=== PATIENT | female | born 1940 ===

== ENCOUNTER 2017-08-03 10:14 | Inpatient (IN) | payer MEDICAID, OTHER ==
[2017-08-03 10:25] VITALS: BMI 34.0
[2017-08-03] MEDS ORDERED: Albuterol-Ipratrop 3 mg / 0.5 (3 ml) UD IH STA (10:35)
[2017-08-03] MEDS ORDERED: MethylPREDNISolone 40 mg Vial IVP STA (10:35)
--- NOTE | 2017-08-03 10:41 | ED PDOC ---
Arrival/HPI - General Chief Complaint: Altered Mental Status Time Seen by Provider: 08/03/17 10:25 Historian: Patient, Family - History of Present Illness Narrative History of Present Illness (Text): 08/03/17 10:26 A 77 year old female, whose past medical history includes diabetes on insulin, and kidney failure, presents to the emergency department via EMS accompanied by family member who states when he found the patient this morning in bed she was unresponsive and he checked her blood sugar levels which showed to be at 37, he proceeded to give her a sugar pill that only elevated her level to 39, that is when he decided to call 911. The patient was given dextrose in the field, which brought her new blood sugar reading to 118, the patient was also given oxygen on the field because her oxygen saturation levels were low. The patient currently denies any chest pain, abdominal pain, shortness of breath, fever, or any other complaints at this time. She does note a minor cough and chills. The patient's family member reports the patient had a multiple surgeries for right ankle repair about 3-4 months ago Time/Duration: Prior to Arrival Symptom Onset: Sudden Symptom Course: Improving Activities at Onset: Rest Context: Home Past Medical History - Provider Review Nursing Documentation Reviewed: Yes - Infectious Disease Hx of Infectious Diseases: None - Cardiac Hx Cardiac Disorders: Yes Hx Hypertension: Yes - Pulmonary Hx Respiratory Disorders: No - Neurological Hx Neurological Disorder: No - HEENT Hx HEENT Disorder: No - Renal Hx Renal Disorder: Yes Hx Renal Failure: Yes - Endocrine/Metabolic Hx Endocrine Disorders: Yes Hx Diabetes Mellitus Type 2: Yes - Hematological/Oncological Hx Blood Disorders: No - Integumentary Hx Dermatological Disorder: No - Musculoskeletal/Rheumatological Hx Musculoskeletal Disorders: Yes Hx Arthritis: Yes - Gastrointestinal Hx Gastrointestinal Disorders: No - Genitourinary/Gynecological Hx Genitourinary Disorders: No - Psychiatric Hx Psychophysiologic Disorder: No Hx Substance Use: No - Surgical History Hx Musculoskeletal Surgery: Yes (R ankle) - Anesthesia Hx Anesthesia: Yes Hx Anesthesia Reactions: No Family/Social History - Physician Review Nursing Documentation Reviewed: Yes Family/Social History: No Known Family HX Smoking Status: Never Smoked Hx Alcohol Use: Yes Frequency of alcohol use: Socially Hx Substance Use: No Allergies/Home Meds Allergies/Adverse Reactions: Allergies No Known Allergies Allergy (Verified 08/03/17 15:33) Home Medications: Home Meds Medication Instructions Recorded Confirmed Carvedilol [Coreg] 12.5 mg PO BID 08/03/17 08/03/17 Hydralazine HCl [Hydralazine HCl] 10 mg PO BID 08/03/17 08/03/17 Insulin Detemir [Levemir] 10 units SQ HS 08/03/17 08/03/17 Insulin Lispro [humALOG] 4 units SQ TID 08/03/17 08/03/17 Pravastatin Sodium [Pravachol] 20 mg PO DAILY 08/03/17 08/03/17 amLODIPine [Norvasc] 10 mg PO DAILY 08/03/17 08/03/17 Review of Systems - Physician Review All systems were reviewed & negative as marked: Yes - Review of Systems Constitutional: Other (chills) Respiratory: Cough. absent: SOB Cardiovascular: absent: Chest Pain Gastrointestinal: absent: Abdominal Pain Physical Exam Vital Signs Reviewed: Yes Vital Signs Temp Pulse Resp BP Pulse Ox 08/03/17 13:22 92.2 F L 60 20 130/56 L 93 L 08/03/17 13:10 42 L 90/42 L 08/03/17 12:06 91 F L 38 L 18 90/42 L 97 08/03/17 10:24 91.2 F L 47 L 21 93/37 L 93 L Blood Pressure: Hypotensive Pulse: Bradycardic Respiratory Rate: Apneic Appearance: Positive for: Well-Appearing, Non-Toxic, Comfortable Pain Distress: None Mental Status: Positive for: Alert and Oriented X 3 - Systems Exam Head: Present: Atraumatic, Normocephalic Pupils: Present: PERRL Extroacular Muscles: Present: EOMI Conjunctiva: Present: Normal Mouth: Present: Moist Mucous Membranes Neck: Present: Normal Range of Motion Respiratory/Chest: Present: Wheezes (scattered wheezing ), Decreased Breath Sounds (diminshed breath sounds bilaterally at the bases). No: Respiratory Distress, Accessory Muscle Use Cardiovascular: Present: Regular Rate and Rhythm, Normal S1, S2. No: Murmurs Abdomen: Present: Normal Bowel Sounds. No: Tenderness, Distention, Peritoneal Signs Back: Present: Normal Inspection Upper Extremity: Present: Normal Inspection. No: Cyanosis, Edema Lower Extremity: Present: Edema (1+ edema bilaterally ) Neurological: Present: GCS=15, CN II-XII Intact, Speech Normal Skin: Present: Warm, Dry, Normal Color. No: Rashes Psychiatric: Present: Alert, Oriented x 3, Normal Insight, Normal Concentration Medical Decision Making ED Course and Treatment: pt started on BIPAP ICU consulted- Dr Harvey hunt and accepts to ICU- rec dopamine disc w hosp who will admit Chest X-ray Impression: bilateral pleural effusion - Lab Interpretations Lab Results: 08/03/17 10:30 08/03/17 10:30 Lab Results 08/03/17 11:56: POC Glucose (mg/dL) 128 H 08/03/17 11:44: Influenza Typ A,B (EIA) Negative for flu a/b 08/03/17 11:44: PT 13.6 H, INR 1.23 H, APTT 34.3, D-Dimer, Quantitative 491 H 08/03/17 10:30: pO2 72 H, VBG pH 7.28 L, VBG pCO2 73.0 H*, VBG HCO3 34.3 H, VBG Total CO2 36.5 H, VBG O2 Sat (Calc) 96.5 H, VBG Base Excess 5.1 H, VBG Potassium 4.8, Sodium 140.0, Chloride 104.0, Glucose 91, Lactate 1.1, FiO2 21.0 , Venous Blood Potassium 4.8 08/03/17 10:30: Sodium 141, Chloride 100, Potassium 3.9, Carbon Dioxide 32, Anion Gap 13, BUN 56 H, Creatinine 2.5 H, Est GFR ( Amer) 23, Est GFR ( Non-Af Amer) 19, Random Glucose 90, Calcium 8.5, Total Bilirubin 0.4, AST 35, ALT 22, Alkaline Phosphatase 84, Troponin I < 0.01, NT-Pro-B Natriuret Pep 4220 H, Total Protein 6.9, Albumin 3.5, Globulin 3.4, Albumin/Globulin Ratio 1.0 L, Lipase 42 08/03/17 10:30: WBC 8.4, RBC 4.37, Hgb 9.8 L, Hct 33.5 L, MCV 76.7 L, MCH 22.4 L , MCHC 29.3 L, RDW 19.0 H, Plt Count 551 H, MPV 12.0 H, Gran % 60.5, Lymph % ( Auto) 29.1, [place] % (Auto) 8.5 H, Eos % (Auto) 1.5, Baso % (Auto) 0.4, Gran # 5.08, Lymph # 2.4, [place] # 0.7 H, Eos # 0.1, Baso # 0.03 - RAD Interpretation Radiology Orders: 08/03/17 10:34 CHEST PORTABLE [RAD] Stat - Medication Orders Current Medication Orders: Acetaminophen (Tylenol 325mg Tab) 650 mg PO Q6H PRN PRN Reason: Headache Last Admin: 08/03/17 14:50 Dose: 650 mg MAR Pain/Vitals Document 08/03/17 14:50 MMA (Rec: 08/03/17 14:51 MMA [facility] [id number]) Pain Reassessment Is This A Pain ReAssessment? No Sleep Is patient sleeping during reassessment? No Presence of Pain Presence of Pain Yes Pain Scale Used Pain Scale Used HogueKathieLopez Location Left, Right or Bilateral Bilateral Upper or Lower Upper Pain Location Body Director Of [employer] Description Constant Scale Used [place]-Lopez Pain Behavior Facial Grimacing Heparin Sodium (Porcine) (Heparin) 5,000 units SC Q12 ROMMEL PRN Reason: Protocol Hydrocortisone Sodium Succinate (Solu-Cortef) 50 mg IVP Q8 ROMMEL Dopamine HCl 800 mg/ Dextrose 270 mls @ 8.83 mls/hr IV .Q24H PRN; Protocol; 5 MCG/KG/MIN PRN Reason: TITRATE PER MD ORDER Last Admin: 08/03/17 13:10 Dose: 5 mcg/kg/min, 8.83 mls/hr eMAR Start Stop Document 08/03/17 13:10 EQ (Rec: 08/03/17 13:18 EQ [id number] Intravenous Solution Start Date 08/03/17 Start Time 13:18 OCT Pulse and Blood Pressure Document 08/03/17 13:10 EQ (Rec: 08/03/17 13:18 EQ [facility] [id number]) Pulse Pulse Rate (60-90) 42 Blood Pressure Blood Pressure (100/60-150/90) 90/42 Titration Intervention Document 08/03/17 13:10 EQ (Rec: 08/03/17 13:18 EQ [facility] [id number]) Titration Intake Waste Amount 0 Container Volume 270 Titration Dosing Titration Dose 5 IV Rate 8.83 Intake/Decrease Started Cefepime HCl (Maxipime 1gm) 1 gm in 100 mls @ 100 mls/hr IVPB DAILY ROMMEL PRN Reason: Protocol Levothyroxine Sodium (Synthroid) 100 mcg IVP DAILY ROMMEL Stop: 08/06/17 14:46 Last Admin: 08/03/17 14:50 Dose: 100 mcg IVP Administration Document 08/03/17 14:50 MMA (Rec: 08/03/17 14:50 MMA [facility] [id number]) Charges for Administration # of IVP Administrations 1 Pantoprazole Sodium (Protonix Inj) 40 mg IVP DAILY ROMMEL Discontinued Medications Albuterol/Ipratropium (Duoneb 3 Mg/0.5 Mg (3 Ml) Ud) 3 ml IH ONCE STA Stop: 08/03/17 10:36 Last Admin: 08/03/17 11:19 Dose: 3 ml Atropine Sulfate (Atropine) 0.5 mg IVP STAT STA Stop: 08/03/17 12:19 Last Admin: 08/03/17 12:39 Dose: 0.5 mg IVP Administration Document 08/03/17 12:39 EQ (Rec: 08/03/17 12:39 EQ [facility] [id number]) Charges for Administration # of IVP Administrations 1 Hydrocortisone Sodium Succinate (Solu-Cortef) 100 mg IVP STAT STA Stop: 08/03/17 12:41 Last Admin: 08/03/17 13:07 Dose: 100 mg IVP Administration Document 08/03/17 13:07 EQ (Rec: 08/03/17 13:07 EQ [facility] [id number]) Charges for Administration # of IVP Administrations 1 Piperacillin Sod/Tazobactam Sod (Zosyn 4.5 Gm In Ns 100ml) 4.5 gm in 100 mls @ 200 mls/hr IVPB STAT STA PRN Reason: Protocol Stop: 08/03/17 11:33 Last Admin: 08/03/17 11:46 Dose: 200 mls/hr eMAR Start Stop Document 08/03/17 11:46 MR (Rec: 08/03/17 11:47 MR [id number]) Intravenous Solution Start Date 08/03/17 Start Time 11:46 End Date 08/03/17 End time 12:16 Total Infusion Time 30 Vancomycin HCl (Vancomycin 1gm) 1 gm in 250 mls @ 167 mls/hr IVPB STAT STA PRN Reason: Protocol Stop: 08/03/17 14:11 Last Admin: 08/03/17 13:07 Dose: 167 mls/hr eMAR Start Stop Document 08/03/17 13:07 EQ (Rec: 08/03/17 13:07 EQ [facility] [id number]) Intravenous Solution Start Date 08/03/17 Start Time 13:07 Sodium Chloride (Sodium Chloride 0.9%) 1,000 mls @ 999 mls/hr IV .Q1H1M STA Stop: 08/03/17 15:34 Last Admin: 08/03/17 14:49 Dose: 999 mls/hr eMAR Start Stop Document 08/03/17 14:49 MMA (Rec: 08/03/17 14:50 MMA [facility] [id number]) Intravenous Solution Start Date 08/03/17 Start Time 14:50 End Date 08/03/17 End time 15:50 Total Infusion Time 60 Methylprednisolone (Solu-Medrol) 80 mg IVP STAT STA Stop: 08/03/17 10:36 Last Admin: 08/03/17 11:11 Dose: 80 mg IVP Administration Document 08/03/17 11:11 MR (Rec: 08/03/17 11:11 MR [id number]) Charges for Administration # of IVP Administrations 1 - Scribe Statement The provider has reviewed the documentation as recorded by the Reyna Sutherland Provider Scribe Attestation: All medical record entries made by the Scribe were at my direction and personally dictated by me. I have reviewed the chart and agree that the record accurately reflects my personal performance of the history, physical exam, medical decision making, and the department course for this patient. I have also personally directed, reviewed, and agree with the discharge instructions and disposition. Disposition/Present on Arrival - Present on Arrival Any Indicators Present on Arrival: No History of DVT/PE: No History of Uncontrolled Diabetes: No Urinary Catheter: No History of Decub. Ulcer: No History Surgical Site Infection Following: None - Disposition Have Diagnosis and Disposition been Completed?: Yes Diagnosis: Acute respiratory failure, Hypoglycemia, CHF (congestive heart failure), Hypothermia, Acute kidney injury, Bradycardia Disposition: HOSPITALIZED Disposition Time: 12:41 Condition: SERIOUS Critical Care Time - Critical Care Note Total Time (in mins): 60 Documented critical care: time excludes all time spent performing seperately billable procedures.
[2017-08-03 10:58] LABS: VENOUS BLOOD GAS BASE EXCESS 5.1 mmol/L (0.0-2.0); VENOUS BLOOD PH 7.28 (7.32-7.43)
[2017-08-03 11:00] LABS: BASO # 0.03 K/mm3 (0.0-2.0); BASO % 0.4 % (0.0-3.0); EOS # 0.1 (0.0-0.7); EOS % 1.5 % (1.5-5.0); GRAN # 5.08 (1.4-6.5); GRAN % 60.5 % (50.0-68.0); HEMATOCRIT 33.5 % (36.0-48.0); LYMPH # 2.4 (1.2-3.4); LYMPH % 29.1 % (22.0-35.0); MEAN CELL VOLUME 76.7 fl (80.0-105.0); MEAN CORPUSCULAR HEMOGLOBIN 22.4 pg (25.0-35.0); MEAN CORPUSCULAR HGB CONC 29.3 g/dl (31.0-37.0); MONO # 0.7 (0.1-0.6); MONO % 8.5 % (1.0-6.0); WHITE BLOOD COUNT 8.4 10^3/ul (4.5-11.0)
[2017-08-03] MEDS ORDERED: Piperacill/Tazo 4.5gm in NS 4.5 GM/100 ML BAG IVPB STA (11:04)
[2017-08-03 11:19] LABS: TROPONIN I < 0.01 ng/mL
--- NOTE | 2017-08-03 11:24 | RAD ---
HISTORY: sob COMPARISON: No prior. FINDINGS: LUNGS: Bibasilar opacities. PLEURA: Small bilateral pleural effusion. No pneumothorax. CARDIOVASCULAR: Normal heart size. Pulmonary vascular congestive change. OSSEOUS STRUCTURES: No significant abnormalities. VISUALIZED UPPER ABDOMEN: Normal. OTHER FINDINGS: None. IMPRESSION: Bibasilar opacities with small pleural effusions and pulmonary vascular congestion. Findings consistent with congestive heart failure. Possible pulmonary edema.
[2017-08-03 11:27] LABS: ALKALINE PHOSPHATASE 84 U/L (38-126); ALT/SGPT 22 U/L (7-56); AST/SGOT 35 U/L (14-36); BILIRUBIN,TOTAL 0.4 mg/dL (0.2-1.3); BLOOD UREA NITROGEN 56 mg/dL (7-21); CALCIUM 8.5 mg/dL (8.4-10.5); CARBON DIOXIDE 32 mmol/L (21-33); CHLORIDE 100 mmol/L (98-107); GFR AFRICAN-AMERICAN 23; GLUCOSE,RANDOM 90 mg/dL (70-110); LIPASE 42 U/L (23-300); POTASSIUM 3.9 mmol/L (3.6-5.0); SODIUM 141 mmol/L (132-148); TOTAL PROTEIN 6.9 g/dL (5.8-8.3)
[2017-08-03 12:05] LABS: INR 1.23 (0.93-1.08); PARTIAL THROMBOPLASTIN TIME 34.3 Seconds (25.1-36.5)
--- NOTE | 2017-08-03 12:32 | CARD ---
APPROVED REPORT EKG Measurement Heart [id number] <Conclusion> Marked sinus bradycardia Rightward axis Low voltage QRS Septal infarct, age undetermined Abnormal ECG
[2017-08-03] MEDS ORDERED: Vancomycin 1gm in NS 250ml 1 GM/250 ML BAG IVPB STA (12:42)
[2017-08-03 12:58] LABS: ARTERIAL BLOOD GAS HCO3 30.6 mmol/L (21-28); ARTERIAL BLOOD GAS O2 CAPACITY 12.9 mL/dl (16-24); ARTERIAL BLOOD GAS O2 CONTENT 12.8 ML/dl (15-23); ARTERIAL BLOOD GAS PH 7.33 (7.35-7.45); ARTERIAL BLOOD HGB O2 SAT 96.5 % (95.0-98.0); CARBOXYHEMOGLOBIN 1.8 % (0.5-1.5); HHB 0.9 % (0-5); METHEMOGLOBIN 0.8 % (0.0-3.0)
--- NOTE | 2017-08-03 13:19 | CP.PCM.CON ---
History of Present Illness - History of Present Illness History of Present Illness: CRITICAL CARE CONSULT NOTE HPI: Patient is 77yo , female, Vincentian speaking only, with PMHx of IDDM, HTN , ?CHF, on Betablockers and Insulin (unknown dosages), presented with hypoglycemia from home. Pt was noted to be altered by the family, FS checked 37 , given Glucose pill, repeat FS 39, EMS called. Pt was noted to be bradycardic, sinus, HR 30s, given Atropine 0.5mg IV x 1 and AMP of D50, FS improved to 118. Pt is currently AAOx3, NAD, with no complaints. Pt is currently on BIPAP and bear hugger, noted to be hypothermic. ER Rx: Vanco, Zosyn, Atropine x 1, Solumedrol PMHx: Insulin dependent DM, HTN, ?CHF PSHx: as per HPI Allergies: NKDA Meds: unknown, awaiting home list FHx: NC ROS: as per HPI Review of Systems - Review of Systems Review of Systems: as per HPI Past Patient History - Infectious Disease Hx of Infectious Diseases: None - Past Social History Smoking Status: Never Smoked - CARDIAC Hx Cardiac Disorders: Yes Hx Hypertension: Yes - PULMONARY Hx Respiratory Disorders: No - NEUROLOGICAL Hx Neurological Disorder: No - HEENT Hx HEENT Problems: No - RENAL Hx Chronic Kidney Disease: Yes Hx Renal Failure: Yes - ENDOCRINE/METABOLIC Hx Endocrine Disorders: Yes Hx Diabetes Mellitus Type 2: Yes - HEMATOLOGICAL/ONCOLOGICAL Hx Blood Disorders: No - INTEGUMENTARY Hx Dermatological Problems: No - MUSCULOSKELETAL/RHEUMATOLOGICAL Hx Musculoskeletal Disorders: Yes Hx Arthritis: Yes - GASTROINTESTINAL Hx Gastrointestinal Disorders: No - GENITOURINARY/GYNECOLOGICAL Hx Genitourinary Disorders: No - PSYCHIATRIC Hx Psychophysiologic Disorder: No Hx Substance Use: No - SURGICAL HISTORY Hx Musculoskeletal Surgery: Yes (R ankle) - ANESTHESIA Hx Anesthesia: Yes Hx Anesthesia Reactions: No Meds Allergies/Adverse Reactions: Allergies Allergy/AdvReac Type Severity Reaction Status Date / Time No Known Allergies Allergy Verified 08/03/17 10:33 - Medications Medications: Current Medications Dopamine HCl 800 mg/ Dextrose 270 mls @ 8.83 mls/hr IV .Q24H PRN; Protocol; 5 MCG/KG/MIN PRN Reason: TITRATE PER MD ORDER Vancomycin HCl (Vancomycin 1gm) 1 gm in 250 mls @ 167 mls/hr IVPB STAT STA PRN Reason: Protocol Stop: 08/03/17 14:11 Pantoprazole Sodium (Protonix Inj) 40 mg IVP DAILY ROMMEL Physical Exam - Constitutional Appears: Well, Non-toxic, No Acute Distress Additional comments: on BIPAP - Head Exam Head Exam: ATRAUMATIC - Eye Exam Eye Exam: Normal appearance - Neck Exam Neck exam: Positive for: Full Rom, Normal Inspection - Respiratory Exam Respiratory Exam: NORMAL BREATHING PATTERN Additional comments: bibasilar crackles, no wheezing, rales - Cardiovascular Exam Cardiovascular Exam: Bradycardia, REGULAR RHYTHM, +S1, +S2 - GI/Abdominal Exam GI & Abdominal Exam: Normal Bowel Sounds, Soft - Extremities Exam Extremities exam: Positive for: normal inspection - Neurological Exam Neurological exam: Alert, Oriented x3 - Psychiatric Exam Psychiatric exam: Normal Affect - Skin Skin Exam: Normal Color Results - Vital Signs Recent Vital Signs: Last Vital Signs Temp 91 F L 08/03/17 12:06 Pulse 38 L 08/03/17 12:06 Resp 18 08/03/17 12:06 BP 90/42 L 08/03/17 12:06 Pulse Ox 97 08/03/17 12:06 - Labs Result Diagrams: 08/03/17 10:30 08/03/17 10:30 Labs: Laboratory Results - last 24 hr 08/03/17 08/03/17 08/03/17 10:30 10:30 10:30 WBC 8.4 RBC 4.37 Hgb 9.8 L Hct 33.5 L MCV 76.7 L MCH 22.4 L MCHC 29.3 L RDW 19.0 H Plt Count 551 H MPV 12.0 H Gran % 60.5 Lymph % (Auto) 29.1 [place] % (Auto) 8.5 H Eos % (Auto) 1.5 Baso % (Auto) 0.4 Gran # 5.08 Lymph # 2.4 [place] # 0.7 H Eos # 0.1 Baso # 0.03 PT INR APTT D-Dimer, Quantitative pO2 72 H VBG pH 7.28 L VBG pCO2 73.0 H* VBG HCO3 34.3 H VBG Total CO2 36.5 H VBG O2 Sat (Calc) 96.5 H VBG Base Excess 5.1 H VBG Potassium 4.8 Sodium 141 140.0 Chloride 100 104.0 Glucose 91 Lactate 1.1 FiO2 21.0 Potassium 3.9 Carbon Dioxide 32 Anion Gap 13 BUN 56 H Creatinine 2.5 H Est GFR ( Amer) 23 Est GFR (Non-Af Amer) 19 POC Glucose (mg/dL) Random Glucose 90 Calcium 8.5 Total Bilirubin 0.4 AST 35 ALT 22 Alkaline Phosphatase 84 Troponin I < 0.01 NT-Pro-B Natriuret Pep 4220 H Total Protein 6.9 Albumin 3.5 Globulin 3.4 Albumin/Globulin Ratio 1.0 L Lipase 42 Venous Blood Potassium 4.8 Influenza Typ A,B (EIA) 08/03/17 08/03/17 08/03/17 11:44 11:44 11:56 WBC RBC Hgb Hct MCV MCH MCHC RDW Plt Count MPV Gran % Lymph % (Auto) [place] % (Auto) Eos % (Auto) Baso % (Auto) Gran # Lymph # [place] # Eos # Baso # PT 13.6 H INR 1.23 H APTT 34.3 D-Dimer, Quantitative 491 H pO2 VBG pH VBG pCO2 VBG HCO3 VBG Total CO2 VBG O2 Sat (Calc) VBG Base Excess VBG Potassium Sodium Chloride Glucose Lactate FiO2 Potassium Carbon Dioxide Anion Gap BUN Creatinine Est GFR ( Amer) Est GFR (Non-Af Amer) POC Glucose (mg/dL) 128 H Random Glucose Calcium Total Bilirubin AST ALT Alkaline Phosphatase Troponin I NT-Pro-B Natriuret Pep Total Protein Albumin Globulin Albumin/Globulin Ratio Lipase Venous Blood Potassium Influenza Typ A,B (EIA) Negative for flu a/b - EKG Data EKG shows normal: Sinus rhythm Rate: Bradycardia - Imaging and Cardiology Chest x-ray Status: Image reviewed by me, Report reviewed by me Assessment & Plan - Assessment and Plan (Free Text) Assessment: 77yo female a/w hypotension, bradycardia, hypoglycemia Severe Sepsis Hypotension Bradycardia Hypoglycemia IDDM CHF Renal failure - currently AAOx3, NAD, SBP 90s, HR 40s sinus, hypothermic 91.3 - labs noted - EKG with marked sinus bradycardia, NSST changes - CXR with pulm vasc congestion - ABG pending Recommend: - supp o2 as needed, BIPAP PRN - obtain an ABG - hold BP meds, including Coreg (listed as home med on EMR) - would bolus NS 1L, with frequent lung examination - Start Dopamine drip 5mcg/kg/min, repeat an EKG - cardiology eval - ECHO - check TSH, Free T3, T4, consider an endocrine consult - would give Hydrocortisone 50mg q6hr IV - Broad Spectrum Abx, Vanco, Cefepime, Azithromycin - panculture, check procalcitonin - check UA, Ulytes - IVF hydration - FS q1hr, may need D10W drip - check HgbA1C - Renal Sono - Glaser - GI ppx - DVT ppx - Admit to MICU Patient at high risk for morbidity and mortality Critical care time 40 minutes
[2017-08-03 13:55] LABS: FREE T4 1.02 ng/dL (0.78-2.19); T4 5.1 ug/dL (5.5-11.0)
[2017-08-03 14:02] LABS: IRON 14 ug/dL (45-180)
[2017-08-03 14:09] LABS: T3 0.67 ng/mL (0.97-1.69)
[2017-08-03] MEDS ORDERED: Sodium Chloride 0.9% 1,000 ML IV STA (14:34)
--- NOTE | 2017-08-03 14:42 | CP.PCM.HP ---
<Rafita Mckinney - Last Filed: 08/03/17 18:22> History of Present Illness - History of Present Illness History of Present Illness: Rafita Mckinney DO PGY1 - Internal Medicine H&P CC: Low blood sugar, altered mental status HPI: 77 yo F with PMH of HTN, DM, CKD and CHF presents to ER brought by ambulance which was initially called when the patient was found by her son, unresponsive, with low blood sugar. Patient was lethargic, arousable and obeying commands, on BIPAP, unable to provide much history on her own. Family initially was not at bedside by the time I saw her in the ER, so history was initially obtained from chart review. At home, patient was found to be unresponsive, and blood sugar checked at home was initially 35. The daughter gave the patient a glucose pill which barely improved her blood glucose to 38, with no change in her mental status. At that point the daughter called the ambulance. En route to the ER, patient was given IV dextrose, with subsequent improvement in her blood glucose to 118; also noted to be bradycardic with HR 30 's and was given atropine 0.5mg IV. In the ER, patient was noted to be hypothermic, hypotensive, bradycardic, and hypoxic. Later, the daughter had arrived and brought all her home medications with her, and acted as her historian. She reports that the patient had been feeling ill for the past three days, with chills and malaise. Yesterday, patient was also anorexic, fatigued, did not get out of bed. On exam, patient was still lethargic , though arousable and obeying commands, on BIPAP. ROS was unobtainable due to current mental status. Home meds: Insulin, Pravastatin, Ranitidine, Protonix, Hydralazine, Lasix, Amlodipine, Coreg, Calcitriol, Acetaminophen PRN PMH: Stage V CKD, IDDM, HTN, CHF PSH: ORIF right ankle Soc: Denies tobacco, alcohol, or illicits FHx: Daughter unable to provide history All: NKDA PMD: Patient has multiple doctors, all in [place], including a hydraulic and plumbing installer, auger operator, and court stenographer, but daughter is not sure of the names Present on Admission - Present on Admission Any Indicators Present on Admission: No Past Patient History - Infectious Disease Hx of Infectious Diseases: None - Past Social History Smoking Status: Never Smoked - CARDIAC Hx Cardiac Disorders: Yes Hx Hypertension: Yes - PULMONARY Hx Respiratory Disorders: No - NEUROLOGICAL Hx Neurological Disorder: No - HEENT Hx HEENT Problems: No - RENAL Hx Chronic Kidney Disease: Yes Hx Renal Failure: Yes - ENDOCRINE/METABOLIC Hx Endocrine Disorders: Yes Hx Diabetes Mellitus Type 2: Yes - HEMATOLOGICAL/ONCOLOGICAL Hx Blood Disorders: No - INTEGUMENTARY Hx Dermatological Problems: No - MUSCULOSKELETAL/RHEUMATOLOGICAL Hx Musculoskeletal Disorders: Yes Hx Arthritis: Yes - GASTROINTESTINAL Hx Gastrointestinal Disorders: No - GENITOURINARY/GYNECOLOGICAL Hx Genitourinary Disorders: No - PSYCHIATRIC Hx Psychophysiologic Disorder: No Hx Substance Use: No - SURGICAL HISTORY Hx Musculoskeletal Surgery: Yes (R ankle) - ANESTHESIA Hx Anesthesia: Yes Hx Anesthesia Reactions: No Meds Allergies/Adverse Reactions: Allergies Allergy/AdvReac Type Severity Reaction Status Date / Time No Known Allergies Allergy Verified 08/03/17 15:33 Physical Exam - Constitutional Appears: Toxic, Confused, Chronically Ill Additional comments: Lethargic - Head Exam Head Exam: ATRAUMATIC, NORMOCEPHALIC - Eye Exam Eye Exam: Normal appearance, PERRL. absent: Scleral icterus Pupil Exam: absent: Miosis, Mydriatic Additional comments: Pupils slightly sluggish - ENT Exam ENT Exam: Mucous Membranes Dry - Neck Exam Neck exam: Positive for: Normal Inspection. Negative for: Meningismus - Respiratory Exam Additional comments: Patient was examined on BIPAP. Noted tachypnea, accessory muscle use, diminished breath sounds in bilateral middle and lower lung turner - Cardiovascular Exam Cardiovascular Exam: Bradycardia, REGULAR RHYTHM. absent: JVD Additional comments: Distant heart sounds Cool extremities - GI/Abdominal Exam GI & Abdominal Exam: Normal Bowel Sounds, Soft. absent: Firm, Guarding, Rebound , Rigid - Extremities Exam Extremities exam: Positive for: pedal edema, pedal pulses present. Negative for : calf tenderness Additional comments: Right ankle with chronic appearing ulceration, appears to be healing slowly. Venous stasis skin changes in B/L LE Right ankle also with scar over prior site of ORIF Left wrist with 4-5mm chronic appearing healing ulceration - Neurological Exam Additional comments: Lethargic, arousable, responds to some questions. Oriented to person, place, and time. - Psychiatric Exam Additional comments: Unable to assess - Skin Skin Exam: Dry, Intact, Normal Color Results - Vital Signs Recent Vital Signs: Last Vital Signs Temp 92.2 F L 08/03/17 13:22 Pulse 60 08/03/17 13:22 Resp 20 08/03/17 13:22 BP 130/56 L 08/03/17 13:22 Pulse Ox 93 L 08/03/17 13:22 - Labs Result Diagrams: 08/03/17 10:30 08/03/17 10:30 Labs: Laboratory Results - last 24 hr 08/03/17 08/03/17 08/03/17 12:55 13:00 13:00 pCO2 58 H pO2 101.0 H HCO3 30.6 H ABG pH 7.33 L ABG Total CO2 32.4 H ABG O2 Saturation 99.1 H ABG O2 Content 12.8 L ABG Base Excess 3.8 H ABG Hemoglobin 9.3 L ABG Carboxyhemoglobin 1.8 H POC ABG HHb (Measured) 0.9 ABG Methemoglobin 0.8 ABG O2 Capacity 12.9 L Hgb O2 Saturation 96.5 FiO2 60.0 Iron 14 L TIBC 314 Free T4 1.02 Thyroxine (T4) 5.1 L Total T3 0.67 L TSH 3rd Generation 15.00 H Assessment & Plan - Assessment and Plan (Free Text) Assessment: 77 yo F with PMH of HTN, IDDM, CHF, CKD presents to ER with hypoglycemia, lethargy; noted to be hypothermic, bradycardic and in shock. Admitted to ICU. Plan 1. Shock; septic vs cardiogenic - Patient presented hypothermic, bradycardic, hypotensive, hypoxic on RA, and hypoglycemic - Patient was hypothermic, but no leukocytosis and lactate 1.1; less likely to be infectious - UA, UCx, BCx, and procalcitonin ordered; pending - Started broad spectrum IV abx, will narrow coverage and consider ID consult pending infectious workup results - Patient currently on Mike Hugger for hypothermia, with mild improvement in her temp - Patient received 100mg SoluCortef and 80mg SoluMedrol in ED; continue stress dose steroids SoluCortef 50mg IV Q8 per ICU - CXR was significant for pulmonary vascular congestion and bilateral pleural effusions - Echo ordered; pending - ABG shows hypoxia, hypercarbia, and acute respiratory acidosis - Patient started on Dopamine drip, titratable in the ICU - Patient currently on BIPAP, management per ICU - TSH elevated with low T4; likely a contributing factor though unlikely to be myxedema coma as levels are not in the extreme ranges - D-dimer elevated; cannot order CTA due to renal failure; ordered LE dopplers to r/o DVT/PE; pending - Cardio consult requested, appreciate recs 2. Hypothyroidism - Patient does not have prior diagnosis of hypothyroidism. Thyroid studies indicate primary hypothyroidism. - Start levothyroxine 100mcg IV daily for three days - Discussed case with court stenographer Dr. Jessica Andujar who recommended IV synthroid , as above - Endocrinology on consult, appreciate recs 3. IDDM - Patient presented with hypoglycemia - Blood glucose improved after administration of dextrose in the ambulance - Continue to monitor BS hourly in ICU, consider starting D10W, as per ICU team - HbA1c 8.6 4. h/o HTN - Hold all antihypertensives at this time, as patient is hypotensive - Patient currently on dopamine, as above - Continue to monitor BP and titrate pressers vs antihypertensives per ICU team 5. h/o CHF - CXR significant for pulmonary vascular congestion, with elevated BNP - Patient is in shock, requiring fluid administration; monitor respiratory status closely while getting IVF - Hold BB, ACEi in state of bradycardia and hypotension - Hold nonurgent oral medications (statin) at this time, until patient is stabilized and passes swallow eval - Daily weight - Strict I&O 6. h/o CKD stage V - No baseline labs to compare - Monitor I&O - Renal US ordered, pending - Patient takes calcitriol at home 7. Anemia - Likely 2/2 CKD vs chronic disease vs iron deficiency vs mixed etiology - Ordered Iron studies, folate, B12, FOBT - No signs of active bleeding - Continue to monitor GI/DVT Ppx - Protonix and Heparin Patient seen, discussed, and reviewed with attending <Flavia Berry - Last Filed: 08/03/17 21:53> Results - Vital Signs Recent Vital Signs: Last Vital Signs Temp 98.4 F 08/03/17 21:10 Pulse 76 08/03/17 21:10 Resp 22 08/03/17 21:10 BP 128/57 L 08/03/17 21:00 Pulse Ox 100 08/03/17 21:23 - Labs Result Diagrams: 08/03/17 10:30 08/03/17 10:30 Labs: Laboratory Results - last 24 hr 08/03/17 08/03/17 08/03/17 12:55 13:00 13:00 pCO2 58 H pO2 101.0 H HCO3 30.6 H ABG pH 7.33 L ABG Total CO2 32.4 H ABG O2 Saturation 99.1 H ABG O2 Content 12.8 L ABG Base Excess 3.8 H ABG Hemoglobin 9.3 L ABG Carboxyhemoglobin 1.8 H POC ABG HHb (Measured) 0.9 ABG Methemoglobin 0.8 ABG O2 Capacity 12.9 L Hgb O2 Saturation 96.5 FiO2 60.0 POC Glucose (mg/dL) Hemoglobin A1c Iron 14 L TIBC 314 % Saturation 4 L Ferritin 20.9 Vitamin B12 835 Folate 16.2 Procalcitonin Free T4 Thyroxine (T4) Free T3 pg/mL 2.40 L Total T3 TSH 3rd Generation 08/03/17 08/03/17 08/03/17 13:00 13:00 13:00 pCO2 pO2 HCO3 ABG pH ABG Total CO2 ABG O2 Saturation ABG O2 Content ABG Base Excess ABG Hemoglobin ABG Carboxyhemoglobin POC ABG HHb (Measured) ABG Methemoglobin ABG O2 Capacity Hgb O2 Saturation FiO2 POC Glucose (mg/dL) Hemoglobin A1c 8.6 H Iron TIBC % Saturation Ferritin Vitamin B12 Folate Procalcitonin 0.06 L Free T4 1.02 Thyroxine (T4) 5.1 L Free T3 pg/mL Total T3 0.67 L TSH 3rd Generation 15.00 H 08/03/17 16:34 pCO2 pO2 HCO3 ABG pH ABG Total CO2 ABG O2 Saturation ABG O2 Content ABG Base Excess ABG Hemoglobin ABG Carboxyhemoglobin POC ABG HHb (Measured) ABG Methemoglobin ABG O2 Capacity Hgb O2 Saturation FiO2 POC Glucose (mg/dL) 85 Hemoglobin A1c Iron TIBC % Saturation Ferritin Vitamin B12 Folate Procalcitonin Free T4 Thyroxine (T4) Free T3 pg/mL Total T3 TSH 3rd Generation Attending/Attestation - Attestation I have personally seen and examined this patient.: Yes I have fully participated in the care of the patient.: Yes I have reviewed all pertinent clinical information: Yes Notes (Text): 08/03/17 21:46 77 year old female with past medical history of hypertension, diabetes and CKD who presented with altered mental status. She was found to have significant hypoglycemia, hypothermia, bradycardia and hypotension. CXR showed pulmonary vascular congestion consistent with CHF. Consider cardiogenic vs septic shock. She is admitted to the ICU and started on broad spectum antibiotics and dopamine drip. Cardiology evaluation is requested and echocardiogram is ordered. Her coreg is on hold She was also found to have hypothyroidism and started on iv synthroid. Endocrinology evaluation is requested. Continue with q1h fingersticks. Her levemir and DM medications are currently on hold. A1c is 8.6. She also has CKD (unknown baseline) and microcytic anemia. Anemia workup is ordered. D-dimer was elevated. LE dopplers is ordered. Flavia Berry MD Hospitalist.
[2017-08-03] MEDS: Levothyroxine 100 mcg (0.1 mg) Inj IVP SCH (14:50)
[2017-08-03 16:52] LABS: FT3 2.4 pg/mL (2.77-5.27)
[2017-08-03 17:44] LABS: FOLATE 16.2 ng/mL
[2017-08-03] MEDS ORDERED: Influenza Vaccine 60 mcg/0.5 mL SYR (4YR UP) IM ONE (17:57)
[2017-08-03] MEDS ORDERED: Pneumococcal 23-Valent Vaccine IM ONE (17:57)
--- NOTE | 2017-08-03 23:35 | PN ---
DATE: ENDOCRINOLOGY CONSULTATION LOCATION: ICU 128, room 3. HISTORY OF PRESENT ILLNESS: This is a 77-year-old female with known history of type 2 insulin-requiring diabetes and hypertension, presenting here with marked hypoglycemia and associated unresponsiveness with a glucose level of 35 noted at home and was given D50 bolus injections, and at this time, is awake and responsive, but still lethargic and hypersomnolence. She also was found to be hypotensive, hypothermic, bradycardic, and hypoxic as noted thereof. PAST MEDICAL HISTORY: As mentioned above, history of type 2 insulin-requiring diabetes, currently on a combination of Levemir given as 10 units at bedtime with Humalog at 4 units subcu t.i.d. before meals. History of hypertension and dyslipidemia. History of diabetic retinopathy, polyneuropathy and nephropathy with underlying chronic kidney disease. History of coronary artery disease and peripheral arterial disease and vasculopathy. Also prior history of congestive heart failure, presenting here also with congestive heart failure as noted. FAMILY HISTORY: Positive for diabetes and hypertension. SOCIAL HISTORY: The patient has supportive family, who actually came with the patient to the hospital. No known substance use. REVIEW OF SYSTEMS: As mentioned above, admits to generalized body weakness with easy fatigability and tiredness with suboptimal energy level. Also admits to marked cold intolerance and bifrontal headaches with visual blurring as noted. No chest pains or palpitations, but admits to progressive shortness of breath, especially on exertion. Her oral intake has been variable and suboptimal with nausea and dyspepsia and habitual constipation. PHYSICAL EXAMINATION: GENERAL: Average built female in no apparent distress. VITAL SIGNS: Blood pressure of 80 systolic and pulse of 50 beats per minute regular, temperature 96, and respirations 20. Height is 5 feet 3 inches, weight is 192 pounds. HEENT: Head normocephalic. Eyes anicteric with pink conjunctivae. Funduscopy is not possible at this time. Ears, nose and throat otherwise normal. NECK: Supple. Thyroid gland is normal size. No carotid bruits or cervical adenopathy. CARDIOPULMONARY: Has some adynamic precordium. S1 and S2 are slow and regular. LUNGS: Clear to auscultation. ABDOMEN: Flat, soft with positive bowel sounds. EXTREMITIES: No peripheral edema. Pulses are +2 bilaterally. LABORATORY DATA: Her chemistries showed BUN of 56, sodium 141, potassium 3.9, chloride 100, CO2 of 32, glucose 90 and creatinine 2.5. Her TSH is 15.0 with a total T4 of 5.1 and a T3 of 0.67. The proBNP is 4220. ASSESSMENT: This is a 77-year-old female with symptomatic hypoglycemia and associated neuroglycopenic and hyperadrenergic manifestations, presented here with unresponsiveness and also evaluated to have marked hypothermia, bradycardia, hypotension, and hypoxemia, currently on a BiPAP mask as noted. She also has early hypothyroidism, but no evidence of myxedema and itself would not explain the hypothermia nor the bradycardia at this time. However, because of the clinical and hemodynamic instability, would concur with the present medical management as discussed with the medical accountant. Plan of management was discussed with the medical staff. We will go head and give her a lower dose of levothyroxine given as 100 mcg daily IV push for the next 3 days as ordered and we will obtain serial thyroid studies and start her on oral levothyroxine replacement therapy as indicated. We will also obtain serial chemistries and supplement accordingly as needed. Hemoglobin A1c will be done control and baseline serum cortisol level will be obtained; however, she has been started empirically on IV steroid therapy which will not give us accurate report of the hormone assays thereof. Jessica Andujar MD
[2017-08-04 06:55] LABS: HEMATOCRIT 35.1 % (36.0-48.0); MEAN CELL VOLUME 76.1 fl (80.0-105.0); MEAN CORPUSCULAR HEMOGLOBIN 22.1 pg (25.0-35.0); MEAN CORPUSCULAR HGB CONC 29.1 g/dl (31.0-37.0); MEAN PLATELET VOLUME 12.5 fl (7.0-11.0); RED CELL DISTRIBUTION WIDTH 19.7 % (11.5-14.5)
[2017-08-04 07:14] LABS: WHITE BLOOD COUNT 30.1 10^3/ul (4.5-11.0)
[2017-08-04 07:15] LABS: T4 6.4 ug/dL (5.5-11.0)
[2017-08-04 07:28] LABS: THYROID STIMULATING HORMONE 8.38 mIU/mL (0.46-4.68)
[2017-08-04 07:48] LABS: ALB/GLOB RATIO 1.1 (1.1-1.8); BILIRUBIN,TOTAL 0.8 mg/dL (0.2-1.3); CALCIUM 9.1 mg/dL (8.4-10.5); MAGNESIUM 2.2 mg/dL (1.7-2.2); POTASSIUM 4.8 mmol/L (3.6-5.0); TOTAL PROTEIN 7.5 g/dL (5.8-8.3)
--- NOTE | 2017-08-04 08:50 | CP.PCM.PN ---
Subjective - Date & Time of Evaluation Date of Evaluation: 08/04/17 Time of Evaluation: 07:15 - Subjective Subjective: Pt seen and examined, reports to be doing significantly better since yesterday. Denies fever, chills, cough, chest pain, SOB, palpitations, GROSS, dizziness. No other constitutional symptoms. Objective - Vital Signs/Intake and Output Vital Signs (last 24 hours): Temp Pulse Resp BP Pulse Ox 97.4 F L 62 12 118/46 L 97 08/04/17 06:40 08/04/17 06:40 08/04/17 06:40 08/04/17 08:13 08/04/17 06:40 Intake and Output: 08/04/17 08/04/17 06:59 18:59 Intake Total 124 Output Total 200 Balance -76 - Medications Medications: Current Medications Acetaminophen (Tylenol 325mg Tab) 650 mg PO Q6H PRN PRN Reason: Headache Last Admin: 08/03/17 14:50 Dose: 650 mg Heparin Sodium (Porcine) (Heparin) 5,000 units SC Q12 [facility] PRN Reason: Protocol Last Admin: 08/03/17 21:57 Dose: 5,000 units Hydrocortisone Sodium Succinate (Solu-Cortef) 50 mg IVP Q8 [facility] Last Admin: 08/04/17 07:11 Dose: 50 mg Dopamine HCl 800 mg/ Dextrose 270 mls @ 8.83 mls/hr IV .Q24H PRN; Protocol; 5 MCG/KG/MIN PRN Reason: TITRATE PER MD ORDER Last Titration: 08/03/17 19:05 Dose: 0 mcg/kg/min, 0 mls/hr Cefepime HCl (Maxipime 1gm) 1 gm in 100 mls @ 100 mls/hr IVPB DAILY [facility] PRN Reason: Protocol Levothyroxine Sodium (Synthroid) 100 mcg IVP DAILY [facility] Stop: 08/06/17 14:46 Last Admin: 08/03/17 14:50 Dose: 100 mcg Pantoprazole Sodium (Protonix Inj) 40 mg IVP DAILY [facility] - Labs Labs: 08/04/17 06:00 08/04/17 06:00 PT 13.6 SECONDS (9.4-12.5) H 08/03/17 11:44 INR 1.23 (0.93-1.08) H 08/03/17 11:44 APTT 34.3 Seconds (25.1-36.5) 08/03/17 11:44 - Constitutional Appears: Well, Non-toxic, No Acute Distress - Head Exam Head Exam: NORMAL INSPECTION - Eye Exam Eye Exam: EOMI, Normal appearance - ENT Exam ENT Exam: Mucous Membranes Moist - Respiratory Exam Respiratory Exam: NORMAL BREATHING PATTERN Additional comments: Decreased breath sounds at the bases, crackles - Cardiovascular Exam Cardiovascular Exam: REGULAR RHYTHM, +S1, +S2 - GI/Abdominal Exam GI & Abdominal Exam: Soft, Normal Bowel Sounds - Neurological Exam Neurological Exam: Alert, Awake - Psychiatric Exam Psychiatric exam: Normal Affect Assessment and Plan - Assessment and Plan (Free Text) Assessment: 77yo female a/w hypotension, bradycardia, hypoglycemia Severe Sepsis Hypotension, resolved Bradycardia, resolved Hypoglycemia, resolved IDDM CHF Renal failure, unknown baseline Hypothyroidism - currently AAOx3, NAD, BP 118/46 HR 60s sinus, normothermic, off Dopamine drip - labs noted - CXR with worsening pulm vasc congestion - on 2LNC, sat 99%, off BIPAP Recommend: - supp o2 as needed - would hold further IVF - Lasix IV 40mg X 1 - cardiology eval - ECHO - follow endocrine consult, c/w Synthroid IV x 2 days - taper Hydrocortisone 50mg q6hr IV - Broad Spectrum Abx, Vanco, Cefepime, Azithromycin - follow up panculture, check procalcitonin - check UA, Ulytes - FS control, would hold off basal insulin for now - Renal Sono - GI ppx - DVT ppx - STABLE, transfer to telemetry
[2017-08-04] MEDS ORDERED: Milrinone 20mg/100ml D5W 100 ML IV PRN ×2 (09:14→13:51)
--- NOTE | 2017-08-04 09:31 | US ---
HISTORY: Leg pain and swelling. Evaluate for DVT PHYSICIAN(S): Shyam Severino MD. TECHNIQUE: Duplex sonography and color-flow Doppler with graded compression were used to evaluate the deep venous systems of both lower extremities. The exam is limited by edema FINDINGS: The visualized deep venous systems of both lower extremities are sonographically normal and compressible. Normal wave forms and augmentation are seen. There is no sonographic evidence for deep venous thrombosis in the visualized segments of both lower extremities. IMPRESSION: No sonographic evidence for deep venous thrombosis in the visualized segments of both lower extremities.
[2017-08-04] MEDS: Cefepime 1gm in NS 100ml 1 GM/100 ML BAG IVPB SCH (10:45)
[2017-08-04] MEDS: Levothyroxine 100 mcg (0.1 mg) Inj IVP SCH (10:46)
--- NOTE | 2017-08-04 10:46 | CON ---
DATE: 08/04/2017 CONSULT SERVICE: Cardiology. REASON FOR CONSULTATION AND FOLLOWUP: Cardiac evaluation, rule out CHF, admitted with hypoglycemia, altered mental status, and coronary artery disease. BRIEF HISTORY: This is a 77-year-old [place] speaking female with past medical history of coronary artery disease, detail unknown, hypertension, diabetes, chronic kidney disease, who was found to be unresponsive at home, possibly secondary to hypoglycemia, hypothermia, hypotensive, and hypoxic. As per the electronic record, the patient was feeling sick for 3-4 days and was anorexic and feeling very weak and lethargic prior to admission. PAST MEDICAL HISTORY: Significant for chronic kidney disease, hypertension, hyperlipidemia, diabetes, and possibly CHF, and CAD, details unknown. SOCIAL HISTORY: Denies any history of alcohol abuse. CURRENT MEDICATIONS: At home; insulin, pravastatin, ranitidine, Protonix, hydralazine, Lasix, amlodipine, Coreg, calcitriol, and acetaminophen. PAST SURGICAL HISTORY: Significant for ORIF of right ankle. REVIEW OF SYSTEMS: As per HPI. PHYSICAL EXAMINATION: VITAL SIGNS: Temperature afebrile, heart rate 62, blood pressure 118/46. HEENT: PERRLA intact. NECK: Supple. No carotid bruits or thyromegaly. CHEST: Clear to auscultation. HEART: S1 and S2 regular. ABDOMEN: Soft. EXTREMITIES: Clubbing and cyanosis negative. LABORATORY DATA: Blood workup as follows, WBC 30.1, hemoglobin 10.2, hematocrit 35.1, platelet count 3612. Chemistry shows sodium 140, potassium 4.0, chloride 100, carbon dioxide 24, anion gap of 23, BUN 54, and creatinine 3. GFR 18. IMPRESSION: Sepsis, hypothermia, hypoglycemia, stage IV to V chronic kidney disease, hypertension, coronary artery disease, and elevated BNP. RECOMMENDATIONS: We will start Pravachol. Continue IV Lasix, get more information from the daughter. Followup labs. So far, troponin remains negative. Further recommendations depend upon hospital course, we will follow. Aggressive treatment for sepsis, source is unclear, but the WBC is 30,000. Needs to cover broad-spectrum antibiotics. We will get more information as is available from the daughter. We will get echo to assess LV function. We will follow with you. We will increase Lasix to 40 mg twice a day and monitor renal function closely. Continue DVT prophylaxis with heparin. We will get the TSH level as well as lipid profile. Chest x-ray consistent with pulmonary edema, congestive heart failure. Thank you Dr. Berry for providing us the opportunity in taking care of the patient, Danielle Renner. Amanda Matthews MD
[2017-08-04 11:19] LABS: FREE T4 1.3 ng/dL (0.78-2.19)
--- NOTE | 2017-08-04 11:34 | CP.PCM.PN ---
<Rafita Mckinney - Last Filed: 08/04/17 11:30> Subjective - Date & Time of Evaluation Date of Evaluation: 08/04/17 Time of Evaluation: 07:30 - Subjective Subjective: Rafita Mckinney DO PGY1 - Internal Medicine Progress Note Patient seen and examined at bedside in the ICU. Patient was off dopamine and IVF, not receiving any IV medications. She appears much better than yesterday. She reports feeling better overall. She does recall the events of the preceding day. She does not know what precipitated the events. She does report two days of frequent watery bowel movements. She now denies any chest pain, abdominal pain, nausea, vomiting, constipation, fever, chills. She does report a headache , which she says she had yesterday, but now is somewhat improved. She also reports shortness of breath, which is also improved since yesterday. Objective - Vital Signs/Intake and Output Vital Signs (last 24 hours): Temp Pulse Resp BP Pulse Ox 97.4 F L 62 12 118/46 L 97 08/04/17 06:40 08/04/17 06:40 08/04/17 06:40 08/04/17 08:13 08/04/17 06:40 Intake and Output: 08/04/17 08/04/17 06:59 18:59 Intake Total 124 Output Total 200 Balance -76 - Medications Medications: Current Medications Acetaminophen (Tylenol 325mg Tab) 650 mg PO Q6H PRN PRN Reason: Headache Last Admin: 08/03/17 14:50 Dose: 650 mg Ferrous Gluconate (Fergon) 324 mg PO TID [facility] Heparin Sodium (Porcine) (Heparin) 5,000 units SC Q12 [facility] PRN Reason: Protocol Last Admin: 08/04/17 10:46 Dose: 5,000 units Hydrocortisone Sodium Succinate (Solu-Cortef) 50 mg IVP Q12 [facility] Dopamine HCl 800 mg/ Dextrose 270 mls @ 8.83 mls/hr IV .Q24H PRN; Protocol; 5 MCG/KG/MIN PRN Reason: TITRATE PER MD ORDER Last Titration: 08/03/17 19:05 Dose: 0 mcg/kg/min, 0 mls/hr Cefepime HCl (Maxipime 1gm) 1 gm in 100 mls @ 100 mls/hr IVPB DAILY [facility] PRN Reason: Protocol Last Admin: 08/04/17 10:45 Dose: 100 mls/hr Milrinone Lactate/Dextrose (Primacor 20mg/100ml D5w) 100 mls @ 9.798 mls/hr IV .[id number] PRN; Protocol; 0.375 MCG/KG/MIN PRN Reason: TITRATE PER MD ORDER Insulin Human Lispro (Humalog Low) 0 units SC ACHS [facility] PRN Reason: Protocol Levothyroxine Sodium (Synthroid) 100 mcg IVP DAILY [facility] Stop: 08/06/17 14:46 Last Admin: 08/04/17 10:46 Dose: 100 mcg Pantoprazole Sodium (Protonix Inj) 40 mg IVP DAILY [facility] Last Admin: 08/04/17 10:46 Dose: 40 mg Sevelamer HCl (Renagel) 800 mg PO TID [facility] Vitamin B Complex/Vit C/Folic Acid (Nephro-David) 1 tab PO 0800 [facility] - Labs Labs: 08/04/17 06:00 08/04/17 06:00 PT 13.6 SECONDS (9.4-12.5) H 08/03/17 11:44 INR 1.23 (0.93-1.08) H 08/03/17 11:44 APTT 34.3 Seconds (25.1-36.5) 08/03/17 11:44 - Constitutional Appears: Non-toxic, No Acute Distress - Head Exam Head Exam: ATRAUMATIC, NORMOCEPHALIC - Eye Exam Eye Exam: EOMI, Normal appearance, PERRL. absent: Scleral icterus - ENT Exam ENT Exam: Mucous Membranes Dry - Neck Exam Neck Exam: Full ROM. absent: Meningismus Additional comments: One small anterior subcutaneous cyst vs lymph node in the anterior left neck, nontender, mobile, firm. - Respiratory Exam Additional comments: Patient saturating well on O2 by NC No respiratory distress or accessory muscle use Decreased breath sound bilateral lung bases, and right mid-lung field Diffuses rales throughout - Cardiovascular Exam Cardiovascular Exam: REGULAR RHYTHM, +S1, +S2 Additional comments: Borderline bradycardia No JVD Warm extremeties without cyanosis Normal capillary refill - GI/Abdominal Exam GI & Abdominal Exam: Soft, Normal Bowel Sounds. absent: Distended, Firm, Guarding, Rigid, Tenderness - Extremities Exam Extremities Exam: absent: Calf Tenderness Additional comments: b/l LE with 2-3+ pitting edema to lower thighs just above knees Chronic venous stasis changes bilaterally - Neurological Exam Neurological Exam: Alert, Awake, CN II-XII Intact, Oriented x3 - Psychiatric Exam Psychiatric exam: Normal Affect, Normal Mood - Skin Skin Exam: Dry Additional comments: Right ankle with chronic appearing ulceration, appears to be healing slowly. Venous stasis skin changes in B/L LE Right ankle also with scar over prior site of ORIF Left wrist with 4-5mm chronic appearing healing ulceration Assessment and Plan - Assessment and Plan (Free Text) Assessment: 77 yo F with PMH of HTN, IDDM, CHF, CKD presents to ER with hypoglycemia, lethargy; noted to be hypothermic, bradycardic and in shock. Admitted to ICU, on dopamine drip, BIPAP, and Mike Hugger. Patient clinically improving, off BIPAP/drip/warmer, being transfered to telemetry. Plan 1. Shock; septic vs cardiogenic - Patient presented hypothermic, bradycardic, hypotensive, hypoxic on RA, and hypoglycemic; now resolved - Hypothermia resolved, now has marked leukocytosis, likely 2/2 steroid administration - UA and UCx pending, BCx negative after 24 hrs; procal low - Patient admits to diarrhea, and did recently complete a course of Abx for UTI ; ordered stool for C diff - Continue broad spectrum IV abx pending further workup - Taper stress dose steroids; Solucortef 50mg IV Q12 today, then QD tomorrow - Initial ABG showed hypoxia, hypercarbia, and acute respiratory acidosis; patient now saturating well on 2LNC - Echo ordered; pending - Patient is off dopamine drip and IVF, maintain MAP; continue to hold IVF - Patient started on milrinone drip per cardio - Continue Lasix 40mg IV BID per cardio - TSH and T4/FT4 improved today; continue IV levothyroxine as below, per endo - D-dimer elevated; LE dopplers negative for DVT; unlikely PE - Cardio on consult, appreciate recs 2. Hypothyroidism - Patient does not have prior diagnosis of hypothyroidism. Thyroid studies indicate primary hypothyroidism. - Serial thyroid studies improving - Continue levothyroxine 100mcg IV daily for two days, per endo - Endocrinology on consult, appreciate recs 3. IDDM - Patient presented with hypoglycemia, now resolved - BS stable since admission; continue to hold all hypoglycemic agents - Accucheck ACHS - HbA1c 8.6 4. h/o HTN - Continue to hold all antihypertensives at this time, patient remains borderline hypotensive, though stable MAP - Patient now off dopamine; started on milrinone per cardio - Continue to monitor 5. h/o CHF - CXR significant for pulmonary vascular congestion, with elevated BNP - Patient's shock state resolved, will hold IVF and continue to monitor - Start Lasix as above - Patient started on milrinone drip, as above - Hold BB, ACEi in state of borderline bradycardia and hypotension - Hold nonurgent oral medications (statin) at this time, until patient is stabilized and passes swallow eval - Daily weight - Strict I&O 6. h/o CKD stage V - No baseline labs to compare; renal function worsened today - Monitor I&O - Renal US ordered, pending - Patient takes calcitriol at home - Nephro consult requested, appreciate recs 7. Anemia - Likely 2/2 CKD vs chronic disease vs iron deficiency vs mixed etiology - H&H stable, no signs of active bleeding - B12 and folate WNL - Iron studies show low serum iron but normal ferritin - FOBT pending - Continue to monitor GI/DVT Ppx - Protonix and Heparin Patient seen, discussed, and reviewed with attending <Flavia Berry - Last Filed: 08/04/17 12:51> Objective - Vital Signs/Intake and Output Vital Signs (last 24 hours): Temp Pulse Resp BP Pulse Ox 97.4 F L 59 L 12 101/47 L 100 08/04/17 06:40 08/04/17 12:40 08/04/17 12:40 08/04/17 12:00 08/04/17 12:40 Intake and Output: 08/04/17 08/04/17 06:59 18:59 Intake Total 124 Output Total 200 Balance -76 - Medications Medications: Current Medications Acetaminophen (Tylenol 325mg Tab) 650 mg PO Q6H PRN PRN Reason: Headache Last Admin: 08/03/17 14:50 Dose: 650 mg Ferrous Gluconate (Fergon) 324 mg PO TID [facility] Heparin Sodium (Porcine) (Heparin) 5,000 units SC Q12 [facility] PRN Reason: Protocol Last Admin: 08/04/17 10:46 Dose: 5,000 units Hydrocortisone Sodium Succinate (Solu-Cortef) 50 mg IVP Q12 [facility] Dopamine HCl 800 mg/ Dextrose 270 mls @ 8.83 mls/hr IV .Q24H PRN; Protocol; 5 MCG/KG/MIN PRN Reason: TITRATE PER MD ORDER Last Titration: 08/03/17 19:05 Dose: 0 mcg/kg/min, 0 mls/hr Cefepime HCl (Maxipime 1gm) 1 gm in 100 mls @ 100 mls/hr IVPB DAILY [facility] PRN Reason: Protocol Last Admin: 08/04/17 10:45 Dose: 100 mls/hr Milrinone Lactate/Dextrose (Primacor 20mg/100ml D5w) 100 mls @ 9.798 mls/hr IV .[id number] PRN; Protocol; 0.375 MCG/KG/MIN PRN Reason: TITRATE PER MD ORDER Insulin Human Lispro (Humalog Low) 0 units SC ACHS [facility] PRN Reason: Protocol Last Admin: 08/04/17 12:40 Dose: 1 units Levothyroxine Sodium (Synthroid) 100 mcg IVP DAILY [facility] Stop: 08/06/17 14:46 Last Admin: 08/04/17 10:46 Dose: 100 mcg Pantoprazole Sodium (Protonix Inj) 40 mg IVP DAILY [facility] Last Admin: 08/04/17 10:46 Dose: 40 mg Sevelamer HCl (Renagel) 800 mg PO TID [facility] Vitamin B Complex/Vit C/Folic Acid (Nephro-David) 1 tab PO 0800 [facility] - Labs Labs: 08/04/17 06:00 08/04/17 06:00 PT 13.6 SECONDS (9.4-12.5) H 08/03/17 11:44 INR 1.23 (0.93-1.08) H 08/03/17 11:44 APTT 34.3 Seconds (25.1-36.5) 08/03/17 11:44 Attending/Attestation - Attestation I have personally seen and examined this patient.: Yes I have fully participated in the care of the patient.: Yes I have reviewed all pertinent clinical information, including history, physical exam and plan: Yes Notes (Text): 08/04/17 12:47 77 year old female with past medical history of hypertension, diabetes and CKD who presented with altered mental status. She was found to have significant hypoglycemia, hypothermia, bradycardia and hypotension which have now resolved. CXR showed pulmonary vascular congestion consistent with CHF. She was given dose of lasix and started on milrinone by cardiology. Echocardiogram is pending. Septic workup is also in progress. Continue with iv antibiotics for now and tapering iv steroids. Leukocytosis noted; possibly secondary to high dose iv steriods. However also complains of loose stools so stool for cdif is ordered. Her home medications for diabetes and hypertension are currently on hold. She is on iv synthroid for hypothyroidism. Endocrinology is following. Nephrology evaluation and renal sonogram is ordered for acute on chronic kidney disease. Anemia workup was ordered as well. D-dimer was elevated however LE doppler was negative for DVT. Flavia Berry MD Hospitalist.
[2017-08-04] MEDS: Insulin Lispro (humaLOG) LOW Coverage SC SCH ×3 (12:40→21:20)
[2017-08-04 14:22] LABS: URINE BILIRUBIN SMALL (NEGATIVE); URINE BLOOD TRACE-LYSED (NEGATIVE); URINE GLUCOSE (UA) NEGATIVE (NEGATIVE); URINE KETONE NEGATIVE (NEGATIVE); URINE LEUKOCYTE ESTERASE TRACE Leu/uL (NEGATIVE); URINE PROTEIN 100 mg/dL (<30 mg/dL); URINE UROBILINOGEN 0.2 E.U./dL (<1 E.U./dL)
[2017-08-04 14:24] LABS: URINE APPEARANCE SL CLOUDY (CLEAR); URINE COLOR YELLOW (YELLOW)
[2017-08-04 14:25] LABS: URINE BACTERIA FEW (NEG); URINE CALCIUM OXALATE CRYSTALS FEW /hpf; URINE RBC 0 - 2 /hpf (0-2)
[2017-08-04] MEDS: Milrinone 20mg/100ml D5W 100 ML IV PRN (15:15)
--- NOTE | 2017-08-04 15:17 | US ---
PROCEDURE: Ultrasound of the Kidneys HISTORY: renal insufficiency COMPARISON: None available. TECHNIQUE: Sonogram of the kidneys. FINDINGS: RIGHT KIDNEY: Measures: 9.5 x 4.2 x 4.4 cm. Normal in size, contour and echogenicity. No stone, solid mass lesion or hydronephrosis visualized. LEFT KIDNEY: Measures: 10.5 x 4.3 x 4.7 cm. Normal in size, contour and echogenicity. No stone, solid mass lesion or hydronephrosis visualized. OTHER FINDINGS: None. IMPRESSION: Unremarkable renal sonogram.
--- NOTE | 2017-08-04 15:37 | CP.PCM.CON ---
History of Present Illness - History of Present Illness History of Present Illness: Initial Nephrology Consultation: Assessment: critical Acute Kidney Injury (N17.9) likely hemodynamic, cardio-renal Fluid overload/CHF exacerbation Hypothermia, hypothyroidism Diabetic chronic Kidney Disease (E11.22) Hypertensive Chronic Kidney Disease (I12.9) Chronic Kidney Disease (N18.4 ) Stage 4with ?mg proteinuria (R80.9) likely due to DM Anemia (D64.9), Hyperphosphatemia (E83.39), HTN (I12.9) respi acidosis Obesity Plan No acute need for renal replacement therapy at this time. Hypertension control with meds as ordered. Patient not on ACEI/ARB due to KYLAH and low BP Monitor Input/Output, daily weights and renal function with basic metabolic panel will attempt low dose lasix 20 mg IV bid started iron supplements and phos binders Check urine analysis, spot protein/creatinine and albumin/creatinine ratio, renal sonogram. Check for 25-OH vitamin D, iPTH, serum protein electrophoresis with immunofixation Dose meds/antibiotics for reduced GFR. Avoid fleets enema/magnesium based laxatives. Avoid nephrotoxins/NSAIDs/ iodinated contrast (unless needed emergently) Glycemic control Further work up/management as per primary team Thanks for allowing me to participate in care of your patient. Will follow patient with you. Please call if any Qs Dr Myles Zhong Office: [phone] Chief Complaint; shortness of breath HPI: Pt is a 77 F with hx of diabetes Mellitus ( 35 years), hypertension (many years), CHF, CKD presented with complaints of shortness of breath and found to have hypothermia and shock state. renal consulted for CKD management. she was on inotropes, also IV synthroid. Denies chest pain, palpitation, feels better with shortness of breath, leg swelling Denies blood or bubbles in urine Denies OTC/herbal meds or NSAIDs No recent iodinated contrast exposure.low BP when came in ER ROS: Constitutional Symptoms: Denies fever. No chills. No Recent Weight Changes Eyes: denies change in vision, denies watery eyes, denies double vision Ears/Nose/Mouth/Throat: Denies Abnormal Taste. No Bad breath no Bad Taste. Cardiovascular: No chest pain. No palpitations. Pulmonary: c/o shortness of breath no cough. Gastrointestinal: denies abdominal pain No nausea. No vomiting. Denies change in bowel habits. Denies Bleeding Genitourinary: No Change in force of strain when urinating. No increase in urinary frequency. No pain while urinating. Denies blood in urine. Neurological: Denies headaches. No dizziness. Denies loss of balance. Denies weakness, denies tingling/numbness Dermatological: No Rash or Bruising or ulcers. Psychiatric: Denies Anxiety. No depression. Denies hallucinations. Rheumatological: No joint pain. Denies Joint swelling. c/o leg swelling Endocrine: c/o tiredness/Fatigue denies Heat/Cold Intolerance. All other negative Physical Examination: General Appearance: Comfortable, in no acute respiratory distress, co-operative . Vitals reviewed and noted as below Head; Atraumatic, normocephalic ENT: no ulcers no thrush. Tongue is midline. Oropharynx: no rash or ulcers. EYES: Pupils are equal, round and reactive to light accommodation. Eye muscles and extraocular movement intact. Sclera is anicteric. Neck; supple no lymphadenopathy, no thyromegaly or bruit Lungs: Normal respiratory rate/effort. Breath sounds bilateral decreased at bases with crackles Heart: Normal rate. s1s2 normal. No rub or gallop. Extremities: 1-2+ edema. No varicose veins Neurological: Patient is alert, awake and oriented to person, place and time. No focal deficit. Strength bilateral appropriate and equal Skin: Warm and dry. Normal turgor. No rash. Palpitation: Normal elasticity for age Abdomen: Abdomen is soft. Bowel sounds +. There is no abdominal tenderness, no guarding/rigidity no organomegaly Psych: limited insight and normal affect/mood MSK: no joint tenderness or swelling. Digits and nails normal, no deformity : kidney or bladder not palpable Labs/imaging reviewed. Past medical history, past surgical history, family history, social history, allergy reviewed and noted as below Family hx: no hx of CKD. Rest non-contributory renal sono: unremarkable UA 100 protein Past Patient History - Infectious Disease Hx of Infectious Diseases: None - Past Social History Smoking Status: Never Smoked - CARDIAC Hx Cardiac Disorders: Yes Hx Hypertension: Yes - PULMONARY Hx Respiratory Disorders: No - NEUROLOGICAL Hx Neurological Disorder: No - HEENT Hx HEENT Problems: No - RENAL Hx Chronic Kidney Disease: Yes Hx Renal Failure: Yes - ENDOCRINE/METABOLIC Hx Endocrine Disorders: Yes Hx Diabetes Mellitus Type 2: Yes - HEMATOLOGICAL/ONCOLOGICAL Hx Blood Disorders: No - INTEGUMENTARY Hx Dermatological Problems: No - MUSCULOSKELETAL/RHEUMATOLOGICAL Hx Musculoskeletal Disorders: Yes Hx Arthritis: Yes - GASTROINTESTINAL Hx Gastrointestinal Disorders: No - GENITOURINARY/GYNECOLOGICAL Hx Genitourinary Disorders: No - PSYCHIATRIC Hx Psychophysiologic Disorder: No Hx Substance Use: No - SURGICAL HISTORY Hx Musculoskeletal Surgery: Yes (R ankle) - ANESTHESIA Hx Anesthesia: Yes Hx Anesthesia Reactions: No Meds Allergies/Adverse Reactions: Allergies Allergy/AdvReac Type Severity Reaction Status Date / Time No Known Allergies Allergy Verified 08/03/17 15:33 - Medications Medications: Current Medications Acetaminophen (Tylenol 325mg Tab) 650 mg PO Q6H PRN PRN Reason: Headache Last Admin: 08/03/17 14:50 Dose: 650 mg Ferrous Gluconate (Fergon) 324 mg PO TID [facility] Last Admin: 08/04/17 13:15 Dose: 324 mg Furosemide (Lasix) 20 mg IVP Q12 [facility] Heparin Sodium (Porcine) (Heparin) 5,000 units SC Q12 [facility] PRN Reason: Protocol Last Admin: 08/04/17 10:46 Dose: 5,000 units Hydrocortisone Sodium Succinate (Solu-Cortef) 50 mg IVP Q12 [facility] Cefepime HCl (Maxipime 1gm) 1 gm in 100 mls @ 100 mls/hr IVPB DAILY [facility] PRN Reason: Protocol Last Admin: 08/04/17 10:45 Dose: 100 mls/hr Milrinone Lactate/Dextrose (Primacor 20mg/100ml D5w) 100 mls @ 5.117 mls/hr IV .[id number] PRN; Protocol; 0.2 MCG/KG/MIN PRN Reason: do not titrate Insulin Human Lispro (Humalog Low) 0 units SC ACHS [facility] PRN Reason: Protocol Last Admin: 08/04/17 12:40 Dose: 1 units Levothyroxine Sodium (Synthroid) 50 mcg PO ACB [facility] Pantoprazole Sodium (Protonix Inj) 40 mg IVP DAILY [facility] Last Admin: 08/04/17 10:46 Dose: 40 mg Sevelamer HCl (Renagel) 800 mg PO TID [facility] Last Admin: 08/04/17 13:15 Dose: 800 mg Vitamin B Complex/Vit C/Folic Acid (Nephro-David) 1 tab PO 0800 [facility] Results - Vital Signs Recent Vital Signs: Last Vital Signs Temp 97.4 F L 08/04/17 06:40 Pulse 59 L 08/04/17 12:40 Resp 12 08/04/17 12:40 BP 105/52 L 08/04/17 13:44 Pulse Ox 100 08/04/17 12:40 - Labs Result Diagrams: 08/04/17 06:00 08/04/17 06:00 Labs: Laboratory Results - last 24 hr 08/03/17 08/03/17 08/03/17 13:00 13:00 13:00 WBC RBC Hgb Hct MCV MCH MCHC RDW Plt Count MPV Sodium Potassium Chloride Carbon Dioxide Anion Gap BUN Creatinine Est GFR ( Amer) Est GFR (Non-Af Amer) POC Glucose (mg/dL) Random Glucose Hemoglobin A1c 8.6 H Calcium Phosphorus Magnesium Ferritin 20.9 Total Bilirubin AST ALT Alkaline Phosphatase Total Protein Albumin Globulin Albumin/Globulin Ratio Vitamin B12 835 Folate 16.2 Procalcitonin 0.06 L Free T4 Thyroxine (T4) Free T3 pg/mL 2.40 L TSH 3rd Generation Urine Color Urine Appearance Urine pH Ur Specific [place] Urine Protein Urine Glucose (UA) Urine Ketones Urine Blood Urine Nitrate Urine Bilirubin Urine Urobilinogen Ur Leukocyte Esterase Urine RBC Urine WBC Ur Epithelial Cells Calcium Oxalate Crystal Urine Bacteria Urine Other Ur Random Creatinine 08/03/17 08/03/17 08/04/17 16:34 22:06 06:00 WBC 30.1 H* D RBC 4.61 Hgb 10.2 L Hct 35.1 L MCV 76.1 L MCH 22.1 L MCHC 29.1 L RDW 19.7 H Plt Count 612 H MPV 12.5 H Sodium Potassium Chloride Carbon Dioxide Anion Gap BUN Creatinine Est GFR ( Amer) Est GFR (Non-Af Amer) POC Glucose (mg/dL) 85 105 Random Glucose Hemoglobin A1c Calcium Phosphorus Magnesium Ferritin Total Bilirubin AST ALT Alkaline Phosphatase Total Protein Albumin Globulin Albumin/Globulin Ratio Vitamin B12 Folate Procalcitonin Free T4 Thyroxine (T4) Free T3 pg/mL TSH 3rd Generation Urine Color Urine Appearance Urine pH Ur Specific [place] Urine Protein Urine Glucose (UA) Urine Ketones Urine Blood Urine Nitrate Urine Bilirubin Urine Urobilinogen Ur Leukocyte Esterase Urine RBC Urine WBC Ur Epithelial Cells Calcium Oxalate Crystal Urine Bacteria Urine Other Ur Random Creatinine 08/04/17 08/04/17 08/04/17 06:00 06:00 07:33 WBC RBC Hgb Hct MCV MCH MCHC RDW Plt Count MPV Sodium 142 Potassium 4.8 Chloride 100 Carbon Dioxide 24 Anion Gap 23 H BUN 54 H Creatinine 3.0 H Est GFR ( Amer) 18 Est GFR (Non-Af Amer) 15 POC Glucose (mg/dL) 153 H Random Glucose 149 H Hemoglobin A1c Calcium 9.1 Phosphorus 7.0 H Magnesium 2.2 Ferritin Total Bilirubin 0.8 AST 29 ALT 18 Alkaline Phosphatase 98 Total Protein 7.5 Albumin 3.9 Globulin 3.6 Albumin/Globulin Ratio 1.1 Vitamin B12 Folate Procalcitonin Free T4 1.30 Thyroxine (T4) 6.4 Free T3 pg/mL TSH 3rd Generation 8.38 H Urine Color Urine Appearance Urine pH Ur Specific [place] Urine Protein Urine Glucose (UA) Urine Ketones Urine Blood Urine Nitrate Urine Bilirubin Urine Urobilinogen Ur Leukocyte Esterase Urine RBC Urine WBC Ur Epithelial Cells Calcium Oxalate Crystal Urine Bacteria Urine Other Ur Random Creatinine 08/04/17 08/04/17 08/04/17 11:27 13:30 13:30 WBC RBC Hgb Hct MCV MCH MCHC RDW Plt Count MPV Sodium Potassium Chloride Carbon Dioxide Anion Gap BUN Creatinine Est GFR ( Amer) Est GFR (Non-Af Amer) POC Glucose (mg/dL) 183 H Random Glucose Hemoglobin A1c Calcium Phosphorus Magnesium Ferritin Total Bilirubin AST ALT Alkaline Phosphatase Total Protein Albumin Globulin Albumin/Globulin Ratio Vitamin B12 Folate Procalcitonin Free T4 Thyroxine (T4) Free T3 pg/mL TSH 3rd Generation Urine Color Yellow Urine Appearance Sl cloudy Urine pH 5.0 Ur Specific [place] >= 1.030 Urine Protein 100 H Urine Glucose (UA) Negative Urine Ketones Negative Urine Blood Trace-lysed H Urine Nitrate Negative Urine Bilirubin Small H Urine Urobilinogen 0.2 Ur Leukocyte Esterase Trace H Urine RBC 0 - 2 Urine WBC 1 - 3 Ur Epithelial Cells 3 - 4 Calcium Oxalate Crystal Few Urine Bacteria Few Urine Other Uyeast Ur Random Creatinine 333
--- NOTE | 2017-08-04 19:35 | CARD ---
APPROVED REPORT EXAM: Two-dimensional and M-mode echocardiogram with Doppler and color Doppler. INDICATION Congestive Heart Failure 2D DIMENSIONS Left Atrium (2D)4.7 (1.6-4.0cm)IVSd1.1 (0.7-1.1cm) LVDd3.9 (3.9-5.9cm)PWd1.1 (0.7-1.1cm) LVDs2.5 (2.5-4.0cm)FS (%) 35.5 % LVEF (%)65.6 (>50%) M-Mode DIMENSIONS Aortic Root3.00 (2.2-3.7cm)Aortic Cusp Exc.1.60 (1.5-2.0cm) Aortic Valve AoV Peak Tjbefjbp816.0cm/Melissa Peak GR.11mmHg Mitral Valve MV E Luldtufw45.3cm/sMV A Dlyasctl280.0cm/sE/A ratio0.8 TDI Lateral E' Peak V7.99cm/sMedial E' Peak V6.24cm/sE/Lateral E'11.7 E/Medial E'15.0 Pulmonary Valve PV Peak Sieqaxsj05.0cm/sPV Peak Grad.3mmHg Tricuspid Valve TR Peak Bxevpsuq629ds/sRAP EMZYAFLJ45vzYuCO Peak Gr.55mmHg [id number] LEFT VENTRICLE The left ventricle is normal size. There is normal left ventricular wall thickness. The left ventricular function is normal.EF-55-60% There is normal LV segmental wall motion. Transmitral Doppler flow pattern is Grade III-reversible restrictive diastolic dysfunction. No left ventricle thrombus noted on this study. There is no ventricular septal defect visualized. There is no left ventricular aneurysm. There is no mass noted in the left ventricle. RIGHT VENTRICLE The right ventricle is mildly dilated. There is normal right ventricular wall thickness. The right ventricular systolic function is normal. ATRIA The left atrium is mildly dilated. The right atrium is moderately dilated. The interatrial septum is intact with no evidence for an atrial septal defect. AORTIC VALVE The aortic valve is thickened but opens well. No aortic regurgitation is present. There is no aortic valvular stenosis. There is no aortic valvular vegetation. MITRAL VALVE The mitral valve is thickened but opens well. Mitral regurgitation is mild to moderate. There is no mitral valve stenosis. There is no evidence of mitral valve prolapse. TRICUSPID VALVE The tricuspid valve leaflets are thickened , but open well. There is moderate tricuspid regurgitation.RVSP-65 mmof hg There is moderate pulmonary hypertension. There is no tricuspid valve stenosis. There is no tricuspid valve prolapse or vegetation. PULMONIC VALVE The pulmonic valve is borderline thickened. There is mild to moderate pulmonic valvular regurgitation. There is no pulmonic valvular stenosis. GREAT VESSELS The aortic root is normal in size. The ascending aorta is normal in size. The pulmonary artery is normal. The IVC is normal in size and collapses >50% with inspiration. PERICARDIAL EFFUSION There is large left pleural effusion. There is a trivial pericardial effusion. <Conclusion> The left ventricle is normal size. There is normal left ventricular wall thickness. The left ventricular function is normal.EF-55-60% The right ventricle is mildly dilated. Mitral regurgitation is mild to moderate. There is moderate tricuspid regurgitation.RVSP-65 mmof hg There is moderate pulmonary hypertension. The IVC is normal in size and collapses >50% with inspiration. There is a trivial pericardial effusion. There is large left pleural effusion.
[2017-08-05 07:16] LABS: CREATININE, RANDOM URINE 342 mg/dL (20-320)
[2017-08-05] MEDS: Levothyroxine 50 MCG TAB PO SCH (07:52)
[2017-08-05 07:53] LABS: CHOLESTEROL 114 mg/dL (130-200)
[2017-08-05] MEDS: Milrinone 20mg/100ml D5W 100 ML IV PRN ×2 (08:12→23:45)
--- NOTE | 2017-08-05 08:36 | PN ---
DATE: 08/04/2017 ENDO FOLLOWUP NOTE SUMMARY: This 77-year-old female presenting here with progressive shortness of breath and supervening hypotension, hypothermia, and bradycardia and is now being followed closely for hemodynamic monitor in the ICU as noted. She also has recent onset of hypothyroidism and was given initially parenteral levothyroxine at 100 mcg IV push as ordered yesterday and also got one more dose today as noted. Her glycemic levels are also fluctuating, but improved and latest chemistries showed BUN of 54, sodium of 142, potassium of 4.8, chloride of 100, CO2 of 24, glucose of 149, and creatinine of 3.0. Her glucose levels have ranged from 153 mg/dL to 183 mg/dL. The repeat thyroid study showed T4 of 6.4 with free T4 of 1.3 and TSH of 8.38, so at this time, we will stop and discontinue her parenteral levothyroxine and switch her over to oral levothyroxine given as 50 mcg a.c. breakfast daily to start tomorrow morning as ordered. She has been started on IV steroid therapy with expected hyperglycemic accelerations as noted thereof. We will continue the low-dose correction scale using Humalog insulin as ordered. She also has underlying progressive renal insufficiency with supervening congestive heart failure on admission and is currently receiving cardiac management as noted. We will obtain serial chemistries and serial thyroid studies and adjust her dose regimen accordingly. We will follow with the patient. Jessica Andujar MD
[2017-08-05 09:18] LABS: BASO # 0.01 K/mm3 (0.0-2.0); BASO % 0.1 % (0.0-3.0); GRAN # 12.56 (1.4-6.5); HEMATOCRIT 29.4 % (36.0-48.0); LYMPH # 1.3 (1.2-3.4); MEAN CELL VOLUME 75.8 fl (80.0-105.0); MEAN CORPUSCULAR HEMOGLOBIN 22.2 pg (25.0-35.0); MEAN CORPUSCULAR HGB CONC 29.3 g/dl (31.0-37.0); MEAN PLATELET VOLUME 11.3 fl (7.0-11.0); MONO # 0.6 (0.1-0.6); MONO % 3.9 % (1.0-6.0); RED CELL DISTRIBUTION WIDTH 19.6 % (11.5-14.5); WHITE BLOOD COUNT 14.4 10^3/ul (4.5-11.0)
[2017-08-05 09:31] LABS: CALCIUM 8.3 mg/dL (8.4-10.5); POTASSIUM 4.2 mmol/L (3.6-5.0)
[2017-08-05] MEDS ORDERED: Darbepoetin Alfa 60 mcg/ml Inj SC ONE (09:43)
[2017-08-05] MEDS: Insulin Lispro (humaLOG) LOW Coverage SC SCH ×4 (10:11→21:14)
[2017-08-05] MEDS: Multivitamin Vitamin B Complex (Nephro-Vite) Tab PO SCH (10:11)
--- NOTE | 2017-08-05 11:17 | CP.PCM.PN ---
Subjective - Date & Time of Evaluation Date of Evaluation: 08/05/17 Time of Evaluation: 11:12 - Subjective Subjective: Follow up Nephrology Consultation: Assessment: critical Acute Kidney Injury (N17.9) possibly hemodynamic, cardio-renal, ATN: worsening Fluid overload/dCHF exacerbation, moderate pulmonary HTN Hypothermia, hypothyroidism Diabetic chronic Kidney Disease (E11.22) Hypertensive Chronic Kidney Disease (I12.9) Chronic Kidney Disease (N18.4 ) Stage 4 with 500 mg proteinuria (R80.9) likely due to DM/HTN Anemia (D64.9), Hyperphosphatemia (E83.39), HTN (I12.9) respi acidosis Obesity Plan No acute need for renal replacement therapy at this time . Hypertension control with meds as ordered. Patient not on ACEI/ARB due to KYLAH and low BP Monitor Input/Output, daily weights and renal function with basic metabolic panel continue with low dose lasix 20 mg IV bid. zabala catheter as pt urinary incontinent and to measure I/O started iron supplements, nephrovite and phos binders will also give IV iron and sc aransep checking C3/C4/ANCA Check for 25-OH vitamin D, iPTH, serum protein electrophoresis with immunofixation Dose meds/antibiotics for reduced GFR. Avoid fleets enema/magnesium based laxatives. Avoid nephrotoxins/NSAIDs/ iodinated contrast (unless needed emergently) Glycemic control Further work up/management as per primary team Thanks for allowing me to participate in care of your patient. Will follow patient with you. Please call if any Qs Dr Myles Zhong Office: [phone] Chief Complaint; shortness of breath improved HPI: Pt is a 77 F with hx of diabetes Mellitus ( 35 years), hypertension (many years), CHF, CKD presented with complaints of shortness of breath and found to have hypothermia and shock state. renal consulted for CKD management. she was on inotropes, also IV synthroid. Denies chest pain, palpitation, feels better with shortness of breath, leg swelling low BP when came in ER. has urinary incontinence staff helped in kiswahili interpretation Physical Examination: General Appearance: Comfortable, in no acute respiratory distress, co-operative . Vitals reviewed and noted as below Head; Atraumatic, normocephalic ENT: no ulcers no thrush. Tongue is midline. Oropharynx: no rash or ulcers. EYES: Pupils are equal, round and reactive to light accommodation. Eye muscles and extraocular movement intact. Sclera is anicteric. Neck; supple no lymphadenopathy, no thyromegaly or bruit Lungs: Normal respiratory rate/effort. Breath sounds bilateral decreased at bases with crackles Heart: Normal rate. s1s2 normal. No rub or gallop. Extremities: 1+ edema. No varicose veins Neurological: Patient is alert, awake and oriented to person, place and time. No focal deficit. Strength bilateral appropriate and equal Skin: Warm and dry. Normal turgor. No rash. Palpitation: Normal elasticity for age Abdomen: Abdomen is soft. Bowel sounds +. There is no abdominal tenderness, no guarding/rigidity no organomegaly Psych: limited insight and normal affect/mood MSK: no joint tenderness or swelling. Digits and nails normal, no deformity : kidney or bladder not palpable Labs/imaging reviewed. Past medical history, past surgical history, family history, social history, allergy reviewed and noted as below Family hx: no hx of CKD. Rest non-contributory renal sono: unremarkable UA 100 protein and 500 mg/gr cr on spot quantification echo: normal LVEF, moderate pulm HTN Objective - Vital Signs/Intake and Output Vital Signs (last 24 hours): Temp Pulse Resp BP Pulse Ox 97.5 F L 59 L 20 95/34 L 96 08/05/17 05:16 08/05/17 08:12 08/05/17 05:16 08/05/17 10:07 08/05/17 05:16 Intake and Output: 08/05/17 08/05/17 06:59 18:59 Intake Total 331 100 Balance 331 100 - Medications Medications: Current Medications Acetaminophen (Tylenol 325mg Tab) 650 mg PO Q6H PRN PRN Reason: Headache Last Admin: 08/03/17 14:50 Dose: 650 mg Ferrous Gluconate (Fergon) 324 mg PO TID [facility] Last Admin: 08/05/17 10:11 Dose: 324 mg Furosemide (Lasix) 20 mg IVP Q12 [facility] Last Admin: 08/05/17 10:07 Dose: Not Given Heparin Sodium (Porcine) (Heparin) 5,000 units SC Q12 [facility] PRN Reason: Protocol Last Admin: 08/05/17 10:08 Dose: 5,000 units Hydrocortisone Sodium Succinate (Solu-Cortef) 50 mg IVP DAILY [facility] Cefepime HCl (Maxipime 1gm) 1 gm in 100 mls @ 100 mls/hr IVPB DAILY [facility] PRN Reason: Protocol Last Admin: 08/04/17 10:45 Dose: 100 mls/hr Milrinone Lactate/Dextrose (Primacor 20mg/100ml D5w) 100 mls @ 5.117 mls/hr IV .[id number] PRN; Protocol; 0.2 MCG/KG/MIN PRN Reason: do not titrate Last Admin: 08/05/17 08:12 Dose: 0.2 mcg/kg/min, 5.117 mls/hr Iron Sucrose 100 mg/ Sodium (Chloride) 105 mls @ 210 mls/hr IVPB DAILY [facility] Stop: 08/10/17 10:01 Insulin Detemir (Levemir) 5 unit SC HS [facility] Insulin Human Lispro (Humalog Low) 0 units SC ACHS [facility] PRN Reason: Protocol Last Admin: 08/05/17 10:11 Dose: 4 units Levothyroxine Sodium (Synthroid) 50 mcg PO ACB [facility] Last Admin: 08/05/17 07:52 Dose: 50 mcg Pantoprazole Sodium (Protonix Inj) 40 mg IVP DAILY [facility] Last Admin: 08/05/17 10:11 Dose: 40 mg Sevelamer HCl (Renagel) 800 mg PO TID [facility] Last Admin: 08/05/17 10:11 Dose: 800 mg Vitamin B Complex/Vit C/Folic Acid (Nephro-David) 1 tab PO 0800 [facility] Last Admin: 08/05/17 10:11 Dose: 1 tab - Labs Labs: 08/05/17 09:10 08/05/17 06:20 PT 13.6 SECONDS (9.4-12.5) H 08/03/17 11:44 INR 1.23 (0.93-1.08) H 08/03/17 11:44 APTT 34.3 Seconds (25.1-36.5) 08/03/17 11:44
[2017-08-05] MEDS: Cefepime 1gm in NS 100ml 1 GM/100 ML BAG IVPB SCH (11:20)
--- NOTE | 2017-08-05 15:21 | CP.PCM.PN ---
<Rafita Mckinney - Last Filed: 08/05/17 16:35> Subjective - Date & Time of Evaluation Date of Evaluation: 08/05/17 Time of Evaluation: 07:30 - Subjective Subjective: Rafita Mckinney DO PGY1 - Internal Medicine Progress Note Patient seen and examined at bedside. No events overnight. Nurse reports that during physical therapy session patient has loose bowel movement, and desaturated to 89% on 2LNC. Patient reports dramatic improvement in headache, shortness of breath. She still has some diarrhea. She also reports shortness of breath when lying flat. She denies any chest pain, nausea, vomiting, abdominal pain, dysuria. Objective - Vital Signs/Intake and Output Vital Signs (last 24 hours): Temp Pulse Resp BP Pulse Ox 97.4 F L 64 18 107/43 L 96 08/05/17 12:00 08/05/17 12:00 08/05/17 12:00 08/05/17 12:00 08/05/17 05:16 Intake and Output: 08/05/17 08/05/17 06:59 18:59 Intake Total 331 100 Balance 331 100 - Medications Medications: Current Medications Acetaminophen (Tylenol 325mg Tab) 650 mg PO Q6H PRN PRN Reason: Headache Last Admin: 08/05/17 13:46 Dose: 650 mg Ferrous Gluconate (Fergon) 324 mg PO TID [facility] Last Admin: 08/05/17 13:49 Dose: 324 mg Furosemide (Lasix) 20 mg IVP Q12 [facility] Last Admin: 08/05/17 10:07 Dose: Not Given Heparin Sodium (Porcine) (Heparin) 5,000 units SC Q12 [facility] PRN Reason: Protocol Last Admin: 08/05/17 10:08 Dose: 5,000 units Hydrocortisone Sodium Succinate (Solu-Cortef) 50 mg IVP DAILY [facility] Cefepime HCl (Maxipime 1gm) 1 gm in 100 mls @ 100 mls/hr IVPB DAILY [facility] PRN Reason: Protocol Last Admin: 08/05/17 11:20 Dose: 100 mls/hr Milrinone Lactate/Dextrose (Primacor 20mg/100ml D5w) 100 mls @ 5.117 mls/hr IV .[id number] PRN; Protocol; 0.2 MCG/KG/MIN PRN Reason: do not titrate Last Admin: 08/05/17 08:12 Dose: 0.2 mcg/kg/min, 5.117 mls/hr Iron Sucrose 100 mg/ Sodium (Chloride) 105 mls @ 210 mls/hr IVPB DAILY [facility] Stop: 08/10/17 10:01 Last Admin: 08/05/17 13:45 Dose: 210 mls/hr Metronidazole (Flagyl) 500 mg in 100 mls @ 100 mls/hr IVPB Q8 [facility] PRN Reason: Protocol Insulin Detemir (Levemir) 14 unit SC HS [facility] Insulin Human Lispro (Humalog Low) 0 units SC ACHS [facility] PRN Reason: Protocol Last Admin: 08/05/17 13:46 Dose: 3 units Insulin Human Lispro (Humalog) 6 units SC AC [facility] Levothyroxine Sodium (Synthroid) 50 mcg PO ACB [facility] Last Admin: 08/05/17 07:52 Dose: 50 mcg Pantoprazole Sodium (Protonix Ec Tab) 40 mg PO DAILY [facility] Sevelamer HCl (Renagel) 800 mg PO TID [facility] Last Admin: 08/05/17 13:49 Dose: 800 mg Vitamin B Complex/Vit C/Folic Acid (Nephro-David) 1 tab PO 0800 [facility] Last Admin: 08/05/17 10:11 Dose: 1 tab - Labs Labs: 08/05/17 09:10 08/05/17 06:20 PT 13.6 SECONDS (9.4-12.5) H 08/03/17 11:44 INR 1.23 (0.93-1.08) H 08/03/17 11:44 APTT 34.3 Seconds (25.1-36.5) 08/03/17 11:44 - Constitutional Appears: Non-toxic, No Acute Distress, Chronically Ill - Head Exam Head Exam: ATRAUMATIC, NORMOCEPHALIC - Eye Exam Eye Exam: EOMI, Normal appearance. absent: Scleral icterus - ENT Exam ENT Exam: Mucous Membranes Moist - Neck Exam Neck Exam: Normal Inspection - Respiratory Exam Respiratory Exam: Rales (Diffuse, decreased ) Assessment and Plan - Assessment and Plan (Free Text) Assessment: 77 yo F with PMH of HTN, IDDM, CHF, CKD presents to ER with hypoglycemia, lethargy; noted to be hypothermic, bradycardic and in shock. Clinically improving, though with large pleural effusion noted on echo Plan 1. Shock; septic vs cardiogenic - Patient presented hypothermic, bradycardic, hypotensive, hypoxic on RA, and hypoglycemic; now resolved - Hypothermia resolved, leukocytosis improving - UA significant for trace LE, few bacteria, and yeast; UCx pending, BCx negative after 2 days; procal low - Continue broad spectrum antibiotics pending UCx - Patient admits to diarrhea, and did recently complete a course of Abx for UTI; Stool positive for C diff antigen, negative for toxin, will add flagyl and repeat stool studies - Taper stress dose steroids; Solucortef 50mg IV daily today, then decreased dose tomorrow - Initial ABG showed hypoxia, hypercarbia, and acute respiratory acidosis; patient had an episode of desaturation today during PT session; likely 2/2 pulmonary edema vs pleural effusion - Echo done, significant for normal LVEF (65%), grade three diastolic dysfunction, and large left pleural effusion - Patient remains on milrinone drip per cardio - Continue Lasix 40mg IV BID per cardio - TSH and T4/FT4 improved yesterday; continue PO levothyroxine as below, per endo - D-dimer elevated; LE dopplers negative for DVT; unlikely PE - Cardio on consult, appreciate recs 2. Hypothyroidism - Patient does not have prior diagnosis of hypothyroidism. Thyroid studies indicate primary hypothyroidism. - IV synthroid stopped by Dr. Andujar, started PO levothyroxine 50mcg daily - Endocrinology on consult, appreciate recs 3. IDDM - Patient presented with hypoglycemia, now resolved - Blood glucose has been markedly elevated; likely 2/2 steroid therapy - Started SSI Low yesterday - Will start low dose basal insulin tonight; levimir 5u HS - Accucheck ACHS - HbA1c 8.6 - Continue to monitor and titrate basal insulin as indicated 4. h/o HTN - Continue to hold all antihypertensives at this time, patient remains borderline hypotensive, though stable MAP - Patient now off dopamine; remains on milrinone per cardio - Continue to monitor 5. h/o CHF - CXR significant for pulmonary vascular congestion, with elevated BNP - Echo significant for normal LVEF, reversible grade III diastolic dysfunction, and large left pleural effusion - Patient's shock state resolved, continue to hold IVF and monitor - Continue Lasix as above - Patient remains on milrinone drip, as above - Hold BB, ACEi in state of persistent borderline bradycardia and hypotension - Daily weight - Strict I&O 6. Pleural effusion - Patient has large pleural effusion noted on echocardiogram - Requested IR consult for diagnostic/therapeutic thoracentesis - Repeat CXR tomorrow to reevaluate status 7. KYLAH on CKD stage V - No baseline labs to compare; renal function continues to worsen - No renal replacement therapy indicated at this time, per nephro; workup pending - Monitor I&O - Renal US unremarkable - Nephro on consult, appreciate recs 8. Anemia - Likely 2/2 CKD vs chronic disease vs iron deficiency vs mixed etiology - Hgb dropped by 1.6 point; started IV iron and PO iron per nephro - B12 and folate WNL - Iron studies show likely iron deficiency - FOBT pending - Continue to monitor GI/DVT Ppx - Protonix and Heparin Patient seen, discussed, and reviewed with attending <Flavia Berry - Last Filed: 08/05/17 17:33> Objective - Vital Signs/Intake and Output Vital Signs (last 24 hours): Temp Pulse Resp BP Pulse Ox 97.4 F L 64 18 107/43 L 96 08/05/17 12:00 08/05/17 12:00 08/05/17 12:00 08/05/17 12:00 08/05/17 05:16 Intake and Output: 08/05/17 08/05/17 06:59 18:59 Intake Total 331 100 Balance 331 100 - Medications Medications: Current Medications Acetaminophen (Tylenol 325mg Tab) 650 mg PO Q6H PRN PRN Reason: Headache Last Admin: 08/05/17 13:46 Dose: 650 mg Ergocalciferol (Drisdol 50,000 Intl Units Cap) 1 cap PO WED [facility] Ferrous Gluconate (Fergon) 324 mg PO TID [facility] Last Admin: 08/05/17 13:49 Dose: 324 mg Furosemide (Lasix) 20 mg IVP Q12 [facility] Last Admin: 08/05/17 10:07 Dose: Not Given Heparin Sodium (Porcine) (Heparin) 5,000 units SC Q12 [facility] PRN Reason: Protocol Last Admin: 08/05/17 10:08 Dose: 5,000 units Hydrocortisone Sodium Succinate (Solu-Cortef) 50 mg IVP DAILY [facility] Cefepime HCl (Maxipime 1gm) 1 gm in 100 mls @ 100 mls/hr IVPB DAILY [facility] PRN Reason: Protocol Last Admin: 08/05/17 11:20 Dose: 100 mls/hr Milrinone Lactate/Dextrose (Primacor 20mg/100ml D5w) 100 mls @ 5.117 mls/hr IV .[id number] PRN; Protocol; 0.2 MCG/KG/MIN PRN Reason: do not titrate Last Admin: 08/05/17 08:12 Dose: 0.2 mcg/kg/min, 5.117 mls/hr Iron Sucrose 100 mg/ Sodium (Chloride) 105 mls @ 210 mls/hr IVPB DAILY [facility] Stop: 08/10/17 10:01 Last Admin: 08/05/17 13:45 Dose: 210 mls/hr Metronidazole (Flagyl) 500 mg in 100 mls @ 100 mls/hr IVPB Q8 [facility] PRN Reason: Protocol Insulin Detemir (Levemir) 14 unit SC HS [facility] Insulin Human Lispro (Humalog) 6 units SC AC [facility] Insulin Human Lispro (Humalog Low) 0 units SC ACHS [facility] PRN Reason: Protocol Levothyroxine Sodium (Synthroid) 50 mcg PO ACB [facility] Last Admin: 08/05/17 07:52 Dose: 50 mcg Pantoprazole Sodium (Protonix Ec Tab) 40 mg PO DAILY [facility] Sevelamer HCl (Renagel) 800 mg PO TID [facility] Last Admin: 08/05/17 13:49 Dose: 800 mg Vitamin B Complex/Vit C/Folic Acid (Nephro-David) 1 tab PO 0800 [facility] Last Admin: 08/05/17 10:11 Dose: 1 tab - Labs Labs: 08/05/17 09:10 08/05/17 06:20 PT 13.6 SECONDS (9.4-12.5) H 08/03/17 11:44 INR 1.23 (0.93-1.08) H 08/03/17 11:44 APTT 34.3 Seconds (25.1-36.5) 08/03/17 11:44 - Respiratory Exam Respiratory Exam: Decreased Breath Sounds (at bases) - Cardiovascular Exam Cardiovascular Exam: REGULAR RHYTHM, +S1, +S2 - GI/Abdominal Exam GI & Abdominal Exam: Soft, Normal Bowel Sounds. absent: Tenderness, Organomegaly - Extremities Exam Additional comments: LE edema improving - Neurological Exam Neurological Exam: Alert, Awake, Oriented x3 - Psychiatric Exam Psychiatric exam: Normal Affect, Normal Mood Attending/Attestation - Attestation I have personally seen and examined this patient.: Yes I have fully participated in the care of the patient.: Yes I have reviewed all pertinent clinical information, including history, physical exam and plan: Yes Notes (Text): 08/05/17 17:28 77 year old female with past medical history of hypertension, diabetes and CKD who presented with altered mental status. She was found to have significant hypoglycemia, hypothermia, bradycardia and hypotension which have now resolved. CXR showed pulmonary vascular congestion consistent with CHF. Echocardiogram shows diastolic dysfunction and pleural effusion. She is on iv lasix bid. Cardiology is following the patient. IR evaluation is requested to evaluate for possible thoracocentesis. Leukocytosis is improving. Cultures are negative to date. She is on tapering iv steroids and cefepime. She continues to complain of loose stools. Stool for c dif antigen was positive. Will repeat and start on flagyl for now. Will resume levemir for tonight for hyperglycemia and continue with insulin ss. She is on synthroid for hypothyroidism. Endocrinology is following. Nephrology is following for acute on chronic kidney disease. Renal sonogram was negative. Anemia workup was reviewed and she was started on iron by nephrology. Recommended outpatient GI workup for iron deficiency anemia. D-dimer was elevated however LE doppler was negative for DVT. Flavia Berry MD Hospitalist.
[2017-08-05] MEDS: Ergocalciferol 50,000 Intl Units Cap PO SCH (18:16)
[2017-08-05] MEDS: Insulin Lispro 1 UNITS/0.01 ML SC SCH (18:16)
--- NOTE | 2017-08-05 18:47 | PN ---
DATE: ENDOCRINOLOGY FOLLOWUP NOTE LOCATION: Room 275. SUBJECTIVE: This is a 77-year-old female presenting here with congestive heart failure and marked hypotension, bradycardia, and hypothermia, and was also evaluated to have early hypothyroidism as noted thereof. She has been started on IV steroid therapy, which is being tapered down at this time with ongoing cardiac management as noted. Her latest glucose values are fluctuating, ranging from 266 to 277 mg/dL. Her latest chemistry showed a BUN of 68, sodium 138, potassium 4.2, chloride 100, CO2 of 20, glucose 300, and creatinine 3.8. So at this time, we will continue the low dose correction scale using Humalog insulin as given. We also modify the Levemir given at a higher dose to 14 units subcutaneously at bedtime daily to start tonight. We will titrate incremental as indicated to optimize metabolic control. We will also be adding Humalog given as 6 units subcutaneously t.i.d. before meals as ordered. We will continue the levothyroxine given at a modified and smaller dose of 50 mcg once daily in the morning as ordered. We will obtain serial chemistries and supplement accordingly as needed. We will follow with you. Jessica Andujar MD
--- NOTE | 2017-08-05 20:14 | PN ---
DATE: 08/05/2017 REASON FOR CONSULTATION AND FOLLOWUP: Cardiac evaluation, rule out CHF, admitted with hypoglycemia, altered mental status, and acute coronary artery disease, details are unknown. SUBJECTIVE: The patient denies any chest pain, shortness of breath, or any palpitation. Feels a lot better. On IV Primacor. PHYSICAL EXAMINATION: VITAL SIGNS: As follows; temperature afebrile, heart rate 64, and blood pressure 107/43. HEENT: PERRLA. Extraocular muscles intact. NECK: Supple. No carotid bruits or thyromegaly. CHEST: Clear to auscultation. HEART: S1 and S2 regular. ABDOMEN: Soft. EXTREMITIES: Clubbing and cyanosis negative. LABORATORY DATA: Blood workup as follows; WBC 14.4, hemoglobin 8.6, hematocrit 29.4, and platelet count 522. Chemistry shows sodium 130, potassium 4.0, chloride 100, carbon dioxide 20, anion gap of 22, BUN 68, and creatinine 3.3. Echo showed ejection fraction 55% to 60%, mildly dilated right ventricle, [id number] mitral regurgitation, moderate tricuspid regurgitation, RV systolic pressure of 65, and large left pleural effusion noted. IMPRESSION AND PLAN: We will cut down the Lasix because of the worsening renal insufficiency. Continue Primacor for pulmonary hypertension as well as worsening renal insufficiency more diuresis. Continue deep venous thrombosis prophylaxis. We will try to get daughter to get more information. Continue broad-spectrum antibiotics. Discussed with the team taking care of the patient and suggested for therapeutic and diagnostic thoracentesis with large pleural effusion. We will also improve the patient's oxygenation. For now, we will hold Lasix and restart from the morning. We will repeat the chest x-ray as yesterday's chest x-ray revealed poor inspiratory effort and congested and blunting of the both angles consistent with pleural effusion as well. We will repeat the chest x-ray. If still WBC remains elevated, we will consider CAT scan of the chest. We will get the PA and lateral tomorrow and hold the Lasix for now and start p.o. Lasix from tomorrow. The patient has a baseline renal insufficiency, admitting creatinine 2.5. This is the first admission. We do not have the previous lab or result available. We will try to get in touch with family to get more information. We will follow with you. Amanda Matthews MD
[2017-08-05] MEDS ORDERED: Insulin Detemir 100 units/ml Vial (Levemir) SC SCH ×2 (22:00)
[2017-08-05] MEDS: metroNIDAZOLE IV 500 mg/100 ml 500 MG/100 ML BAG IVPB SCH (22:27)
[2017-08-06 05:28] LABS: TOTAL PROTEIN, SERUM 6.2 g/dL (6.1-8.1)
[2017-08-06] MEDS: metroNIDAZOLE IV 500 mg/100 ml 500 MG/100 ML BAG IVPB SCH ×2 (05:52→13:18)
[2017-08-06 06:55] LABS: HEMATOCRIT 28.7 % (36.0-48.0); MEAN CELL VOLUME 74.4 fl (80.0-105.0); MEAN CORPUSCULAR HGB CONC 29.6 g/dl (31.0-37.0); MEAN PLATELET VOLUME 12.1 fl (7.0-11.0); RED CELL DISTRIBUTION WIDTH 19.6 % (11.5-14.5); WHITE BLOOD COUNT 12.1 10^3/ul (4.5-11.0)
[2017-08-06 07:22] LABS: CALCIUM 8.4 mg/dL (8.4-10.5); POTASSIUM 3.3 mmol/L (3.6-5.0)
[2017-08-06] MEDS: Levothyroxine 50 MCG TAB PO SCH (07:49)
[2017-08-06] MEDS: Multivitamin Vitamin B Complex (Nephro-Vite) Tab PO SCH (08:05)
[2017-08-06] MEDS: Insulin Lispro (humaLOG) LOW Coverage SC SCH ×4 (08:32→21:21)
[2017-08-06] MEDS ORDERED: Potassium Chloride 20 mEq ER Tab PO STA (10:24)
[2017-08-06] MEDS: Insulin Lispro 1 UNITS/0.01 ML SC SCH ×2 (10:48→18:19)
[2017-08-06] MEDS: Pantoprazole 40 mg EC Tab PO SCH (10:51)
--- NOTE | 2017-08-06 12:01 | PN ---
DATE: 08/06/2017 REASON FOR CONSULTATION AND FOLLOWUP: Rule out congestive heart failure, admitted with hypoglycemia, altered mental status and history of coronary artery disease, details unknown. SUBJECTIVE: The patient denies any chest pain, shortness of breath, or any palpitations. PHYSICAL EXAMINATION VITAL SIGNS: Temperature is afebrile, heart rate is 62, and blood pressure is 118/46. HEENT: PERRLA intact. NECK: Supple. No carotid bruits or thyromegaly. CHEST: Clear to auscultation. HEART: S1 and S2 regular. ABDOMEN: Soft. EXTREMITIES: Clubbing and cyanosis negative. LABORATORY DATA: WBC of 12.9, hemoglobin of 8.5, hematocrit of 28.7, and platelet count of 557. Chemistry shows sodium of 130, potassium of 3.3, chloride of 99, bicarbonate of 26, anion gap of 17, BUN of 74, and creatinine of 4.4. IMPRESSION: Chronic renal insufficiency, acute kidney disease on chronic renal insufficiency, and the patient came in with creatinine of 2.5. Pulmonary hypertension and most recent echocardiography day before yesterday shows preserved left ventricular function, ejection fraction of 55% to 60%, mild to moderate mitral regurgitation, moderate tricuspid regurgitation and left ventricular systolic pressure of 65. Renal insufficiency. It is mentioned in the chart that the patient's coronary artery disease details unknown, I tried to reach the daughter, unable to get so far the information, the patient does not speak Canadian. RECOMMENDATIONS: We will cut down the Lasix and monitor renal function closely. We will continue for 24 hours Primacor if the patient is comfortable. If renal function is stabilized, the patient may be discharged home. The patient has a large left pleural effusion on echocardiography. We will repeat chest x-ray PA and lateral. Awaiting for chest x-ray to be completed. Consider thoracentesis for diagnostic therapeutic and continue antibiotic. Repeat the blood workup in the morning. We will cut down the Lasix and discontinue IV Lasix and change to p.o. Because of pulmonary hypertension and the patient's right heart failure. Left heart remains stable with preserved LV function. We will follow with you. Thank you Dr. Berry for providing us the opportunity in taking care of Danielle Renner. Amanda Matthews MD
[2017-08-06 12:11] LABS: BETA 1 GLOBULIN 0.4 g/dL (0.4-0.6); BETA 2 GLOBULIN 0.4 g/dL (0.2-0.5); GAMMA GLOBULIN 1.3 g/dL (0.8-1.7)
--- NOTE | 2017-08-06 15:17 | PN ---
DATE: ENDOCRINOLOGY FOLLOWUP NOTE LOCATION: In room 275. SUBJECTIVE: This is a 77-year-old female presenting here with congestive heart failure and concomitant marked bradycardia, hypotension and hypothermia and since then improved clinically and hemodynamically as noted. Her glycemic levels are fluctuating, but improved and latest glucose values have ranged from 242 to 285 mg/dl. Her latest chemistry shows a BUN of 74, sodium 139, potassium 3.3, chloride 99, CO2 of 26, glucose 168 and creatinine 4.4. PLAN: As hyperglycemic levels have supervened as noted, we will titrate her basal and bolus insulin regimen to a much higher dosing and increase the Humalog to 10 units subcu t.i.d. before meals as ordered. We also increased her Levemir to 20 units subcu at bedtime daily, will start tonight. We will titrate incremental as indicated to optimize metabolic control. We will follow with you. Jessica Andujar MD
--- NOTE | 2017-08-06 15:18 | CP.PCM.PN ---
<HankEugeneelio - Last Filed: 08/06/17 15:12> Subjective - Date & Time of Evaluation Date of Evaluation: 08/06/17 Time of Evaluation: 07:30 - Subjective Subjective: Rafita Mckinney DO PGY1 - Internal Medicine Progress Note Patient seen and examined at bedside. No events overnight. Patient reports feeling better overall, though still having diarrhea, and is not producing any urine. She still reports some orthopnea, and is seen sitting nearly upright in bed. She otherwise denies shortness of breath, chest pain, palpitations, abdominal pain, nausea, vomiting, dysuria. Objective - Vital Signs/Intake and Output Vital Signs (last 24 hours): Temp Pulse Resp BP Pulse Ox 97.1 F L 66 19 120/53 L 92 L 08/06/17 12:00 08/06/17 12:00 08/06/17 12:00 08/06/17 12:00 08/06/17 06:00 Intake and Output: 08/06/17 08/06/17 06:59 18:59 Intake Total 280 Output Total 0 Balance 280 - Medications Medications: Current Medications Acetaminophen (Tylenol 325mg Tab) 650 mg PO Q6H PRN PRN Reason: Headache Last Admin: 08/05/17 13:46 Dose: 650 mg Ergocalciferol (Drisdol 50,000 Intl Units Cap) 1 cap PO WED [facility] Last Admin: 08/05/17 18:16 Dose: 1 cap Ferrous Gluconate (Fergon) 324 mg PO TID [facility] Last Admin: 08/06/17 14:30 Dose: 324 mg Furosemide (Lasix) 40 mg PO DAILY [facility] Last Admin: 08/06/17 10:51 Dose: 40 mg Heparin Sodium (Porcine) (Heparin) 5,000 units SC Q12 [facility] PRN Reason: Protocol Last Admin: 08/06/17 10:52 Dose: 5,000 units Milrinone Lactate/Dextrose (Primacor 20mg/100ml D5w) 100 mls @ 5.117 mls/hr IV .[id number] PRN; Protocol; 0.2 MCG/KG/MIN PRN Reason: do not titrate Last Admin: 08/05/17 23:45 Dose: 0.2 mcg/kg/min, 5.117 mls/hr Iron Sucrose 100 mg/ Sodium (Chloride) 105 mls @ 210 mls/hr IVPB DAILY [facility] Stop: 08/10/17 10:01 Last Admin: 08/06/17 13:17 Dose: 210 mls/hr Ceftriaxone Sodium 1 gm/ (Sodium Chloride) 100 mls @ 100 mls/hr IVPB DAILY [facility] PRN Reason: Protocol Last Admin: 08/06/17 11:48 Dose: 100 mls/hr Insulin Detemir (Levemir) 20 unit SC HS [facility] Insulin Human Lispro (Humalog Low) 0 units SC ACHS [facility] PRN Reason: Protocol Last Admin: 08/06/17 11:57 Dose: Not Given Insulin Human Lispro (Humalog) 10 units SC AC [facility] Levothyroxine Sodium (Synthroid) 50 mcg PO ACB [facility] Last Admin: 08/06/17 07:49 Dose: 50 mcg Pantoprazole Sodium (Protonix Ec Tab) 40 mg PO DAILY [facility] Last Admin: 08/06/17 10:51 Dose: 40 mg Sevelamer HCl (Renagel) 800 mg PO WM [facility] Last Admin: 08/06/17 14:30 Dose: 800 mg Vitamin B Complex/Vit C/Folic Acid (Nephro-David) 1 tab PO 0800 [facility] Last Admin: 08/06/17 08:05 Dose: 1 tab - Labs Labs: 08/06/17 06:00 08/06/17 06:00 PT 13.6 SECONDS (9.4-12.5) H 08/03/17 11:44 INR 1.23 (0.93-1.08) H 08/03/17 11:44 APTT 34.3 Seconds (25.1-36.5) 08/03/17 11:44 - Constitutional Appears: Non-toxic, No Acute Distress, Chronically Ill - Head Exam Head Exam: ATRAUMATIC, NORMOCEPHALIC - Eye Exam Eye Exam: EOMI, Normal appearance, Periorbital swelling (minimal), PERRL. absent: Scleral icterus - ENT Exam ENT Exam: Mucous Membranes Moist - Respiratory Exam Respiratory Exam: Decreased Breath Sounds (Diffusely, L worse than R), Rales ( Especially in RUL where lung sounds are more audible), NORMAL BREATHING PATTERN - Cardiovascular Exam Cardiovascular Exam: RRR, +S1, +S2 - GI/Abdominal Exam GI & Abdominal Exam: Soft, Normal Bowel Sounds. absent: Tenderness, Rebound - Extremities Exam Extremities Exam: Pedal Edema (2+ to knees). absent: Calf Tenderness - Neurological Exam Neurological Exam: Alert, Awake, Oriented x3 - Psychiatric Exam Psychiatric exam: Normal Affect, Normal Mood - Skin Skin Exam: Dry, Intact Assessment and Plan - Assessment and Plan (Free Text) Assessment: 77 yo F with PMH of HTN, IDDM, CHF, CKD presents to ER with hypoglycemia, lethargy; noted to be hypothermic, bradycardic and in shock. Clinically improving, though with large pleural effusion noted on echo; now severely oliguric Plan 1. Shock; septic vs cardiogenic - Patient presented hypothermic, bradycardic, hypotensive, hypoxic on RA, and hypoglycemic; now resolved - Hypothermia resolved, leukocytosis improving - UA significant for trace LE, few bacteria, and yeast; UCx significant for E coli, BCx negative after 2 days; procal low - Will downgrade from cefepime to ceftriaxone - Patient continues to have diarrhea. Repeat stool studies negative. Continue flagyl treatment, but swich to PO and she remains symptomatic. Continue contact isolation. - Taper stress dose steroids; Solucortef 25mg IV daily today, then off tomorrow - Initial ABG showed hypoxia, hypercarbia, and acute respiratory acidosis; Patient saturating well on 2LNC - Echo done, significant for normal LVEF (65%), grade three diastolic dysfunction, and large left pleural effusion - Consulted IR for thoracentesis as below - Patient remains on milrinone drip per cardio - Continue Lasix 40mg PO daily per cardio, as below - TSH and T4/FT4 improved yesterday; continue PO levothyroxine as below, per endo - D-dimer elevated; LE dopplers negative for DVT; unlikely PE - Cardio on consult, appreciate recs 2. Left pleural effusion - Patient had large left pleural effusion noted on Echocardiogram - Repeat CXR pending - Consulted IR for US and diagnostic/therapeutic thoracentesis 3. Hypothyroidism - Patient does not have prior diagnosis of hypothyroidism. Thyroid studies indicate primary hypothyroidism. - Continue PO levothyroxine 50mcg daily - Endocrinology on consult, appreciate recs 4. IDDM - Patient presented with hypoglycemia, now resolved - Blood glucose has been markedly elevated; likely 2/2 steroid therapy as well as history of diabetes - Continue SSI low - Insulin regimen adjusted by Dr. Andujar; Levemir 14u HS and Humalog 6u AC - Accucheck ACHS - HbA1c 8.6 - Continue to monitor and titrate basal insulin as indicated 5. h/o HTN - Continue to hold all antihypertensives at this time, patient remains borderline hypotensive, though stable MAP - Patient now off dopamine; remains on milrinone per cardio - Continue to monitor 6. h/o CHF - CXR significant for pulmonary vascular congestion, with elevated BNP - Echo significant for normal LVEF, reversible grade III diastolic dysfunction, and large left pleural effusion - Patient's shock state resolved, continue to hold IVF and monitor - Lasix decreased to 40mg PO daily in setting of worsening renal failure and anuria - Patient remains on milrinone drip, as above - Hold BB, ACEi in state of persistent borderline bradycardia and hypotension - Daily weight - Strict I&O 7. KYLAH on CKD stage V - No baseline labs to compare; renal function continues to worsen, patient is now anuric - No renal replacement therapy indicated at this time, per nephro; workup pending - Monitor I&O - Renal US unremarkable - Nephro on consult, appreciate recs 8. Anemia - Likely 2/2 CKD vs chronic disease vs iron deficiency vs mixed etiology - H&H stable; continue IV iron and PO iron per nephro - B12 and folate WNL - Iron studies show likely iron deficiency - FOBT pending - Continue to monitor GI/DVT Ppx - Protonix and Heparin Patient seen, discussed, and reviewed with attending <Flavia Berry - Last Filed: 08/06/17 16:18> Objective - Vital Signs/Intake and Output Vital Signs (last 24 hours): Temp Pulse Resp BP Pulse Ox 97.1 F L 66 19 120/53 L 92 L 08/06/17 12:00 08/06/17 12:00 08/06/17 12:00 08/06/17 12:00 08/06/17 06:00 Intake and Output: 08/06/17 08/06/17 06:59 18:59 Intake Total 280 Output Total 0 Balance 280 - Medications Medications: Current Medications Acetaminophen (Tylenol 325mg Tab) 650 mg PO Q6H PRN PRN Reason: Headache Last Admin: 08/05/17 13:46 Dose: 650 mg Ergocalciferol (Drisdol 50,000 Intl Units Cap) 1 cap PO WED [facility] Last Admin: 08/05/17 18:16 Dose: 1 cap Ferrous Gluconate (Fergon) 324 mg PO TID [facility] Last Admin: 08/06/17 14:30 Dose: 324 mg Furosemide (Lasix) 40 mg PO DAILY [facility] Last Admin: 08/06/17 10:51 Dose: 40 mg Heparin Sodium (Porcine) (Heparin) 5,000 units SC Q12 [facility] PRN Reason: Protocol Last Admin: 08/06/17 10:52 Dose: 5,000 units Milrinone Lactate/Dextrose (Primacor 20mg/100ml D5w) 100 mls @ 5.117 mls/hr IV .[id number] PRN; Protocol; 0.2 MCG/KG/MIN PRN Reason: do not titrate Last Admin: 08/05/17 23:45 Dose: 0.2 mcg/kg/min, 5.117 mls/hr Iron Sucrose 100 mg/ Sodium (Chloride) 105 mls @ 210 mls/hr IVPB DAILY [facility] Stop: 08/10/17 10:01 Last Admin: 08/06/17 13:17 Dose: 210 mls/hr Ceftriaxone Sodium 1 gm/ (Sodium Chloride) 100 mls @ 100 mls/hr IVPB DAILY [facility] PRN Reason: Protocol Last Admin: 08/06/17 11:48 Dose: 100 mls/hr Insulin Detemir (Levemir) 20 unit SC HS [facility] Insulin Human Lispro (Humalog Low) 0 units SC ACHS [facility] PRN Reason: Protocol Last Admin: 08/06/17 11:57 Dose: Not Given Insulin Human Lispro (Humalog) 10 units SC AC [facility] Levothyroxine Sodium (Synthroid) 50 mcg PO ACB [facility] Last Admin: 08/06/17 07:49 Dose: 50 mcg Metronidazole (Flagyl) 500 mg PO Q8 [facility] PRN Reason: Protocol Pantoprazole Sodium (Protonix Ec Tab) 40 mg PO DAILY [facility] Last Admin: 08/06/17 10:51 Dose: 40 mg Sevelamer HCl (Renagel) 800 mg PO WM [facility] Last Admin: 08/06/17 14:30 Dose: 800 mg Vitamin B Complex/Vit C/Folic Acid (Nephro-David) 1 tab PO 0800 [facility] Last Admin: 08/06/17 08:05 Dose: 1 tab - Labs Labs: 08/06/17 06:00 08/06/17 06:00 PT 13.6 SECONDS (9.4-12.5) H 08/03/17 11:44 INR 1.23 (0.93-1.08) H 08/03/17 11:44 APTT 34.3 Seconds (25.1-36.5) 08/03/17 11:44 Attending/Attestation - Attestation I have personally seen and examined this patient.: Yes I have fully participated in the care of the patient.: Yes I have reviewed all pertinent clinical information, including history, physical exam and plan: Yes Notes (Text): 08/06/17 16:15 77 year old female with past medical history of hypertension, diabetes and CKD who presented with altered mental status. She was found to have significant hypoglycemia, hypothermia, bradycardia and hypotension which have now resolved. CXR showed pulmonary vascular congestion consistent with CHF. Echocardiogram shows diastolic dysfunction and pleural effusion. She is being followed by cardiology. She is on po lasix. IR evaluation was requested for thoracocentesis possibly today. Her renal function continues to worsen. Case was discussed with nephrology today; will monitor. If continues to increase consider dialysis. She is on ceftriaxone for UTI and flagyl for C Dif diarrhea. She is on insulin ss and levemir for diabetes and synthroid for hypothyroidism. Anemia workup was reviewed and she was started on iron by nephrology. Recommended outpatient GI workup for iron deficiency anemia. Flavia Berry MD Hospitalist.
--- NOTE | 2017-08-06 15:44 | CP.PCM.PN ---
Subjective - Date & Time of Evaluation Date of Evaluation: 08/06/17 Time of Evaluation: 15:42 - Subjective Subjective: Follow up Nephrology Consultation: Assessment: critical Acute Kidney Injury (N17.9) possibly hemodynamic, cardio-renal, likely ATN: worsening, anuric now Fluid overload/dCHF exacerbation, moderate pulmonary HTN Hypothermia, hypothyroidism Diabetic chronic Kidney Disease (E11.22) Hypertensive Chronic Kidney Disease (I12.9) Chronic Kidney Disease (N18.4 ) Stage 4 with 500 mg proteinuria (R80.9) likely due to DM/HTN Anemia (D64.9), Hyperphosphatemia (E83.39), HTN (I12.9), vit d def with sec hyperparathyroidism respi acidosis Obesity Plan No acute need for renal replacement therapy at this time but will likely need if spontanoeus renal recovery soon. called and d/w daughter [phone]. Hypertension control with meds as ordered. Patient not on ACEI/ARB due to KYLAH and low BP Monitor Input/Output, daily weights and renal function with basic metabolic panel started iron supplements, nephrovite and phos binders, Vit D weekly will also give IV iron and sc aransep checking ANCA serum protein electrophoresis with immunofixation Dose meds/antibiotics for reduced GFR <10. Avoid fleets enema/magnesium based laxatives. Avoid nephrotoxins/NSAIDs/ iodinated contrast (unless needed emergently) Glycemic control Further work up/management as per primary team Thanks for allowing me to participate in care of your patient. Will follow patient with you. Please call if any Qs Dr Myles Zhong Office: [phone] Chief Complaint; none today HPI: Pt is a 77 F with hx of diabetes Mellitus ( 35 years), hypertension (many years), CHF, CKD presented with complaints of shortness of breath and found to have hypothermia and shock state. renal consulted for CKD management. she was on inotropes, also IV synthroid. Denies chest pain, palpitation, feels better with shortness of breath, leg swelling low BP when came in ER. staff helped in occitan interpretation Physical Examination: General Appearance: Comfortable, in no acute respiratory distress, co-operative . Vitals reviewed and noted as below Head; Atraumatic, normocephalic ENT: no ulcers no thrush. Tongue is midline. Oropharynx: no rash or ulcers. EYES: Pupils are equal, round and reactive to light accommodation. Eye muscles and extraocular movement intact. Sclera is anicteric. Neck; supple no lymphadenopathy, no thyromegaly or bruit Lungs: Normal respiratory rate/effort. Breath sounds bilateral decreased at bases with crackles Heart: Normal rate. s1s2 normal. No rub or gallop. Extremities: no edema. No varicose veins Neurological: Patient is alert, awake and oriented to person, place and time. No focal deficit. Strength bilateral appropriate and equal Skin: Warm and dry. Normal turgor. No rash. Palpitation: Normal elasticity for age Abdomen: Abdomen is soft. Bowel sounds +. There is no abdominal tenderness, no guarding/rigidity no organomegaly Psych: limited insight and normal affect/mood MSK: no joint tenderness or swelling. Digits and nails normal, no deformity : kidney or bladder not palpable Labs/imaging reviewed. Past medical history, past surgical history, family history, social history, allergy reviewed and noted as below Family hx: no hx of CKD. Rest non-contributory renal sono: unremarkable UA 100 protein and 500 mg/gr cr on spot quantification echo: normal LVEF, moderate pulm HTN Objective - Vital Signs/Intake and Output Vital Signs (last 24 hours): Temp Pulse Resp BP Pulse Ox 97.1 F L 66 19 120/53 L 92 L 08/06/17 12:00 08/06/17 12:00 08/06/17 12:00 08/06/17 12:00 08/06/17 06:00 Intake and Output: 08/06/17 08/06/17 06:59 18:59 Intake Total 280 Output Total 0 Balance 280 - Medications Medications: Current Medications Acetaminophen (Tylenol 325mg Tab) 650 mg PO Q6H PRN PRN Reason: Headache Last Admin: 08/05/17 13:46 Dose: 650 mg Ergocalciferol (Drisdol 50,000 Intl Units Cap) 1 cap PO WED [facility] Last Admin: 08/05/17 18:16 Dose: 1 cap Ferrous Gluconate (Fergon) 324 mg PO TID [facility] Last Admin: 08/06/17 14:30 Dose: 324 mg Furosemide (Lasix) 40 mg PO DAILY [facility] Last Admin: 08/06/17 10:51 Dose: 40 mg Heparin Sodium (Porcine) (Heparin) 5,000 units SC Q12 [facility] PRN Reason: Protocol Last Admin: 08/06/17 10:52 Dose: 5,000 units Milrinone Lactate/Dextrose (Primacor 20mg/100ml D5w) 100 mls @ 5.117 mls/hr IV .[id number] PRN; Protocol; 0.2 MCG/KG/MIN PRN Reason: do not titrate Last Admin: 08/05/17 23:45 Dose: 0.2 mcg/kg/min, 5.117 mls/hr Iron Sucrose 100 mg/ Sodium (Chloride) 105 mls @ 210 mls/hr IVPB DAILY [facility] Stop: 08/10/17 10:01 Last Admin: 08/06/17 13:17 Dose: 210 mls/hr Ceftriaxone Sodium 1 gm/ (Sodium Chloride) 100 mls @ 100 mls/hr IVPB DAILY [facility] PRN Reason: Protocol Last Admin: 08/06/17 11:48 Dose: 100 mls/hr Insulin Detemir (Levemir) 20 unit SC HS [facility] Insulin Human Lispro (Humalog Low) 0 units SC ACHS [facility] PRN Reason: Protocol Last Admin: 08/06/17 11:57 Dose: Not Given Insulin Human Lispro (Humalog) 10 units SC AC [facility] Levothyroxine Sodium (Synthroid) 50 mcg PO ACB [facility] Last Admin: 08/06/17 07:49 Dose: 50 mcg Metronidazole (Flagyl) 500 mg PO Q8 [facility] PRN Reason: Protocol Pantoprazole Sodium (Protonix Ec Tab) 40 mg PO DAILY [facility] Last Admin: 08/06/17 10:51 Dose: 40 mg Sevelamer HCl (Renagel) 800 mg PO WM [facility] Last Admin: 08/06/17 14:30 Dose: 800 mg Vitamin B Complex/Vit C/Folic Acid (Nephro-David) 1 tab PO 0800 [facility] Last Admin: 08/06/17 08:05 Dose: 1 tab - Labs Labs: 08/06/17 06:00 08/06/17 06:00 PT 13.6 SECONDS (9.4-12.5) H 08/03/17 11:44 INR 1.23 (0.93-1.08) H 08/03/17 11:44 APTT 34.3 Seconds (25.1-36.5) 08/03/17 11:44
--- NOTE | 2017-08-06 17:12 | RAD ---
HISTORY: F/U pneumonia and compare COMPARISON: 08/03/2017 TECHNIQUE: Chest PA and lateral FINDINGS: LUNGS: Improved aeration right lower lobe and to lesser extent left lower lobe. PLEURA: Improving bilateral pleural effusions. CARDIOVASCULAR: Cardiomegaly, improving pulmonary vascular congestion. OSSEOUS STRUCTURES: No significant abnormalities. VISUALIZED UPPER ABDOMEN: Normal. OTHER FINDINGS: None. IMPRESSION: Improving pulmonary edema/ CHF.
--- NOTE | 2017-08-06 17:20 | US ---
PROCEDURE: Ultrasound guided right thoracentesis. CLINICAL HISTORY: CHF. End-stage renal disease. Bilateral pleural effusions with shortness of breath. PHYSICIAN(S): Shyam Severino MD. TECHNIQUE: The relative risks and indications of the procedure were explained to the patient and consent obtained. The patient was placed in a sitting position on the stretcher and sonography of the chest from a posterior approach performed. There are bilateral small to moderate pleural effusions, slightly greater on the right than the left. A right posterior lateral intercostal approach was selected the area prepped and draped usual sterile fashion. 1 percent xylocaine was used to anesthetize the skin soft tissues. A 7 German catheter was trocar in the right pleural cavity and 1250 cc of straw-colored fluid aspirated. A cytology specimen was sent. IMPRESSION: 1. Ultrasound guided right thoracentesis. 1250 cc of straw-colored fluid were aspirated
[2017-08-06] MEDS: Milrinone 20mg/100ml D5W 100 ML IV PRN (20:00)
[2017-08-06 21:13] LABS: BODY FLUID TYPE PLEURAL
[2017-08-06 21:39] LABS: BF GROSS APPEARANCE CLEAR (CLEAR)
[2017-08-06 21:40] LABS: BODY FLUID TOTAL COUNT 100 (0-0)
[2017-08-06] MEDS ORDERED: Insulin Detemir 100 units/ml Vial (Levemir) SC SCH (22:00)
[2017-08-07] MEDS ORDERED: guaiFENesin 600 mg ER Tab PO ONE (03:01)
[2017-08-07 06:05] LABS: HEMATOCRIT 32.8 % (36.0-48.0); MEAN CELL VOLUME 74.7 fl (80.0-105.0); MEAN CORPUSCULAR HEMOGLOBIN 21.6 pg (25.0-35.0); MEAN PLATELET VOLUME 11.1 fl (7.0-11.0); RED CELL DISTRIBUTION WIDTH 19.3 % (11.5-14.5); WHITE BLOOD COUNT 15.9 10^3/ul (4.5-11.0)
[2017-08-07 06:11] LABS: CALCIUM 8.2 mg/dL (8.4-10.5)
[2017-08-07] MEDS: Insulin Lispro (humaLOG) LOW Coverage SC SCH ×4 (07:48→22:03)
[2017-08-07] MEDS: Insulin Lispro 1 UNITS/0.01 ML SC SCH ×3 (08:15→18:31)
[2017-08-07] MEDS: Multivitamin Vitamin B Complex (Nephro-Vite) Tab PO SCH (08:37)
[2017-08-07] MEDS: Levothyroxine 50 MCG TAB PO SCH (08:37)
[2017-08-07 08:54] LABS: MAGNESIUM 2.2 mg/dL (1.7-2.2); PHOSPHOROUS 5.4 mg/dL (2.5-4.5)
[2017-08-07] MEDS: Pantoprazole 40 mg EC Tab PO SCH (10:42)
--- NOTE | 2017-08-07 13:04 | PN ---
DATE: 08/06/2017 REASON FOR CONSULTATION AND FOLLOWUP: Rule out congestive heart failure, hypoglycemia, altered mental status, status post thoracentesis, large left pleural effusion, pulmonary hypertension, and renal insufficiency. SUBJECTIVE: The patient complained of chest pain in the right side especially at the site of thoracentesis. OBJECTIVE: GENERAL: Not in apparent distress. VITAL SIGNS: As follows; temperature afebrile, heart rate 83, and blood pressure 140/51. HEENT: PERRLA. Extraocular muscles are intact. NECK: Supple. No carotid bruits or thyromegaly. CHEST: Clear to auscultation. HEART: S1 and S2, regular. ABDOMEN: Soft. EXTREMITIES: Clubbing and cyanosis negative. LABORATORY DATA: Blood workup as follows: WBC 15.9, hemoglobin , hematocrit 32.8, and platelet count 611. Chemistry shows sodium 135, potassium 4, chloride 99, carbon dioxide 23, anion gap of 18, BUN 80, and creatinine 4.4. IMPRESSION: Acute kidney injury, chronic renal insufficiency, pulmonary hypertension, large left pleural effusion, status post thoracentesis, 250 mL of thoracentesis was done. Echo shows preserved left ventricular function, ejection fraction of 55% to 60%, [id number] mitral regurgitation, and moderate tricuspid regurgitation. RECOMMENDATIONS: Continue gentle Lasix p.o. to keep negative fluid balance and for pulmonary hypertension. The patient had right heart failure secondary to pulmonary hypertension. Discontinue Primacor. Chest x-ray repeated shows significant improvement in aeration as well as absence of pleural effusion. Discussed with Dr. Parr possible discharge to home. I will closely monitor for the renal function. Thank you, Dr. Berry, for providing us the opportunity in taking care of the patient, Danielle Renner. We will follow with you. She has a history of diabetes, hypertension, and hyperlipidemia as well. We will discontinue Primacor and monitor renal function closely. We will repeat the blood workup in the morning. Amanda Matthews MD
--- NOTE | 2017-08-07 13:53 | CP.PCM.PN ---
Subjective - Date & Time of Evaluation Date of Evaluation: 08/07/17 Time of Evaluation: 13:51 - Subjective Subjective: Follow up Nephrology Consultation: Assessment: critical Acute Kidney Injury (N17.9) possibly hemodynamic, cardio-renal, likely ATN: Cr Platuening Fluid overload/dCHF exacerbation, moderate pulmonary HTN Hypothermia, hypothyroidism Diabetic chronic Kidney Disease (E11.22) Hypertensive Chronic Kidney Disease (I12.9) Chronic Kidney Disease (N18.4 ) Stage 4 with 500 mg proteinuria (R80.9) likely due to DM/HTN Anemia (D64.9), Hyperphosphatemia (E83.39), HTN (I12.9), vit d def with sec hyperparathyroidism respi acidosis Obesity Plan No acute need for renal replacement therapy at this time but will likely need if spontanoeus renal recovery soon. called and had d/w daughter [phone]. Hypertension control with meds as ordered. Patient not on ACEI/ARB due to KYLAH and low BP Monitor Input/Output, daily weights and renal function with basic metabolic panel started iron supplements, nephrovite and phos binders, Vit D weekly will also give IV iron and sc aransep checking ANCA rest all w/up neg Dose meds/antibiotics for reduced GFR <10. Avoid fleets enema/magnesium based laxatives. Avoid nephrotoxins/NSAIDs/ iodinated contrast (unless needed emergently) Glycemic control Further work up/management as per primary team Thanks for allowing me to participate in care of your patient. Will follow patient with you. Please call if any Qs Dr Myles Zhong Office: [phone] Chief Complaint; none today HPI: Pt is a 77 F with hx of diabetes Mellitus ( 35 years), hypertension (many years), CHF, CKD presented with complaints of shortness of breath and found to have hypothermia and shock state. renal consulted for CKD management. she was on inotropes, also IV synthroid. Denies chest pain, palpitation, feels better with shortness of breath, leg swelling. reports nausea with food today low BP when came in ER. staff helped in italian interpretation made 50 mL urine since this AM Physical Examination: General Appearance: Comfortable, in no acute respiratory distress, co-operative . Vitals reviewed and noted as below Head; Atraumatic, normocephalic ENT: no ulcers no thrush. Tongue is midline. Oropharynx: no rash or ulcers. EYES: Pupils are equal, round and reactive to light accommodation. Eye muscles and extraocular movement intact. Sclera is anicteric. Neck; supple no lymphadenopathy, no thyromegaly or bruit Lungs: Normal respiratory rate/effort. Breath sounds bilateral decreased at bases with crackles Heart: Normal rate. s1s2 normal. No rub or gallop. Extremities: no edema. No varicose veins Neurological: Patient is alert, awake and oriented to person, place and time. No focal deficit. Strength bilateral appropriate and equal Skin: Warm and dry. Normal turgor. No rash. Palpitation: Normal elasticity for age Abdomen: Abdomen is soft. Bowel sounds +. There is no abdominal tenderness, no guarding/rigidity no organomegaly Psych: limited insight and normal affect/mood MSK: no joint tenderness or swelling. Digits and nails normal, no deformity : kidney or bladder not palpable Labs/imaging reviewed. Past medical history, past surgical history, family history, social history, allergy reviewed and noted as below Family hx: no hx of CKD. Rest non-contributory renal sono: unremarkable UA 100 protein and 500 mg/gr cr on spot quantification echo: normal LVEF, moderate pulm HTN Objective - Vital Signs/Intake and Output Vital Signs (last 24 hours): Temp Pulse Resp BP Pulse Ox 97.3 F L 78 18 134/49 L 91 L 08/07/17 12:00 08/07/17 12:00 08/07/17 12:00 08/07/17 12:00 08/07/17 06:00 Intake and Output: 08/07/17 08/07/17 06:59 18:59 Intake Total 100 Balance 100 - Medications Medications: Current Medications Acetaminophen (Tylenol 325mg Tab) 650 mg PO Q6H PRN PRN Reason: Pain, Mild (1-3) Last Admin: 08/07/17 08:40 Dose: 650 mg Ergocalciferol (Drisdol 50,000 Intl Units Cap) 1 cap PO WED [facility] Last Admin: 08/05/17 18:16 Dose: 1 cap Ferrous Gluconate (Fergon) 324 mg PO TID [facility] Last Admin: 08/07/17 10:42 Dose: 324 mg Furosemide (Lasix) 40 mg PO DAILY [facility] Last Admin: 08/07/17 10:42 Dose: 40 mg Heparin Sodium (Porcine) (Heparin) 5,000 units SC Q12 [facility] PRN Reason: Protocol Last Admin: 08/07/17 10:44 Dose: 5,000 units Iron Sucrose 100 mg/ Sodium (Chloride) 105 mls @ 210 mls/hr IVPB DAILY [facility] Stop: 08/10/17 10:01 Last Admin: 08/07/17 12:40 Dose: 210 mls/hr Ceftriaxone Sodium 1 gm/ (Sodium Chloride) 100 mls @ 100 mls/hr IVPB DAILY [facility] PRN Reason: Protocol Last Admin: 08/07/17 10:43 Dose: 100 mls/hr Insulin Detemir (Levemir) 24 unit SC HS [facility] Insulin Human Lispro (Humalog Low) 0 units SC ACHS [facility] PRN Reason: Protocol Last Admin: 08/07/17 12:37 Dose: Not Given Insulin Human Lispro (Humalog) 10 units SC AC [facility] Last Admin: 08/07/17 12:44 Dose: 10 units Levothyroxine Sodium (Synthroid) 50 mcg PO ACB [facility] Last Admin: 08/07/17 08:37 Dose: 50 mcg Metronidazole (Flagyl) 500 mg PO Q8 [facility] PRN Reason: Protocol Last Admin: 08/07/17 05:23 Dose: 500 mg Pantoprazole Sodium (Protonix Ec Tab) 40 mg PO DAILY [facility] Last Admin: 08/07/17 10:42 Dose: 40 mg Sevelamer HCl (Renagel) 800 mg PO WM [facility] Last Admin: 08/07/17 12:39 Dose: 800 mg Vitamin B Complex/Vit C/Folic Acid (Nephro-David) 1 tab PO 0800 [facility] Last Admin: 08/07/17 08:37 Dose: 1 tab - Labs Labs: 08/07/17 05:00 08/07/17 05:00 PT 13.6 SECONDS (9.4-12.5) H 08/03/17 11:44 INR 1.23 (0.93-1.08) H 08/03/17 11:44 APTT 34.3 Seconds (25.1-36.5) 08/03/17 11:44
--- NOTE | 2017-08-07 14:38 | PN ---
DATE: 08/07/2017 ENDOCRINE FOLLOWUP NOTE: LOCATION: Room 275. This is a 77-year-old female presenting here with congestive heart failure and associated marked hypotension, bradycardia and hypothermia and has since then improved clinically and hemodynamically as noted thereof. She also has glycemic fluctuations and the latest glucose levels have improved and have ranged from 141 to 171 mg/dL. Her latest chemistry showed a BUN of 80, sodium 135, potassium 4.0, chloride 99, CO2 of 23, glucose 206 and creatinine 4.4. She also had early and overt hypothyroidism on admission and was started on levothyroxine replacement therapy as given. Her latest thyroid studies showed a TSH of 8.38 with a T4 of 6.4 and free T4 of 1.30. She has since then been started on the low-dose levothyroxine at 50 mcg once daily as ordered. We will continue the current basal and bolus insulin regimen as given with Humalog given as 10 units subcu t.i.d. before meals and Levemir given as basal insulin will be increased to 24 units subcu at bedtime daily to start tonight. We will titrate incrementally as indicated to optimize metabolic control. We will obtain serial chemistries and supplement accordingly as needed. We will follow and advise accordingly. Jessica Andujar MD cc:
--- NOTE | 2017-08-07 17:11 | CP.PCM.PN ---
<Rafita Mckinney - Last Filed: 08/07/17 17:06> Subjective - Date & Time of Evaluation Date of Evaluation: 08/07/17 Time of Evaluation: 07:30 - Subjective Subjective: Rafita Mckinney DO PGY1 - Internal Medicine Progress Note Patient seen and examined at bedside. Patient desaturated once overnight, improved with BIPAP. Patient reports feeling slightly better today. Still having loose stools, though not watery. She is still not producing urine. She denies shortness of breath, chest pain, palpitations, abdominal pain, nausea, vomiting, dysuria. She is s/p thoracentesis yesterday, and is complaining of pain at the site of the thoracentesis. Objective - Vital Signs/Intake and Output Vital Signs (last 24 hours): Temp Pulse Resp BP Pulse Ox 97.3 F L 79 18 134/49 L 91 L 08/07/17 12:00 08/07/17 14:00 08/07/17 12:00 08/07/17 12:00 08/07/17 06:00 Intake and Output: 08/07/17 08/07/17 06:59 18:59 Intake Total 100 Balance 100 - Medications Medications: Current Medications Acetaminophen (Tylenol 325mg Tab) 650 mg PO Q6H PRN PRN Reason: Pain, Mild (1-3) Last Admin: 08/07/17 08:40 Dose: 650 mg Ergocalciferol (Drisdol 50,000 Intl Units Cap) 1 cap PO WED [facility] Last Admin: 08/05/17 18:16 Dose: 1 cap Ferrous Gluconate (Fergon) 324 mg PO TID [facility] Last Admin: 08/07/17 14:59 Dose: 324 mg Furosemide (Lasix) 40 mg PO DAILY [facility] Last Admin: 08/07/17 10:42 Dose: 40 mg Heparin Sodium (Porcine) (Heparin) 5,000 units SC Q12 [facility] PRN Reason: Protocol Last Admin: 08/07/17 10:44 Dose: 5,000 units Iron Sucrose 100 mg/ Sodium (Chloride) 105 mls @ 210 mls/hr IVPB DAILY [facility] Stop: 08/10/17 10:01 Last Admin: 08/07/17 12:40 Dose: 210 mls/hr Ceftriaxone Sodium 1 gm/ (Sodium Chloride) 100 mls @ 100 mls/hr IVPB DAILY [facility] PRN Reason: Protocol Last Admin: 08/07/17 10:43 Dose: 100 mls/hr Insulin Detemir (Levemir) 24 unit SC HS [facility] Insulin Human Lispro (Humalog Low) 0 units SC ACHS [facility] PRN Reason: Protocol Last Admin: 08/07/17 16:52 Dose: Not Given Insulin Human Lispro (Humalog) 10 units SC AC [facility] Last Admin: 08/07/17 12:44 Dose: 10 units Levothyroxine Sodium (Synthroid) 50 mcg PO ACB [facility] Last Admin: 08/07/17 08:37 Dose: 50 mcg Metronidazole (Flagyl) 500 mg PO Q8 [facility] PRN Reason: Protocol Last Admin: 08/07/17 14:59 Dose: 500 mg Pantoprazole Sodium (Protonix Ec Tab) 40 mg PO DAILY [facility] Last Admin: 08/07/17 10:42 Dose: 40 mg Sevelamer HCl (Renagel) 800 mg PO WM [facility] Last Admin: 08/07/17 12:39 Dose: 800 mg Vitamin B Complex/Vit C/Folic Acid (Nephro-David) 1 tab PO 0800 [facility] Last Admin: 08/07/17 08:37 Dose: 1 tab - Labs Labs: 08/07/17 05:00 08/07/17 05:00 PT 13.6 SECONDS (9.4-12.5) H 08/03/17 11:44 INR 1.23 (0.93-1.08) H 08/03/17 11:44 APTT 34.3 Seconds (25.1-36.5) 08/03/17 11:44 - Constitutional Appears: Non-toxic, No Acute Distress, Chronically Ill - Head Exam Head Exam: ATRAUMATIC, NORMOCEPHALIC - Eye Exam Eye Exam: EOMI, Normal appearance - ENT Exam ENT Exam: Mucous Membranes Moist - Neck Exam Neck Exam: Normal Inspection - Respiratory Exam Respiratory Exam: NORMAL BREATHING PATTERN Additional comments: Bibasilar rales, dramatically improved since yesterday - Cardiovascular Exam Cardiovascular Exam: RRR, +S1, +S2 - GI/Abdominal Exam GI & Abdominal Exam: Soft, Normal Bowel Sounds. absent: Distended, Firm, Guarding, Rigid, Tenderness - Extremities Exam Extremities Exam: Pedal Edema (improving). absent: Calf Tenderness - Neurological Exam Neurological Exam: Alert, Awake, Oriented x3 - Skin Skin Exam: Dry, Intact, Normal Color, Warm Assessment and Plan - Assessment and Plan (Free Text) Assessment: 77 yo F with PMH of HTN, IDDM, CHF, CKD presents to ER with hypoglycemia, lethargy; noted to be hypothermic, bradycardic and in shock. Clinically improving, though with large pleural effusion noted on echo; now severely oliguric Plan 1. Shock; septic vs cardiogenic - Now resolved - Hypothermia resolved, leukocytosis slightly increased since yesterday; no fever, no new symptoms; likely reactive after thoracentesis yesterday - UA significant for trace LE, few bacteria, and yeast; UCx significant for E coli, BCx negative after 2 days; procal low - Continue ceftriaxone - Patient continues to have some loose stools. Ordered repeat stool studies to confirm positivity/negativity - Continue PO flagyl. Continue contact isolation. - Discontinue IV steroids - Initial ABG showed hypoxia, hypercarbia, and acute respiratory acidosis; Patient saturating well on 2LNC - Echo done, significant for normal LVEF (65%), grade three diastolic dysfunction, and large left pleural effusion - s/p thoracentesis yesterday, as below - Patient's BP and HR improved; off milrinone per cardio - Continue Lasix 40mg PO daily per cardio, as below - Continue PO levothyroxine as below, per endo - Cardio on consult, appreciate recs 2. Left pleural effusion s/p thoracentesis - Patient had large left pleural effusion noted on Echocardiogram - Patient is s/p thoracentesis of the right chest yesterday, with 1250 mL drawn off; sent for cytology, total protein, LDH, glucose, and cell count - Repeat CXR yesterday after thoracentesis shows resolution of pleural effusion , improved aeration - IR on consult; appreciate recs 3. Hypothyroidism - Patient does not have prior diagnosis of hypothyroidism. Thyroid studies indicate primary hypothyroidism. - Continue PO levothyroxine 50mcg daily - Endocrinology on consult, appreciate recs 4. IDDM - Patient presented with hypoglycemia, now resolved - Blood glucose has been markedly elevated; likely 2/2 steroid therapy as well as history of diabetes - Continue SSI low - Insulin regimen adjusted by Dr. Andujar; Levemir 24u HS and Humalog 10u AC - Accucheck ACHS - HbA1c 8.6 - Continue to monitor and titrate basal insulin as indicated 5. h/o HTN - Continue to hold all antihypertensives at this time; BP stable - Milrinone discontinued by cardio - Continue to monitor 6. h/o CHF - Echo significant for normal LVEF, reversible grade III diastolic dysfunction, and large left pleural effusion - Continue Lasix 40mg PO QD - Patient now off milrinone drip per cardio - Continue to hold BB, ACEi in acutely ill state - Daily weight - Strict I&O 7. KYLAH on CKD stage V - No baseline labs to compare; renal function stablizing; remains anuric - No renal replacement therapy indicated at this time, per nephro; workup pending - Monitor I&O - Renal US unremarkable - Nephro on consult, appreciate recs 8. Anemia - Likely 2/2 CKD vs chronic disease vs iron deficiency vs mixed etiology - H&H improving; continue IV iron and PO iron per nephro - FOBT pending - Continue to monitor GI/DVT Ppx - Protonix and Heparin Patient seen, discussed, and reviewed with attending <Flavia Berry - Last Filed: 08/07/17 18:09> Objective - Vital Signs/Intake and Output Vital Signs (last 24 hours): Temp Pulse Resp BP Pulse Ox 97.3 F L 79 18 134/49 L 91 L 08/07/17 12:00 08/07/17 14:00 08/07/17 12:00 08/07/17 12:00 08/07/17 06:00 Intake and Output: 08/07/17 08/07/17 06:59 18:59 Intake Total 100 Balance 100 - Medications Medications: Current Medications Acetaminophen (Tylenol 325mg Tab) 650 mg PO Q6H PRN PRN Reason: Pain, Mild (1-3) Last Admin: 08/07/17 08:40 Dose: 650 mg Ergocalciferol (Drisdol 50,000 Intl Units Cap) 1 cap PO WED [facility] Last Admin: 08/05/17 18:16 Dose: 1 cap Ferrous Gluconate (Fergon) 324 mg PO TID [facility] Last Admin: 08/07/17 14:59 Dose: 324 mg Furosemide (Lasix) 40 mg PO DAILY [facility] Last Admin: 08/07/17 10:42 Dose: 40 mg Heparin Sodium (Porcine) (Heparin) 5,000 units SC Q12 [facility] PRN Reason: Protocol Last Admin: 08/07/17 10:44 Dose: 5,000 units Iron Sucrose 100 mg/ Sodium (Chloride) 105 mls @ 210 mls/hr IVPB DAILY [facility] Stop: 08/10/17 10:01 Last Admin: 08/07/17 12:40 Dose: 210 mls/hr Ceftriaxone Sodium 1 gm/ (Sodium Chloride) 100 mls @ 100 mls/hr IVPB DAILY [facility] PRN Reason: Protocol Last Admin: 08/07/17 10:43 Dose: 100 mls/hr Insulin Detemir (Levemir) 24 unit SC HS [facility] Insulin Human Lispro (Humalog Low) 0 units SC ACHS [facility] PRN Reason: Protocol Last Admin: 08/07/17 16:52 Dose: Not Given Insulin Human Lispro (Humalog) 10 units SC AC [facility] Last Admin: 08/07/17 12:44 Dose: 10 units Levothyroxine Sodium (Synthroid) 50 mcg PO ACB [facility] Last Admin: 08/07/17 08:37 Dose: 50 mcg Metronidazole (Flagyl) 500 mg PO Q8 [facility] PRN Reason: Protocol Last Admin: 08/07/17 14:59 Dose: 500 mg Pantoprazole Sodium (Protonix Ec Tab) 40 mg PO DAILY [facility] Last Admin: 08/07/17 10:42 Dose: 40 mg Sevelamer HCl (Renagel) 800 mg PO WM [facility] Last Admin: 08/07/17 12:39 Dose: 800 mg Vitamin B Complex/Vit C/Folic Acid (Nephro-David) 1 tab PO 0800 [facility] Last Admin: 08/07/17 08:37 Dose: 1 tab - Labs Labs: 08/07/17 05:00 08/07/17 05:00 PT 13.6 SECONDS (9.4-12.5) H 08/03/17 11:44 INR 1.23 (0.93-1.08) H 08/03/17 11:44 APTT 34.3 Seconds (25.1-36.5) 08/03/17 11:44 Attending/Attestation - Attestation I have personally seen and examined this patient.: Yes I have fully participated in the care of the patient.: Yes I have reviewed all pertinent clinical information, including history, physical exam and plan: Yes Notes (Text): 08/07/17 18:07 77 year old female with past medical history of hypertension, diabetes and CKD who presented with altered mental status. She was found to have significant hypoglycemia, hypothermia, bradycardia and hypotension which have now resolved. CXR showed pulmonary vascular congestion consistent with CHF. Echocardiogram shows diastolic dysfunction and pleural effusion. She was seen by cardiology and started on iv lasix and milrinone drip which was discontinued today. She was also seen by IR and is s/p thoracocentesis yesterday. Repeat CXR shows improvement. She had acute on chronic renal disease which is now becoming mahnaz. Nephrology is following. She is on ceftriaxone for UTI and flagyl for C Dif diarrhea. She is on insulin ss and levemir for diabetes and synthroid for hypothyroidism. Anemia workup was reviewed and she was started on iron by nephrology. Recommended outpatient GI workup for iron deficiency anemia. OOB to chair and PT follow up is requested. Flavia Berry MD Hospitalist.
[2017-08-07 21:56] LABS: KAPPA QUANTITATIVE 313 mg/dL (176-443); KAPPA/LAMDA QUANTITATIVE RATIO 1.92 (1.29-2.55); LAMBDA QUANTITATIVE 163 mg/dL (91-240)
[2017-08-07] MEDS: Insulin Detemir 100 units/ml Vial (Levemir) SC SCH (22:04)
[2017-08-08] MEDS ORDERED: Alum-Mag Hydrox-Simethicone Susp (30 mL) PO ONE (04:04)
[2017-08-08 06:56] LABS: HEMATOCRIT 32.5 % (36.0-48.0); MEAN CELL VOLUME 74.9 fl (80.0-105.0); MEAN CORPUSCULAR HEMOGLOBIN 22.4 pg (25.0-35.0); MEAN CORPUSCULAR HGB CONC 29.8 g/dl (31.0-37.0); RED CELL DISTRIBUTION WIDTH 18.5 % (11.5-14.5); WHITE BLOOD COUNT 10.9 10^3/ul (4.5-11.0)
[2017-08-08 07:09] LABS: MAGNESIUM 2.2 mg/dL (1.7-2.2); PHOSPHOROUS 4.7 mg/dL (2.5-4.5)
[2017-08-08] MEDS ORDERED: Pantoprazole 40 mg EC Tab PO SCH (07:30)
[2017-08-08] MEDS: Insulin Lispro (humaLOG) LOW Coverage SC SCH ×4 (07:37→22:24)
[2017-08-08] MEDS: Levothyroxine 50 MCG TAB PO SCH (07:45)
[2017-08-08] MEDS: Pantoprazole 40 mg EC Tab PO SCH (07:45)
[2017-08-08] MEDS: Insulin Lispro 1 UNITS/0.01 ML SC SCH ×3 (08:34→18:15)
[2017-08-08] MEDS: Multivitamin Vitamin B Complex (Nephro-Vite) Tab PO SCH (08:34)
--- NOTE | 2017-08-08 10:58 | CP.PCM.PN ---
<HankRafita - Last Filed: 08/08/17 13:13> Subjective - Date & Time of Evaluation Date of Evaluation: 08/08/17 Time of Evaluation: 07:30 - Subjective Subjective: Rafita Mckinney DO PGY1 - Internal Medicine Progress Note Patient seen and examined at bedside. Patient was intermittently on and off BIPAP overnight. Patient has also been complaining of abdominal pain, which does not improve with tylenol administration. She continues to complain of b/l UQ abdominal pain, worse after meals. She denies nausea, vomiting, fever, chills. She is still having some shortness of breath. Objective - Vital Signs/Intake and Output Vital Signs (last 24 hours): Temp Pulse Resp BP Pulse Ox 97.5 F L 72 20 137/54 L 92 L 08/08/17 06:00 08/08/17 06:00 08/08/17 06:00 08/08/17 06:00 08/08/17 06:00 Intake and Output: 08/08/17 08/08/17 06:59 18:59 Intake Total 1020 Output Total 800 Balance 220 - Medications Medications: Current Medications Acetaminophen (Tylenol 325mg Tab) 650 mg PO Q6H PRN PRN Reason: Pain, Mild (1-3) Last Admin: 08/08/17 04:14 Dose: 650 mg Ergocalciferol (Drisdol 50,000 Intl Units Cap) 1 cap PO WED [facility] Last Admin: 08/05/17 18:16 Dose: 1 cap Ferrous Gluconate (Fergon) 324 mg PO TID [facility] Last Admin: 08/07/17 18:31 Dose: 324 mg Furosemide (Lasix) 40 mg PO DAILY [facility] Last Admin: 08/07/17 10:42 Dose: 40 mg Heparin Sodium (Porcine) (Heparin) 5,000 units SC Q12 [facility] PRN Reason: Protocol Last Admin: 08/07/17 22:03 Dose: 5,000 units Iron Sucrose 100 mg/ Sodium (Chloride) 105 mls @ 210 mls/hr IVPB DAILY [facility] Stop: 08/10/17 10:01 Last Admin: 08/08/17 10:26 Dose: 210 mls/hr Ceftriaxone Sodium 1 gm/ (Sodium Chloride) 100 mls @ 100 mls/hr IVPB DAILY [facility] PRN Reason: Protocol Last Admin: 08/08/17 10:26 Dose: 100 mls/hr Insulin Detemir (Levemir) 24 unit SC HS [facility] Last Admin: 08/07/17 22:04 Dose: Not Given Insulin Human Lispro (Humalog Low) 0 units SC ACHS [facility] PRN Reason: Protocol Last Admin: 08/08/17 07:37 Dose: Not Given Insulin Human Lispro (Humalog) 10 units SC AC [facility] Last Admin: 08/08/17 08:34 Dose: 10 units Levothyroxine Sodium (Synthroid) 50 mcg PO ACB [facility] Last Admin: 08/08/17 07:45 Dose: 50 mcg Metronidazole (Flagyl) 500 mg PO Q8 [facility] PRN Reason: Protocol Last Admin: 08/08/17 05:45 Dose: 500 mg Pantoprazole Sodium (Protonix Ec Tab) 40 mg PO ACB [facility] Sevelamer HCl (Renagel) 800 mg PO WM [facility] Last Admin: 08/08/17 08:34 Dose: 800 mg Vitamin B Complex/Vit C/Folic Acid (Nephro-David) 1 tab PO 0800 [facility] Last Admin: 08/08/17 08:34 Dose: 1 tab - Labs Labs: 08/08/17 06:00 08/07/17 05:00 PT 13.6 SECONDS (9.4-12.5) H 08/03/17 11:44 INR 1.23 (0.93-1.08) H 08/03/17 11:44 APTT 34.3 Seconds (25.1-36.5) 08/03/17 11:44 - Constitutional Appears: Non-toxic, In Acute Distress (mild), Chronically Ill - Head Exam Head Exam: ATRAUMATIC, NORMOCEPHALIC - Eye Exam Eye Exam: EOMI, Normal appearance, Periorbital swelling (mild) - ENT Exam ENT Exam: Mucous Membranes Moist - Neck Exam Neck Exam: Normal Inspection - Respiratory Exam Respiratory Exam: NORMAL BREATHING PATTERN Additional comments: mild diffuse rales Decreased breath sounds bilaterally - Cardiovascular Exam Cardiovascular Exam: RRR, +S1, +S2 - GI/Abdominal Exam GI & Abdominal Exam: Firm, Soft, Normal Bowel Sounds. absent: Distended, Guarding, Rigid, Tenderness Additional comments: dull, hyporesonant No shifting dullness, no fluid wave - Extremities Exam Extremities Exam: Pedal Edema (2+ to knees). absent: Calf Tenderness - Neurological Exam Neurological Exam: Alert, Awake, Oriented x3 - Skin Skin Exam: Dry, Intact, Normal Color Assessment and Plan - Assessment and Plan (Free Text) Assessment: 77 yo F with PMH of HTN, IDDM, CHF, CKD presents to ER with hypoglycemia, lethargy; noted to be hypothermic, bradycardic and in shock. Clinically improving, though with large pleural effusion noted on echo; remains oliguric Plan 1. Shock; septic vs cardiogenic - Now resolved - Patient initially presented in shock state, hypothermic and bradycardic, with concomitant hypoglycemia and previously undiagnosed hypothyroidism - Acute shock state resolved; off inotropic support - Hypothermic and hypoglycemic states resolved - Further management as below 2. Pleural effusion s/p thoracentesis - Patient had large left pleural effusion noted on Echocardiogram - Likely 2/2 CHF vs acute renal failure - IR consulted; chest US showed bilateral pleural effusions, R>L - Patient is s/p thoracentesis of the right chest 08/06, with 1250 mL drawn off; sent for cytology, total protein, LDH, glucose, and cell count - Repeat CXR immediately after thoracentesis shows resolution of pleural effusion, improved aeration - Patient became short of breath overnight, improved on BIPAP. Repeat CXR today shows apparent reaccumulation of pleural fluid, though patient is currently asymptomatic. - Ordered Lasix 40mg IV once; discussed with Dr. Farheen MARTINEZ on consult; appreciate recs 3. Urinary tract infection - UA significant for trace LE, few bacteria, and yeast; UCx significant for E coli, BCx negative after 2 days; procal low - Hypothermia resolved, leukocytosis resolved - Continue ceftriaxone 4. C difficile diarrhea - Frequency of bowel movements decreased - Continue PO flagyl. Continue contact isolation. 5. Hypothyroidism - Continue PO levothyroxine 50mcg daily - Endocrinology on consult, appreciate recs 6. IDDM - Patient presented with hypoglycemia, now resolved - Continue SSI low - Continue Insulin regimen as prescribed by Dr. Andujar; Levemir 24u HS and Humalog 10u AC - Accucheck ACHS - Continue to monitor and titrate basal insulin as indicated 7. h/o HTN - Continue to hold all antihypertensives at this time; BP stable - Continue to monitor 8. h/o CHF - Echo significant for normal LVEF, reversible grade III diastolic dysfunction, and large left pleural effusion - Continue Lasix 40mg PO QD - Ordered Lasix 40mg IV once, as above - Continue to hold BB, ACEi in acutely ill state - Daily weight - Strict I&O 9. KYLAH on CKD stage V - No baseline labs to compare; renal function improved slightly; patient no longer anuric, urine output improved - No renal replacement therapy indicated at this time, per nephro; workup pending - Monitor I&O - Nephro on consult, appreciate recs 10. Anemia - Likely 2/2 CKD vs chronic disease vs iron deficiency vs mixed etiology - H&H improving; continue IV iron and PO iron per nephro - FOBT pending - Continue to monitor GI/DVT Ppx - Protonix and Heparin Patient seen, discussed, and reviewed with attending <Flavia Berry - Last Filed: 08/08/17 14:04> Objective - Vital Signs/Intake and Output Vital Signs (last 24 hours): Temp Pulse Resp BP Pulse Ox 97.4 F L 68 18 143/64 92 L 08/08/17 11:53 08/08/17 11:53 08/08/17 11:53 08/08/17 11:53 08/08/17 06:00 Intake and Output: 08/08/17 08/08/17 06:59 18:59 Intake Total 1020 Output Total 800 Balance 220 - Medications Medications: Current Medications Acetaminophen (Tylenol 325mg Tab) 650 mg PO Q6H PRN PRN Reason: Pain, Mild (1-3) Last Admin: 08/08/17 04:14 Dose: 650 mg Ergocalciferol (Drisdol 50,000 Intl Units Cap) 1 cap PO WED [facility] Last Admin: 08/05/17 18:16 Dose: 1 cap Ferrous Gluconate (Fergon) 324 mg PO TID [facility] Last Admin: 08/08/17 10:55 Dose: 324 mg Furosemide (Lasix) 40 mg PO DAILY [facility] Last Admin: 08/08/17 10:55 Dose: 40 mg Heparin Sodium (Porcine) (Heparin) 5,000 units SC Q12 [facility] PRN Reason: Protocol Last Admin: 08/08/17 10:55 Dose: 5,000 units Iron Sucrose 100 mg/ Sodium (Chloride) 105 mls @ 210 mls/hr IVPB DAILY [facility] Stop: 08/10/17 10:01 Last Admin: 08/08/17 10:26 Dose: 210 mls/hr Ceftriaxone Sodium 1 gm/ (Sodium Chloride) 100 mls @ 100 mls/hr IVPB DAILY [facility] PRN Reason: Protocol Last Admin: 08/08/17 10:26 Dose: 100 mls/hr Insulin Detemir (Levemir) 24 unit SC HS [facility] Last Admin: 08/07/17 22:04 Dose: Not Given Insulin Human Lispro (Humalog Low) 0 units SC ACHS [facility] PRN Reason: Protocol Last Admin: 08/08/17 11:47 Dose: Not Given Insulin Human Lispro (Humalog) 10 units SC AC [facility] Last Admin: 08/08/17 12:01 Dose: Not Given Levothyroxine Sodium (Synthroid) 50 mcg PO ACB [facility] Last Admin: 08/08/17 07:45 Dose: 50 mcg Metronidazole (Flagyl) 500 mg PO Q8 [facility] PRN Reason: Protocol Last Admin: 08/08/17 05:45 Dose: 500 mg Pantoprazole Sodium (Protonix Ec Tab) 40 mg PO ACB [facility] Sevelamer HCl (Renagel) 800 mg PO WM [facility] Last Admin: 08/08/17 08:34 Dose: 800 mg Vitamin B Complex/Vit C/Folic Acid (Nephro-David) 1 tab PO 0800 [facility] Last Admin: 08/08/17 08:34 Dose: 1 tab - Labs Labs: 08/08/17 06:00 08/08/17 07:00 PT 13.6 SECONDS (9.4-12.5) H 08/03/17 11:44 INR 1.23 (0.93-1.08) H 08/03/17 11:44 APTT 34.3 Seconds (25.1-36.5) 08/03/17 11:44 Attending/Attestation - Attestation I have personally seen and examined this patient.: Yes I have fully participated in the care of the patient.: Yes I have reviewed all pertinent clinical information, including history, physical exam and plan: Yes Notes (Text): 08/08/17 14:02 77 year old female with past medical history of hypertension, diabetes and CKD who presented with altered mental status. She was found to have significant hypoglycemia, hypothermia, bradycardia and hypotension which have now resolved. CXR showed pulmonary vascular congestion consistent with CHF and echocardiogram showed diastolic dysfunction and pleural effusion. She was seen by JUAN and is s/p thoracocentesis on Wednesday. She is also being followed by cardiology and is on lasix. She had acute on chronic renal disease which is slowly improving. Nephrology is following. She is on ceftriaxone for UTI and flagyl for C Dif diarrhea. She is on insulin ss and levemir for diabetes and synthroid for hypothyroidism. Anemia workup was reviewed and she was started on iron by nephrology. Recommended outpatient GI workup for iron deficiency anemia. OOB to chair and PT follow up was requested. Flavia Berry MD Hospitalist.
[2017-08-08 11:16] LABS: BILIRUBIN,TOTAL 0.6 mg/dL (0.2-1.3); CALCIUM 8.7 mg/dL (8.4-10.5); POTASSIUM 4.1 mmol/L (3.6-5.0); TOTAL PROTEIN 6.7 g/dL (5.8-8.3)
--- NOTE | 2017-08-08 12:01 | RAD ---
HISTORY: f/u pleural effusion COMPARISON: Comparison chest 08/06/2017. FINDINGS: LUNGS: Mild improvement pulmonary vascular congestion -CHF however persistent bilateral lower lobe atelectasis and/or infiltrate with bilateral effusions. PLEURA: No significant pleural effusion identified, no pneumothorax apparent. CARDIOVASCULAR: Heart size is difficult to assess due to silhouetting of both cardiac borders more so on the left side. The OSSEOUS STRUCTURES: No significant abnormalities. VISUALIZED UPPER ABDOMEN: Normal. OTHER FINDINGS: None. IMPRESSION: Mild improvement pulmonary vascular congestion -CHF however persistent bilateral lower lobe atelectasis and/or infiltrate with bilateral effusions.
--- NOTE | 2017-08-08 13:42 | PN ---
DATE: ENDO FOLLOWUP NOTE LOCATION: Room 275. SUBJECTIVE: This is a 77-year-old female presenting here with congestive heart failure and is now being followed closely for metabolic management. She also has supervening hyperglycemic accelerations, which have improved accordingly with recent insulin dose adjustments as given. She remains clinically euthyroid with early biochemical evidence of hypothyroidism and tolerating the levothyroxine therapy as given. Her latest chemistry showed BUN of 80, sodium of 135, potassium of 4.0, chloride of 99, CO2 of 23, glucose of 206, and creatinine of 4.4. Her glucose levels have ranged from 152 mg/dL to 155 mg/dL. So at this time, we will continue the same basal and bolus insulin regimen as ordered to allow for dose equilibration and keep her on the Humalog given as 10 units subcu t.i.d. before meals as ordered. We will also continue the Levemir given as 24 units subcu at bedtime daily as given. We will continue the low-dose levothyroxine given as 50 mcg daily as ordered. We will titrate incrementally as indicated to optimize metabolic control. We will follow with you. Jessica Andujar MD
--- NOTE | 2017-08-08 14:14 | PN ---
DATE: REASON FOR CONSULTATION AND FOLLOWUP: Rule out congestive heart failure, hypoglycemia, admitted with altered mental status, status post thoracentesis, large pleural effusion, 1250 mL of fluid was drained, pulmonary hypertension, and renal insufficiency. SUBJECTIVE: The patient denies any chest pain. Denies any shortness of breath. Denies any palpitation. Lying on the bed at 30 degree head up. OBJECTIVE: GENERAL: Not in apparent distress. Lying at 30 degree head up. VITAL SIGNS: As follows, temperature afebrile, heart rate 72, and blood pressure 137/54. HEENT: PERRLA. Extraocular muscles intact. NECK: Supple. No carotid bruits or thyromegaly. CHEST: Clear to auscultation. HEART: S1 and S2, regular. ABDOMEN: Soft. EXTREMITIES: Clubbing and cyanosis negative. LABORATORY DATA: Blood workup as follows; WBC 10.9, hemoglobin , hematocrit 32.5, and platelet count 535. Chemistry shows sodium 135, potassium 4, chloride 99, bicarbonate 33, anion gap of 17, BUN 80, and creatinine 4.4 as of yesterday. Today, lab is pending. IMPRESSION: Acute kidney injury on chronic renal insufficiency, pulmonary hypertension, large pleural effusion, status post thoracentesis, 1250 mL of thoracentesis was done. Echo shows preserved left ventricular function, ejection fraction about 60%, [id number] mitral regurgitation, and moderate tricuspid regurgitation, right ventricular systolic pressure of 65 with moderate pulmonary hypertension. RECOMMENDATIONS: Continue low-dose diuretics. We will keep in negative fluid balance. Continue DVT prophylaxis. Supplement iron for anemia. Followup the labs, today's lab is pending. The patient is symptomatically improved after thoracentesis. Continue broad-spectrum antibiotic. We will repeat chest x-ray. Thank you Dr. Berry, for providing us the opportunity in taking care of the patient, Danielle Renner. History of diabetes, hypertension, and hyperlipidemia. Repeat the lab in the morning. Ultimately, the patient may need long-term if the renal function started to for now the patient is stable. We will follow with you. Renal recommended. CVS status is stable. Amanda Matthews MD
--- NOTE | 2017-08-08 17:41 | CP.PCM.PN ---
Subjective - Date & Time of Evaluation Date of Evaluation: 08/08/17 Time of Evaluation: 17:39 - Subjective Subjective: Follow up Nephrology Consultation: Assessment: stable Acute Kidney Injury (N17.9) possibly hemodynamic, cardio-renal, likely ATN: Cr Platuening Fluid overload/dCHF exacerbation, moderate pulmonary HTN Pleural effusion s/p diagnostic and therapeutic thoracocentesis Hypothermia, hypothyroidism Diabetic chronic Kidney Disease (E11.22) Hypertensive Chronic Kidney Disease (I12.9) Chronic Kidney Disease (N18.4 ) Stage 4 with 500 mg proteinuria (R80.9) likely due to DM/HTN Anemia (D64.9), Hyperphosphatemia (E83.39), HTN (I12.9), vit d def with sec hyperparathyroidism respi acidosis Obesity Plan No acute need for renal replacement therapy at this time but will likely need if spontanoeus renal recovery soon. for now has slight improvement in cr and UOP also better. had called and d/w daughter [phone]. Hypertension control with meds as ordered. Patient not on ACEI/ARB due to KYLAH and low BP Monitor Input/Output, daily weights and renal function with basic metabolic panel started iron supplements, nephrovite and phos binders, Vit D weekly will also give IV iron and sc aransep agree with lasix challenge work up for pleural effusion ongoing checking ANCA rest all w/up neg Dose meds/antibiotics for reduced GFR. Avoid fleets enema/magnesium based laxatives. Avoid nephrotoxins/NSAIDs/ iodinated contrast (unless needed emergently) Glycemic control Further work up/management as per primary team Thanks for allowing me to participate in care of your patient. Will follow patient with you. Please call if any Qs. d/w team Dr Myles Zhong Office: [phone] Chief Complaint; none today HPI: Pt is a 77 F with hx of diabetes Mellitus ( 35 years), hypertension (many years), CHF, CKD presented with complaints of shortness of breath and found to have hypothermia and shock state. renal consulted for CKD management. she was on inotropes, also IV synthroid. Denies chest pain, palpitation, feels better with shortness of breath, leg swelling. reports nausea with food today low BP when came in ER. staff helped in lithuanian interpretation made 50 mL urine since this AM Physical Examination: General Appearance: Comfortable, in no acute respiratory distress, co-operative . Vitals reviewed and noted as below Head; Atraumatic, normocephalic ENT: no ulcers no thrush. Tongue is midline. Oropharynx: no rash or ulcers. EYES: Pupils are equal, round and reactive to light accommodation. Eye muscles and extraocular movement intact. Sclera is anicteric. Neck; supple no lymphadenopathy, no thyromegaly or bruit Lungs: Normal respiratory rate/effort. Breath sounds bilateral decreased at bases with crackles Heart: Normal rate. s1s2 normal. No rub or gallop. Extremities: no edema. No varicose veins Neurological: Patient is alert, awake and oriented to person, place and time. No focal deficit. Strength bilateral appropriate and equal Skin: Warm and dry. Normal turgor. No rash. Palpitation: Normal elasticity for age Abdomen: Abdomen is soft. Bowel sounds +. There is no abdominal tenderness, no guarding/rigidity no organomegaly Psych: limited insight and normal affect/mood MSK: no joint tenderness or swelling. Digits and nails normal, no deformity : kidney or bladder not palpable Labs/imaging reviewed. Past medical history, past surgical history, family history, social history, allergy reviewed and noted as below Family hx: no hx of CKD. Rest non-contributory renal sono: unremarkable UA 100 protein and 500 mg/gr cr on spot quantification echo: normal LVEF, moderate pulm HTN Objective - Vital Signs/Intake and Output Vital Signs (last 24 hours): Temp Pulse Resp BP Pulse Ox 97.2 F L 68 18 144/58 L 92 L 08/08/17 17:37 08/08/17 17:37 08/08/17 17:37 08/08/17 17:37 08/08/17 06:00 Intake and Output: 08/08/17 08/08/17 06:59 18:59 Intake Total 1020 720 Output Total 800 800 Balance 220 -80 - Medications Medications: Current Medications Acetaminophen (Tylenol 325mg Tab) 650 mg PO Q6H PRN PRN Reason: Pain, Mild (1-3) Last Admin: 08/08/17 04:14 Dose: 650 mg Ergocalciferol (Drisdol 50,000 Intl Units Cap) 1 cap PO WED [facility] Last Admin: 08/05/17 18:16 Dose: 1 cap Ferrous Gluconate (Fergon) 324 mg PO TID [facility] Last Admin: 08/08/17 14:35 Dose: 324 mg Furosemide (Lasix) 40 mg PO DAILY [facility] Last Admin: 08/08/17 10:55 Dose: 40 mg Heparin Sodium (Porcine) (Heparin) 5,000 units SC Q12 [facility] PRN Reason: Protocol Last Admin: 08/08/17 10:55 Dose: 5,000 units Iron Sucrose 100 mg/ Sodium (Chloride) 105 mls @ 210 mls/hr IVPB DAILY [facility] Stop: 08/10/17 10:01 Last Admin: 08/08/17 10:26 Dose: 210 mls/hr Ceftriaxone Sodium 1 gm/ (Sodium Chloride) 100 mls @ 100 mls/hr IVPB DAILY [facility] PRN Reason: Protocol Last Admin: 08/08/17 10:26 Dose: 100 mls/hr Insulin Detemir (Levemir) 24 unit SC HS [facility] Last Admin: 08/07/17 22:04 Dose: Not Given Insulin Human Lispro (Humalog Low) 0 units SC ACHS [facility] PRN Reason: Protocol Last Admin: 08/08/17 16:36 Dose: Not Given Insulin Human Lispro (Humalog) 10 units SC AC [facility] Last Admin: 08/08/17 12:01 Dose: Not Given Levothyroxine Sodium (Synthroid) 50 mcg PO ACB [facility] Last Admin: 08/08/17 07:45 Dose: 50 mcg Metronidazole (Flagyl) 500 mg PO Q8 [facility] PRN Reason: Protocol Last Admin: 08/08/17 14:36 Dose: 500 mg Pantoprazole Sodium (Protonix Ec Tab) 40 mg PO ACB [facility] Sevelamer HCl (Renagel) 800 mg PO WM [facility] Last Admin: 08/08/17 14:35 Dose: 800 mg Vitamin B Complex/Vit C/Folic Acid (Nephro-David) 1 tab PO 0800 [facility] Last Admin: 08/08/17 08:34 Dose: 1 tab - Labs Labs: 08/08/17 06:00 08/08/17 07:00 PT 13.6 SECONDS (9.4-12.5) H 08/03/17 11:44 INR 1.23 (0.93-1.08) H 08/03/17 11:44 APTT 34.3 Seconds (25.1-36.5) 08/03/17 11:44
[2017-08-08] MEDS: Insulin Detemir 100 units/ml Vial (Levemir) SC SCH (22:23)
[2017-08-09 06:00] LABS: HEMATOCRIT 35.4 % (36.0-48.0); MEAN CELL VOLUME 74.7 fl (80.0-105.0); MEAN CORPUSCULAR HEMOGLOBIN 22.4 pg (25.0-35.0); MEAN CORPUSCULAR HGB CONC 29.9 g/dl (31.0-37.0); RED CELL DISTRIBUTION WIDTH 18.6 % (11.5-14.5); WHITE BLOOD COUNT 10.3 10^3/ul (4.5-11.0)
[2017-08-09 07:07] LABS: BILIRUBIN,TOTAL 0.4 mg/dL (0.2-1.3); CALCIUM 9.1 mg/dL (8.4-10.5); MAGNESIUM 2.2 mg/dL (1.7-2.2); TOTAL PROTEIN 6.9 g/dL (5.8-8.3)
[2017-08-09] MEDS: Insulin Lispro 1 UNITS/0.01 ML SC SCH ×3 (07:30→17:11)
[2017-08-09] MEDS: Insulin Lispro (humaLOG) LOW Coverage SC SCH ×4 (07:30→22:02)
[2017-08-09 07:38] LABS: GLUCOSE PLEURAL FLUID 146 mg/dL; LDH PLEURAL FLUID 67 U/L
[2017-08-09] MEDS: Pantoprazole 40 mg EC Tab PO SCH (08:23)
[2017-08-09] MEDS: Levothyroxine 50 MCG TAB PO SCH (08:24)
[2017-08-09] MEDS: Multivitamin Vitamin B Complex (Nephro-Vite) Tab PO SCH (08:25)
--- NOTE | 2017-08-09 09:59 | CP.PCM.PN ---
<Rafita Mckinney - Last Filed: 08/09/17 12:54> Subjective - Date & Time of Evaluation Date of Evaluation: 08/09/17 Time of Evaluation: 07:30 - Subjective Subjective: Rafita Mckinney DO PGY1 - Internal Medicine Progress Note Patient seen and examined at bedside. Patient had one episode of shortness of breath overnight, associated with severely elevated blood pressure, for which she received supplemental oxygen (she refused BIPAP) and and early dose of PO lasix. Her BP improved slightly and she felt symptomatically better. This morning, she denies chest pain or shortness of breath. She is complaining of bilaterally upper quadrant abdominal pain, started about 30 minutes ago, sharp, intermittent every 5 minutes, radiating to mid lower abdomen, associated with urge to defecate. She denies fever, chills, nausea, vomiting, diarrhea, constipation. Later, she was reexamined and reported that her abdominal pain was relieved after a bowel movement. Objective - Vital Signs/Intake and Output Vital Signs (last 24 hours): Temp Pulse Resp BP Pulse Ox 97.8 F 67 20 161/78 H 93 L 08/09/17 06:00 08/09/17 06:00 08/09/17 06:00 08/09/17 06:00 08/09/17 06:00 Intake and Output: 08/09/17 08/09/17 06:59 18:59 Intake Total 200 Output Total 2600 Balance -2400 - Medications Medications: Current Medications Acetaminophen (Tylenol 325mg Tab) 650 mg PO Q6H PRN PRN Reason: Pain, Mild (1-3) Last Admin: 08/08/17 04:14 Dose: 650 mg Ergocalciferol (Drisdol 50,000 Intl Units Cap) 1 cap PO WED [facility] Last Admin: 08/05/17 18:16 Dose: 1 cap Ferrous Gluconate (Fergon) 324 mg PO TID [facility] Last Admin: 08/08/17 18:14 Dose: 324 mg Furosemide (Lasix) 40 mg PO DAILY [facility] Last Admin: 08/09/17 05:01 Dose: 40 mg Heparin Sodium (Porcine) (Heparin) 5,000 units SC Q12 [facility] PRN Reason: Protocol Last Admin: 08/08/17 22:24 Dose: 5,000 units Iron Sucrose 100 mg/ Sodium (Chloride) 105 mls @ 210 mls/hr IVPB DAILY [facility] Stop: 08/10/17 10:01 Last Admin: 08/08/17 10:26 Dose: 210 mls/hr Ceftriaxone Sodium 1 gm/ (Sodium Chloride) 100 mls @ 100 mls/hr IVPB DAILY [facility] PRN Reason: Protocol Last Admin: 08/08/17 10:26 Dose: 100 mls/hr Insulin Detemir (Levemir) 24 unit SC HS [facility] Last Admin: 08/08/17 22:23 Dose: 24 unit Insulin Human Lispro (Humalog Low) 0 units SC ACHS [facility] PRN Reason: Protocol Last Admin: 08/09/17 07:30 Dose: Not Given Insulin Human Lispro (Humalog) 10 units SC AC [facility] Last Admin: 08/09/17 07:30 Dose: Not Given Levothyroxine Sodium (Synthroid) 50 mcg PO ACB [facility] Last Admin: 08/09/17 08:24 Dose: 50 mcg Metronidazole (Flagyl) 500 mg PO Q8 [facility] PRN Reason: Protocol Last Admin: 08/09/17 05:02 Dose: 500 mg Pantoprazole Sodium (Protonix Ec Tab) 40 mg PO ACB [facility] Last Admin: 08/09/17 08:23 Dose: 40 mg Sevelamer HCl (Renagel) 800 mg PO [facility] Vitamin B Complex/Vit C/Folic Acid (Nephro-David) 1 tab PO 0800 [facility] Last Admin: 08/09/17 08:25 Dose: 1 tab - Labs Labs: 08/09/17 05:30 08/09/17 05:30 PT 13.6 SECONDS (9.4-12.5) H 08/03/17 11:44 INR 1.23 (0.93-1.08) H 08/03/17 11:44 APTT 34.3 Seconds (25.1-36.5) 08/03/17 11:44 - Constitutional Appears: Non-toxic, No Acute Distress - Head Exam Head Exam: ATRAUMATIC, NORMOCEPHALIC - Eye Exam Eye Exam: EOMI, Normal appearance - ENT Exam ENT Exam: Mucous Membranes Moist - Neck Exam Neck Exam: Normal Inspection - Respiratory Exam Respiratory Exam: Decreased Breath Sounds (in all lung turner, worse in lower lung turner), Rales (in bilateral upper lung turner), NORMAL BREATHING PATTERN - Cardiovascular Exam Cardiovascular Exam: REGULAR RHYTHM, +S1, +S2 - GI/Abdominal Exam GI & Abdominal Exam: Firm, Soft, Tenderness (Mild, RUQ), Hypoactive Bowel Sounds. absent: Distended, Guarding, Rigid, Pulsatile Mass, Rebound Additional comments: Hyporesonant on percussion - Extremities Exam Extremities Exam: Pedal Edema (2-3+ to knees). absent: Calf Tenderness - Neurological Exam Neurological Exam: Alert, Awake, Oriented x3 - Psychiatric Exam Psychiatric exam: Normal Affect, Normal Mood - Skin Skin Exam: Dry, Intact Assessment and Plan - Assessment and Plan (Free Text) Assessment: 77 yo F with PMH of HTN, IDDM, CHF, CKD presents to ER with hypoglycemia, lethargy; noted to be hypothermic, bradycardic and in shock. Clinically improving, though with large pleural effusion noted on echo; now diuresing well Plan 1. Pleural effusion s/p thoracentesis - Patient had large left pleural effusion noted on Echocardiogram - Likely 2/2 CHF vs acute renal failure with proteinura - IR consulted; chest US showed bilateral pleural effusions, R>L - Patient is s/p thoracentesis of the right chest on 08/06, with 1250 mL drawn off; sent for cytology, total protein, LDH, glucose, and cell count - Repeat CXR immediately after thoracentesis shows resolution of pleural effusion, improved aeration; repeat CXR two days afterwards showed apparent reaccumulation - Patient still with decreased breath sounds and rales on exam - Patient responded well to IV lasix yesterday; increased diuretics as below - IR on consult; appreciate recs 2. Urinary tract infection - UA significant for trace LE, few bacteria, and yeast; UCx significant for E coli, BCx negative after 2 days; procal low - Hypothermia resolved, leukocytosis resolved - Switched to PO Keflex, continue for 5 more days 3. C difficile diarrhea - Frequency of bowel movements decreased - Continue PO flagyl. Continue contact isolation. 4. Hypothyroidism - Continue PO levothyroxine 50mcg daily - Endocrinology on consult, appreciate recs 5. IDDM - Patient presented with hypoglycemia, now resolved - Continue SSI low - Patient had episode of hypoglycemia this morning, improved after orange juice - Decreased Levemir to 18u HS, continue Humalog 10u AC, with hold paramaters - Accucheck ACHS - Continue to monitor and titrate basal insulin as indicated - Endocrinology on consult, appreciate recs 6. h/o HTN - BP has trended up, markedly elevated this morning - Resume home coreg and hydralazine - Continue to monitor 7. h/o CHF - Echo significant for normal LVEF, reversible grade III diastolic dysfunction, and large left pleural effusion - Responded well to IV lasix yesterday - Increase Lasix 40mg PO BID - Resume BB; continue to hold ACEi in setting of KYLAH on CKD - Daily weight - Strict I&O 8. KYLAH on CKD stage V - No baseline labs to compare; renal function continues to improve; patient with dramatic diuresis yesterday, likely 2/2 lasix and polyuric phase of ATN - No renal replacement therapy indicated at this time, per nephro; workup pending - Monitor I&O - Nephro on consult, appreciate recs 9. Anemia - Likely 2/2 CKD vs chronic disease vs iron deficiency vs mixed etiology - H&H improving; continue IV iron and PO iron per nephro - FOBT pending - Continue to monitor GI/DVT Ppx - Protonix and Heparin Patient seen, discussed, and reviewed with attending <Amanda Harris - Last Filed: 08/09/17 14:43> Objective - Vital Signs/Intake and Output Vital Signs (last 24 hours): Temp Pulse Resp BP Pulse Ox 97.8 F 71 20 185/71 H 93 L 08/09/17 06:00 08/09/17 13:36 08/09/17 06:00 08/09/17 13:36 08/09/17 06:00 Intake and Output: 08/09/17 08/09/17 06:59 18:59 Intake Total 200 Output Total 2600 Balance -2400 - Medications Medications: Current Medications Acetaminophen (Tylenol 325mg Tab) 650 mg PO Q6H PRN PRN Reason: Pain, Mild (1-3) Last Admin: 08/09/17 12:18 Dose: 650 mg Carvedilol (Coreg) 12.5 mg PO BID [facility] Cephalexin Monohydrate (Keflex) 500 mg PO Q8 [facility] PRN Reason: Protocol Last Admin: 08/09/17 14:15 Dose: Not Given Ergocalciferol (Drisdol 50,000 Intl Units Cap) 1 cap PO WED [facility] Last Admin: 08/05/17 18:16 Dose: 1 cap Ferrous Gluconate (Fergon) 324 mg PO TID [facility] Last Admin: 08/09/17 13:35 Dose: 324 mg Furosemide (Lasix) 40 mg PO DAILY [facility] Last Admin: 08/09/17 10:29 Dose: 40 mg Heparin Sodium (Porcine) (Heparin) 5,000 units SC Q12 [facility] PRN Reason: Protocol Last Admin: 08/09/17 10:25 Dose: 5,000 units Hydralazine HCl (Apresoline) 10 mg PO BID [facility] Iron Sucrose 100 mg/ Sodium (Chloride) 105 mls @ 210 mls/hr IVPB DAILY [facility] Stop: 08/10/17 10:01 Last Admin: 08/09/17 10:27 Dose: 210 mls/hr Insulin Detemir (Levemir) 18 unit SC HS [facility] Insulin Human Lispro (Humalog Low) 0 units SC ACHS [facility] PRN Reason: Protocol Last Admin: 08/09/17 11:51 Dose: Not Given Insulin Human Lispro (Humalog) 10 units SC AC [facility] Last Admin: 08/09/17 11:51 Dose: Not Given Levothyroxine Sodium (Synthroid) 50 mcg PO ACB [facility] Last Admin: 08/09/17 08:24 Dose: 50 mcg Metronidazole (Flagyl) 500 mg PO Q8 [facility] PRN Reason: Protocol Last Admin: 08/09/17 13:35 Dose: 500 mg Pantoprazole Sodium (Protonix Ec Tab) 40 mg PO ACB [facility] Last Admin: 08/09/17 08:23 Dose: 40 mg Sevelamer HCl (Renagel) 800 mg PO [facility] Last Admin: 08/09/17 12:18 Dose: 800 mg Vitamin B Complex/Vit C/Folic Acid (Nephro-David) 1 tab PO 0800 [facility] Last Admin: 08/09/17 08:25 Dose: 1 tab - Labs Labs: 08/09/17 05:30 08/09/17 05:30 PT 13.6 SECONDS (9.4-12.5) H 08/03/17 11:44 INR 1.23 (0.93-1.08) H 08/03/17 11:44 APTT 34.3 Seconds (25.1-36.5) 08/03/17 11:44 Attending/Attestation - Attestation I have personally seen and examined this patient.: Yes I have fully participated in the care of the patient.: Yes I have reviewed all pertinent clinical information, including history, physical exam and plan: Yes Notes (Text): 08/09/17 14:26 Patient was seen and examined with medical review specialist. Agreed with resident assessment and plan. 77 year old female with past medical history of hypertension, diabetes and CKD was admitted with with altered mental status. She was found to have s hypoglycemia, hypothermia, bradycardia and hypotension .CXR showed pulmonary vascular congestion consistent with CHF and echocardiogram showed diastolic dysfunction and pleural effusion.She underwent thoracocentesis on Wednesday. Patient had good diuresis, renal functions are improving. Nephrology is following. She is on ceftriaxone for E coli UTI which can be changed to oral and she is on flagyl for C Diff colitis. Patient was found to be hypoglycemic this morning,alert, awake and oriented.We will monitor and adjust medications. Management plan was discussed in detail with patient Education was provided. 08/09/17 14:33
[2017-08-09] MEDS ORDERED: Insulin Detemir 100 units/ml Vial (Levemir) SC SCH (11:52)
[2017-08-09] MEDS ORDERED: Alum-Mag Hydrox-Simethicone Susp (30 mL) PO ONE (13:26)
--- NOTE | 2017-08-09 14:39 | CP.PCM.PN ---
Subjective - Date & Time of Evaluation Date of Evaluation: 08/09/17 Time of Evaluation: 11:00 - Subjective Subjective: Follow up Nephrology Consultation: Assessment: stable Acute Kidney Injury (N17.9) possibly hemodynamic, cardio-renal, likely ATN: improving Fluid overload/dCHF exacerbation, moderate pulmonary HTN Pleural effusion s/p diagnostic and therapeutic thoracocentesis Hypothermia, hypothyroidism Diabetic chronic Kidney Disease (E11.22) Hypertensive Chronic Kidney Disease (I12.9) Chronic Kidney Disease (N18.4 ) Stage 4 with 500 mg proteinuria (R80.9) likely due to DM/HTN Anemia (D64.9), Hyperphosphatemia (E83.39), HTN (I12.9), vit d def with sec hyperparathyroidism respi acidosis Obesity Plan No acute need for renal replacement therapy at this time as good UOP and cr better. likely has polyuric phase of ATN now Hypertension control with meds as ordered. Patient not on ACEI/ARB due to KYLAH. resume home meds Monitor Input/Output, daily weights and renal function with basic metabolic panel started iron supplements, nephrovite and phos binders, Vit D weekly will also give IV iron and sc aransep Increase lasix to 40 mg bid work up for pleural effusion ongoing checking ANCA rest all w/up neg Dose meds/antibiotics for reduced GFR. Avoid fleets enema/magnesium based laxatives. Avoid nephrotoxins/NSAIDs/ iodinated contrast (unless needed emergently) Glycemic control Further work up/management as per primary team Thanks for allowing me to participate in care of your patient. Will follow patient with you. Please call if any Qs. d/w team Dr Myles Zhong Office: [phone] Chief Complaint; none today HPI: Pt is a 77 F with hx of diabetes Mellitus ( 35 years), hypertension (many years), CHF, CKD presented with complaints of shortness of breath and found to have hypothermia and shock state. renal consulted for CKD management. she was on inotropes, also IV synthroid. Denies chest pain, palpitation, feels better with shortness of breath, leg swelling. reports nausea and epigastric pain low BP when came in ER. Jaleesa helped in marshallese interpretation Physical Examination: General Appearance: Comfortable, in no acute respiratory distress, co-operative . Vitals reviewed and noted as below Head; Atraumatic, normocephalic ENT: no ulcers no thrush. Tongue is midline. Oropharynx: no rash or ulcers. EYES: Pupils are equal, round and reactive to light accommodation. Eye muscles and extraocular movement intact. Sclera is anicteric. Neck; supple no lymphadenopathy, no thyromegaly or bruit Lungs: Normal respiratory rate/effort. Breath sounds bilateral decreased at bases with crackles Heart: Normal rate. s1s2 normal. No rub or gallop. Extremities: no edema. No varicose veins Neurological: Patient is alert, awake and oriented to person, place and time. No focal deficit. Strength bilateral appropriate and equal Skin: Warm and dry. Normal turgor. No rash. Palpitation: Normal elasticity for age Abdomen: Abdomen is soft. Bowel sounds +. There is epigastric abdominal tenderness, no guarding/rigidity no organomegaly Psych: limited insight and normal affect/mood MSK: no joint tenderness or swelling. Digits and nails normal, no deformity : kidney or bladder not palpable Labs/imaging reviewed. Past medical history, past surgical history, family history, social history, allergy reviewed and noted as below Family hx: no hx of CKD. Rest non-contributory renal sono: unremarkable UA 100 protein and 500 mg/gr cr on spot quantification echo: normal LVEF, moderate pulm HTN Objective - Vital Signs/Intake and Output Vital Signs (last 24 hours): Temp Pulse Resp BP Pulse Ox 97.8 F 71 20 185/71 H 93 L 08/09/17 06:00 08/09/17 13:36 08/09/17 06:00 08/09/17 13:36 08/09/17 06:00 Intake and Output: 08/09/17 08/09/17 06:59 18:59 Intake Total 200 Output Total 2600 Balance -2400 - Medications Medications: Current Medications Acetaminophen (Tylenol 325mg Tab) 650 mg PO Q6H PRN PRN Reason: Pain, Mild (1-3) Last Admin: 08/09/17 12:18 Dose: 650 mg Carvedilol (Coreg) 12.5 mg PO BID [facility] Cephalexin Monohydrate (Keflex) 500 mg PO Q8 [facility] PRN Reason: Protocol Last Admin: 08/09/17 14:15 Dose: Not Given Ergocalciferol (Drisdol 50,000 Intl Units Cap) 1 cap PO WED [facility] Last Admin: 08/05/17 18:16 Dose: 1 cap Ferrous Gluconate (Fergon) 324 mg PO TID [facility] Last Admin: 08/09/17 13:35 Dose: 324 mg Furosemide (Lasix) 40 mg PO BID [facility] Heparin Sodium (Porcine) (Heparin) 5,000 units SC Q12 [facility] PRN Reason: Protocol Last Admin: 08/09/17 10:25 Dose: 5,000 units Hydralazine HCl (Apresoline) 10 mg PO BID [facility] Iron Sucrose 100 mg/ Sodium (Chloride) 105 mls @ 210 mls/hr IVPB DAILY [facility] Stop: 08/10/17 10:01 Last Admin: 08/09/17 10:27 Dose: 210 mls/hr Insulin Detemir (Levemir) 18 unit SC HS [facility] Insulin Human Lispro (Humalog Low) 0 units SC ACHS [facility] PRN Reason: Protocol Last Admin: 08/09/17 11:51 Dose: Not Given Insulin Human Lispro (Humalog) 10 units SC AC [facility] Last Admin: 08/09/17 11:51 Dose: Not Given Levothyroxine Sodium (Synthroid) 50 mcg PO ACB [facility] Last Admin: 08/09/17 08:24 Dose: 50 mcg Metronidazole (Flagyl) 500 mg PO Q8 [facility] PRN Reason: Protocol Last Admin: 08/09/17 13:35 Dose: 500 mg Pantoprazole Sodium (Protonix Ec Tab) 40 mg PO ACB [facility] Last Admin: 08/09/17 08:23 Dose: 40 mg Sevelamer HCl (Renagel) 800 mg PO WM [facility] Last Admin: 08/09/17 12:18 Dose: 800 mg Vitamin B Complex/Vit C/Folic Acid (Nephro-David) 1 tab PO 0800 [facility] Last Admin: 08/09/17 08:25 Dose: 1 tab - Labs Labs: 08/09/17 05:30 08/09/17 05:30 PT 13.6 SECONDS (9.4-12.5) H 08/03/17 11:44 INR 1.23 (0.93-1.08) H 08/03/17 11:44 APTT 34.3 Seconds (25.1-36.5) 08/03/17 11:44
[2017-08-09] MEDS ORDERED: Insulin Lispro 1 UNITS/0.01 ML SC SCH (16:03)
--- NOTE | 2017-08-09 18:38 | PN ---
DATE: 08/09/2017 REASON FOR CONSULTATION AND FOLLOWUP: Rule out congestive heart failure, hypoglycemia, admitted with altered mental status, status post thoracentesis, large pleural effusion, 1250 mL aspirated, pulmonary hypertension, and renal insufficiency. SUBJECTIVE: The patient denies any chest pain, shortness of breath or any palpitation. Denies any palpitation. Lying on the 30 degree head up. PHYSICAL EXAMINATION: VITAL SIGNS: As follows, temperature afebrile, heart rate 72, and blood pressure 152/70. HEENT: PERRLA. Extraocular muscles intact. NECK: Supple. No carotid bruits or thyromegaly. CHEST: Clear to auscultation. HEART: S1 and S2, regular. ABDOMEN: Soft. EXTREMITIES: Clubbing and cyanosis negative. LABORATORY DATA: Blood workup as follows; WBC 10.2, hemoglobin 10.6, hematocrit 35.4, and platelet count 498. Chemistry shows sodium 132, potassium 4, chloride 98, bicarbonate 26, anion gap of 16, BUN 73, and creatinine 3.4. IMPRESSION: Acute kidney injury on chronic renal insufficiency, pulmonary hypertension, preserved left ventricular function, pleural effusion large, status post thoracentesis. A repeat chest x-ray yesterday shows possibly reaccumulating fluid. We will repeat x-ray today. Serial studies stable. Continue Coreg. Continue high dose p.r.n. Avoid nephrotoxic medication and continue antibiotic Lasix p.o. as well Nephrology will follow with you. Thank you Dr. Berry providing us the opportunity in taking care of the patient, Danielle Renner. We will repeat chest x-ray to compare. Amanda Matthews MD
--- NOTE | 2017-08-09 18:58 | PN ---
ENDOCRINOLOGY FOLLOWUP NOTE DATE: LOCATION: In room 275. SUBJECTIVE: This is a 77-year-old female with recent uncontrolled type 2 insulin-requiring diabetes now being followed closely for metabolic management. She also has had very early onset of hypothyroidism and is tolerating the low-dose, levothyroxine given as 50 mcg once daily as ordered. Her repeat glucose values are fluctuating and are ranging from 152 to 206 mg/dL. The glucose values today have ranged from 129 noted at lunchtime today as ordered. Her latest chemistry showed a BUN of 73, sodium 136, potassium 4.0, chloride 98, CO2 of 26, glucose 129, and creatinine 3.4. So, at this time, we will modify once again her basal insulin and lower the basal insulin with Levemir to be given as 12 units subcutaneously at bedtime daily to start tonight. We will continue the low-dose correction scale using Humalog insulin as given to obviate hypoglycemia and detailed orders have been given. We will also lower the Humalog given for each meal to much lower dose of 6 units subcutaneously t.i.d. before meals to start at dinnertime today as ordered. We will titrate incrementally as indicated to optimize metabolic control. We will also continue the low-dose oral hypoglycemic drug therapy as given with Amaryl given as 4 mg b.i.d. before meals as ordered. We will titrate incrementally as indicated to optimize metabolic control. We will obtain serial chemistries and supplement accordingly as needed. We will follow. Jessica Andujar MD
[2017-08-09] MEDS: Insulin Detemir 100 units/ml Vial (Levemir) SC SCH (22:02)
--- NOTE | 2017-08-09 23:49 | CARD ---
APPROVED REPORT EKG Measurement Heart [id number] <Conclusion> Normal sinus rhythm Rightward axis Pulmonary disease pattern Abnormal ECG
[2017-08-10 06:52] LABS: HEMATOCRIT 36.1 % (36.0-48.0); MEAN CELL VOLUME 75.4 fl (80.0-105.0); MEAN CORPUSCULAR HEMOGLOBIN 22.3 pg (25.0-35.0); MEAN CORPUSCULAR HGB CONC 29.6 g/dl (31.0-37.0); MEAN PLATELET VOLUME 11.1 fl (7.0-11.0); RED CELL DISTRIBUTION WIDTH 19.2 % (11.5-14.5); WHITE BLOOD COUNT 9.1 10^3/ul (4.5-11.0)
[2017-08-10 07:05] LABS: BILIRUBIN,TOTAL 0.5 mg/dL (0.2-1.3); POTASSIUM 4.4 mmol/L (3.6-5.0); TOTAL PROTEIN 6.8 g/dL (5.8-8.3)
[2017-08-10] MEDS: Multivitamin Vitamin B Complex (Nephro-Vite) Tab PO SCH (08:22)
[2017-08-10] MEDS: Levothyroxine 50 MCG TAB PO SCH (08:22)
[2017-08-10] MEDS: Pantoprazole 40 mg EC Tab PO SCH (08:22)
[2017-08-10] MEDS: Insulin Lispro (humaLOG) LOW Coverage SC SCH ×3 (08:22→17:44)
[2017-08-10] MEDS: Insulin Lispro 1 UNITS/0.01 ML SC SCH ×3 (08:23→17:44)
--- NOTE | 2017-08-10 09:42 | RAD ---
HISTORY: COMPARISON: 08/08/2017 TECHNIQUE: Chest PA and lateral FINDINGS: LINES AND TUBES: None. LUNG AND PLEURA: Again seen is severe pulmonary venous congestion. There are bilateral lower lobe consolidations. No change in bilateral pleural effusions. HEART AND MEDIASTINUM: The heart is not enlarged. The hilar and mediastinal contours are within normal limits. SKELETAL STRUCTURES: The bony structures are within normal limits for the patient's age. VISUALIZED UPPER ABDOMEN: Normal. OTHER FINDINGS: None. IMPRESSION: No significant interval change in bilateral lower lobe consolidations and bilateral pleural effusions
--- NOTE | 2017-08-10 11:20 | CP.PCM.PN ---
Subjective - Date & Time of Evaluation Date of Evaluation: 08/10/17 Time of Evaluation: 11:18 - Subjective Subjective: Follow up Nephrology Consultation: Assessment: stable Acute Kidney Injury (N17.9) possibly hemodynamic, cardio-renal, likely ATN: improving Fluid overload/dCHF exacerbation, moderate pulmonary HTN Pleural effusion s/p diagnostic and therapeutic thoracocentesis Hypothermia, hypothyroidism Diabetic chronic Kidney Disease (E11.22) Hypertensive Chronic Kidney Disease (I12.9) Chronic Kidney Disease (N18.4 ) Stage 4 with 500 mg proteinuria (R80.9) likely due to DM/HTN Anemia (D64.9), Hyperphosphatemia (E83.39), HTN (I12.9), vit d def with sec hyperparathyroidism respi acidosis Obesity Plan No acute need for renal replacement therapy at this time as good UOP and cr better. likely has polyuric phase of ATN now Hypertension control with meds as ordered. Patient not on ACEI/ARB due to KYLAH. resume home meds Monitor Input/Output, daily weights and renal function with basic metabolic panel started iron supplements, nephrovite and phos binders, Vit D weekly given IV iron and had received sc aransep Increase lasix to 40 mg bid work up for pleural effusion ongoing GN work up all neg can d/c zabala Dose meds/antibiotics for reduced GFR. Avoid fleets enema/magnesium based laxatives. Avoid nephrotoxins/NSAIDs/ iodinated contrast (unless needed emergently) Glycemic control Further work up/management as per primary team Thanks for allowing me to participate in care of your patient. Will follow patient with you. Please call if any Qs. d/w team Dr Myles Zhong Office: [phone] Chief Complaint; none today HPI: Pt is a 77 F with hx of diabetes Mellitus ( 35 years), hypertension (many years), CHF, CKD presented with complaints of shortness of breath and found to have hypothermia and shock state. renal consulted for CKD management. she was on inotropes, also IV synthroid. Denies chest pain, palpitation, feels better with shortness of breath, no leg swelling. denies nausea or epigastric pain had low BP when came in ER. Physical Examination: General Appearance: Comfortable, in no acute respiratory distress, co-operative . Vitals reviewed and noted as below Head; Atraumatic, normocephalic ENT: no ulcers no thrush. Tongue is midline. Oropharynx: no rash or ulcers. EYES: Pupils are equal, round and reactive to light accommodation. Eye muscles and extraocular movement intact. Sclera is anicteric. Neck; supple no lymphadenopathy, no thyromegaly or bruit Lungs: Normal respiratory rate/effort. Breath sounds bilateral decreased at bases with crackles Heart: Normal rate. s1s2 normal. No rub or gallop. Extremities: no edema. No varicose veins Neurological: Patient is alert, awake and oriented to person, place and time. No focal deficit. Strength bilateral appropriate and equal Skin: Warm and dry. Normal turgor. No rash. Palpitation: Normal elasticity for age Abdomen: Abdomen is soft. Bowel sounds +. There is epigastric abdominal tenderness, no guarding/rigidity no organomegaly Psych: limited insight and normal affect/mood MSK: no joint tenderness or swelling. Digits and nails normal, no deformity : kidney or bladder not palpable Labs/imaging reviewed. Past medical history, past surgical history, family history, social history, allergy reviewed and noted as below Family hx: no hx of CKD. Rest non-contributory renal sono: unremarkable UA 100 protein and 500 mg/gr cr on spot quantification echo: normal LVEF, moderate pulm HTN Objective - Vital Signs/Intake and Output Vital Signs (last 24 hours): Temp Pulse Resp BP Pulse Ox 97.3 F L 76 18 137/63 96 08/10/17 05:43 08/10/17 10:00 08/10/17 05:43 08/10/17 09:54 08/10/17 05:43 Intake and Output: 08/10/17 08/10/17 06:59 18:59 Intake Total 220 Balance 220 - Medications Medications: Current Medications Acetaminophen (Tylenol 325mg Tab) 650 mg PO Q6H PRN PRN Reason: Pain, Mild (1-3) Last Admin: 08/09/17 23:08 Dose: 650 mg Carvedilol (Coreg) 12.5 mg PO BID [facility] Last Admin: 08/10/17 09:54 Dose: 12.5 mg Cephalexin Monohydrate (Keflex) 500 mg PO Q8 [facility] PRN Reason: Protocol Last Admin: 08/10/17 06:12 Dose: 500 mg Ergocalciferol (Drisdol 50,000 Intl Units Cap) 1 cap PO WED [facility] Last Admin: 08/05/17 18:16 Dose: 1 cap Ferrous Gluconate (Fergon) 324 mg PO TID [facility] Last Admin: 08/10/17 09:54 Dose: 324 mg Furosemide (Lasix) 40 mg PO BID [facility] Last Admin: 08/10/17 09:54 Dose: 40 mg Heparin Sodium (Porcine) (Heparin) 5,000 units SC Q12 [facility] PRN Reason: Protocol Last Admin: 08/10/17 09:55 Dose: 5,000 units Hydralazine HCl (Apresoline) 25 mg PO QID [facility] Last Admin: 08/10/17 09:53 Dose: 25 mg Insulin Detemir (Levemir) 12 unit SC HS [facility] Last Admin: 08/09/17 22:02 Dose: Not Given Insulin Human Lispro (Humalog Low) 0 units SC ACHS [facility] PRN Reason: Protocol Last Admin: 08/10/17 08:22 Dose: Not Given Insulin Human Lispro (Humalog) 6 units SC AC [facility] Last Admin: 08/10/17 08:23 Dose: 6 units Levothyroxine Sodium (Synthroid) 50 mcg PO ACB [facility] Last Admin: 08/10/17 08:22 Dose: 50 mcg Metronidazole (Flagyl) 500 mg PO Q8 [facility] PRN Reason: Protocol Last Admin: 08/10/17 06:12 Dose: 500 mg Pantoprazole Sodium (Protonix Ec Tab) 40 mg PO ACB [facility] Last Admin: 08/10/17 08:22 Dose: 40 mg Sevelamer HCl (Renagel) 800 mg PO WM [facility] Last Admin: 08/10/17 08:22 Dose: 800 mg Vitamin B Complex/Vit C/Folic Acid (Nephro-David) 1 tab PO 0800 [facility] Last Admin: 08/10/17 08:22 Dose: 1 tab - Labs Labs: 08/10/17 05:30 08/10/17 05:30 PT 13.6 SECONDS (9.4-12.5) H 08/03/17 11:44 INR 1.23 (0.93-1.08) H 08/03/17 11:44 APTT 34.3 Seconds (25.1-36.5) 08/03/17 11:44
--- NOTE | 2017-08-10 13:25 | PN ---
DATE: 08/10/2017 REASON FOR CONSULTATION AND FOLLOWUP: Rule out congestive heart failure, hypoglycemia, admitted with altered mental status, status post thoracentesis. SUBJECTIVE: The patient denies any chest pain, shortness of breath or any palpitation. OBJECTIVE: GENERAL: Not in apparent distress. VITAL SIGNS: As follows, temperature afebrile, heart rate 76, and blood pressure 137/76. HEENT: PERRLA. Intact. NECK: Supple. No carotid bruits or thyromegaly. CHEST: Clear to auscultation. HEART: S1 and S2 regular. ABDOMEN: Soft. EXTREMITIES: Clubbing and cyanosis negative. LABORATORY DATA: WBC 9.1, hemoglobin 10.6, hematocrit 35.4, and platelet count 438. Chemistry shows sodium 130, potassium 4.4, chloride 98, carbon dioxide 26, anion gap of 17, BUN 61, and creatinine 2.6. IMPRESSION: Acute kidney injury on chronic renal insufficiency, admitting creatinine was 2.4, now the patient turned to the baseline, history of severe pulmonary hypertension, status post large volume thoracentesis, 1250 mL of fluid was drained. Echo shows preserved left ventricular function. Repeat x-ray shows reaccumulation after the first x-ray, so yesterday chest x-ray was repeated again and it shows no significant bilateral lower consolidation and bilateral pleural effusion. RECOMMENDATIONS: Avoid nephrotoxic medication. Continue Coreg 12.5 mg. Continue hydralazine p.r.n. Continue DVT prophylaxis. Continue Lasix p.o. Monitor renal function. We will discontinue telemetry. Thank you Dr. Foote/Dr. Jesus for providing us the opportunity in taking care of the patient, Danielle Renner. Amanda Matthews MD
--- NOTE | 2017-08-10 16:34 | CP.PCM.PN ---
<Rafita Mckinney - Last Filed: 08/10/17 16:52> Subjective - Date & Time of Evaluation Date of Evaluation: 08/10/17 Time of Evaluation: 07:30 - Subjective Subjective: Rafita Mckinney DO PGY1 - Internal Medicine Progress Note Patient seen and examined at bedside. No events overnight. Patient reports feeling better overall than yesterday. Patient now denies any chest pain, shortness of breath, abdominal pain, nausea, jaw pain, vomiting, diarrhea, fevers, chills. She feels as though the swelling in her arms and legs is decreasing. Objective - Vital Signs/Intake and Output Vital Signs (last 24 hours): Temp Pulse Resp BP Pulse Ox 98.7 F 70 19 147/63 96 08/10/17 12:00 08/10/17 12:00 08/10/17 12:00 08/10/17 12:00 08/10/17 05:43 Intake and Output: 08/10/17 08/10/17 06:59 18:59 Intake Total 220 Balance 220 - Medications Medications: Current Medications Acetaminophen (Tylenol 325mg Tab) 650 mg PO Q6H PRN PRN Reason: Pain, Mild (1-3) Last Admin: 08/09/17 23:08 Dose: 650 mg Carvedilol (Coreg) 12.5 mg PO BID [facility] Last Admin: 08/10/17 09:54 Dose: 12.5 mg Cephalexin Monohydrate (Keflex) 500 mg PO Q8 [facility] PRN Reason: Protocol Last Admin: 08/10/17 06:12 Dose: 500 mg Ergocalciferol (Drisdol 50,000 Intl Units Cap) 1 cap PO WED [facility] Last Admin: 08/05/17 18:16 Dose: 1 cap Ferrous Gluconate (Fergon) 324 mg PO TID [facility] Last Admin: 08/10/17 09:54 Dose: 324 mg Furosemide (Lasix) 40 mg PO BID [facility] Last Admin: 08/10/17 09:54 Dose: 40 mg Heparin Sodium (Porcine) (Heparin) 5,000 units SC Q12 [facility] PRN Reason: Protocol Last Admin: 08/10/17 09:55 Dose: 5,000 units Hydralazine HCl (Apresoline) 25 mg PO QID [facility] Last Admin: 08/10/17 09:53 Dose: 25 mg Insulin Detemir (Levemir) 12 unit SC HS [facility] Last Admin: 08/09/17 22:02 Dose: Not Given Insulin Human Lispro (Humalog Low) 0 units SC ACHS [facility] PRN Reason: Protocol Last Admin: 08/10/17 12:30 Dose: Not Given Insulin Human Lispro (Humalog) 6 units SC AC [facility] Last Admin: 08/10/17 12:37 Dose: 6 units Levothyroxine Sodium (Synthroid) 50 mcg PO ACB [facility] Last Admin: 08/10/17 08:22 Dose: 50 mcg Metronidazole (Flagyl) 500 mg PO Q8 [facility] PRN Reason: Protocol Last Admin: 08/10/17 06:12 Dose: 500 mg Pantoprazole Sodium (Protonix Ec Tab) 40 mg PO ACB [facility] Last Admin: 08/10/17 08:22 Dose: 40 mg Sevelamer HCl (Renagel) 800 mg PO WM [facility] Last Admin: 08/10/17 12:36 Dose: 800 mg Vitamin B Complex/Vit C/Folic Acid (Nephro-David) 1 tab PO 0800 [facility] Last Admin: 08/10/17 08:22 Dose: 1 tab - Labs Labs: 08/10/17 05:30 08/10/17 05:30 PT 13.6 SECONDS (9.4-12.5) H 08/03/17 11:44 INR 1.23 (0.93-1.08) H 08/03/17 11:44 APTT 34.3 Seconds (25.1-36.5) 08/03/17 11:44 - Constitutional Appears: Non-toxic, No Acute Distress, Chronically Ill - Head Exam Head Exam: ATRAUMATIC, NORMOCEPHALIC - Eye Exam Eye Exam: EOMI, Normal appearance, Periorbital swelling, PERRL - ENT Exam ENT Exam: Mucous Membranes Moist - Neck Exam Neck Exam: Normal Inspection - Respiratory Exam Respiratory Exam: Decreased Breath Sounds (improved since yesterday), Rales ( diffuse, improved since yesterday), NORMAL BREATHING PATTERN - Cardiovascular Exam Cardiovascular Exam: REGULAR RHYTHM, +S1, +S2 - GI/Abdominal Exam GI & Abdominal Exam: Soft, Normal Bowel Sounds. absent: Distended, Firm, Guarding, Rigid, Tenderness - Extremities Exam Extremities Exam: absent: Calf Tenderness Additional comments: B/L LE 2+ pitting edema to knees B/L UE 2+ pitting edema to elbows - Neurological Exam Neurological Exam: Alert, Awake, Oriented x3 - Psychiatric Exam Psychiatric exam: Normal Affect, Normal Mood - Skin Skin Exam: Dry, Intact, Normal Color Assessment and Plan - Assessment and Plan (Free Text) Assessment: 77 yo F with PMH of HTN, IDDM, CHF, CKD presents to ER with hypoglycemia, lethargy; noted to be hypothermic, bradycardic and in shock. Clinically improving, though with large pleural effusion noted on echo; now diuresing well Plan 1. Pleural effusion s/p thoracentesis - Patient had large left pleural effusion noted on Echocardiogram - Likely 2/2 CHF vs acute renal failure with proteinura - IR consulted; chest US showed bilateral pleural effusions, R>L - Patient is s/p thoracentesis of the right chest on 08/06, with 1250 mL drawn off; sent for cytology, total protein, LDH, glucose, and cell count - Repeat CXR immediately after thoracentesis shows resolution of pleural effusion, improved aeration; repeat CXR two days afterwards showed apparent reaccumulation - Patient still with decreased breath sounds and rales on exam - Patient responded well to IV lasix yesterday; increased diuretics as below - IR on consult; appreciate recs 2. Urinary tract infection - UA significant for trace LE, few bacteria, and yeast; UCx significant for E coli, BCx negative after 2 days; procal low - Hypothermia resolved, leukocytosis resolved - Switched to PO Keflex, continue for 4 more days (total 5) 3. C diff Diarrhea - resolved - Patient no longer having active diarrhea, but on initial diagnosis, did have diarrhea and antigen positive C diff studies - Continue PO flagyl for 6 more days (total 10) 4. Hypothyroidism - Continue PO levothyroxine 50mcg daily - Endocrinology on consult, appreciate recs 5. IDDM - Patient presented with hypoglycemia, now resolved - Insulin regimen adjusted by endocrinology; continue levimir 12u HS and humalog 6u AC - Continue SSI low - Accucheck ACHS - Endocrinology on consult, appreciate recs 6. h/o HTN - BP now well controlled - Continue home coreg and hydralazine; continue Lasix 40 PO BID - Continue to monitor 7. h/o CHF - Echo significant for normal LVEF, reversible grade III diastolic dysfunction, and large left pleural effusion - Diuresing well on PO lasix; has lost about 16 lbs so far in the past 3 days, though still fluid overloaded - Continue Lasix 40mg PO BID - Resume BB; continue to hold ACEi in setting of KYLAH on CKD - Daily weight - Strict I&O 8. KYLAH on CKD stage V - improving - No baseline labs to compare; renal function continues to improve, nearly back to baseline from admission - Patient continues to diurese well, likely 2/2 lasix and polyuric phase of ATN - Monitor I&O - Discontinue zabala catheter - Nephro on consult, appreciate recs 9. Anemia - Likely 2/2 CKD vs chronic disease vs iron deficiency vs mixed etiology - H&H improving; continue IV iron and PO iron per nephro - FOBT pending - Continue to monitor 10. Deconditioning - Requested PT evaluation and treatment - Patient has been intermittently oxygen dependant during hospitalization; requested evaluation for home oxygen GI/DVT Ppx - Protonix and Heparin Patient seen, discussed, and reviewed with attending <Amanda Harris - Last Filed: 08/10/17 17:21> Objective - Vital Signs/Intake and Output Vital Signs (last 24 hours): Temp Pulse Resp BP Pulse Ox 98.7 F 70 19 147/63 96 08/10/17 12:00 08/10/17 12:00 08/10/17 12:00 08/10/17 12:00 08/10/17 05:43 Intake and Output: 08/10/17 08/10/17 06:59 18:59 Intake Total 220 Balance 220 - Medications Medications: Current Medications Acetaminophen (Tylenol 325mg Tab) 650 mg PO Q6H PRN PRN Reason: Pain, Mild (1-3) Last Admin: 08/09/17 23:08 Dose: 650 mg Carvedilol (Coreg) 12.5 mg PO BID [facility] Last Admin: 08/10/17 09:54 Dose: 12.5 mg Cephalexin Monohydrate (Keflex) 500 mg PO Q8 [facility] PRN Reason: Protocol Last Admin: 08/10/17 06:12 Dose: 500 mg Ergocalciferol (Drisdol 50,000 Intl Units Cap) 1 cap PO WED [facility] Last Admin: 08/05/17 18:16 Dose: 1 cap Ferrous Gluconate (Fergon) 324 mg PO TID [facility] Last Admin: 08/10/17 09:54 Dose: 324 mg Furosemide (Lasix) 40 mg PO BID [facility] Last Admin: 08/10/17 09:54 Dose: 40 mg Heparin Sodium (Porcine) (Heparin) 5,000 units SC Q12 [facility] PRN Reason: Protocol Last Admin: 08/10/17 09:55 Dose: 5,000 units Hydralazine HCl (Apresoline) 25 mg PO QID [facility] Last Admin: 08/10/17 09:53 Dose: 25 mg Insulin Detemir (Levemir) 12 unit SC HS [facility] Last Admin: 08/09/17 22:02 Dose: Not Given Insulin Human Lispro (Humalog Low) 0 units SC ACHS [facility] PRN Reason: Protocol Last Admin: 08/10/17 12:30 Dose: Not Given Insulin Human Lispro (Humalog) 6 units SC AC [facility] Last Admin: 08/10/17 12:37 Dose: 6 units Levothyroxine Sodium (Synthroid) 50 mcg PO ACB [facility] Last Admin: 08/10/17 08:22 Dose: 50 mcg Metronidazole (Flagyl) 500 mg PO Q8 [facility] PRN Reason: Protocol Last Admin: 08/10/17 06:12 Dose: 500 mg Pantoprazole Sodium (Protonix Ec Tab) 40 mg PO ACB [facility] Last Admin: 08/10/17 08:22 Dose: 40 mg Sevelamer HCl (Renagel) 800 mg PO WM [facility] Last Admin: 08/10/17 12:36 Dose: 800 mg Vitamin B Complex/Vit C/Folic Acid (Nephro-David) 1 tab PO 0800 [facility] Last Admin: 08/10/17 08:22 Dose: 1 tab - Labs Labs: 08/10/17 05:30 08/10/17 05:30 PT 13.6 SECONDS (9.4-12.5) H 08/03/17 11:44 INR 1.23 (0.93-1.08) H 08/03/17 11:44 APTT 34.3 Seconds (25.1-36.5) 08/03/17 11:44 Attending/Attestation - Attestation I have personally seen and examined this patient.: Yes I have fully participated in the care of the patient.: Yes I have reviewed all pertinent clinical information, including history, physical exam and plan: Yes Notes (Text): 08/10/17 17:18 Patient was seen and examined with ophthalmic medical assistant. 77 year old female with past medical history of hypertension, diabetes and CKD was admitted with with altered mental status. She was found to have s hypoglycemia, hypothermia, bradycardia and hypotension .CXR showed pulmonary vascular congestion consistent with CHF and echocardiogram showed diastolic dysfunction and pleural effusion.She underwent thoracocentesis on Wednesday. Patient is having good good diuresis, renal functions are improving. We will continue oral lasix.Patient case was discussed with Nephrology. Diarrhea has improved, on oral Metronidazole for Clostridium dif colitis. Hypoglycemia has resolved. We will get Physical therapy evaluation. We will also get evaluation for home oxygen. Management plan was discussed in detail with patient Education was provided.
--- NOTE | 2017-08-10 19:27 | PN ---
DATE: ENDOCRINE FOLLOWUP NOTE LOCATION: Room 275. SUBJECTIVE: This is a 77-year-old female with recent admissions for congestive heart failure, . LABORATORY DATA: The latest glucose values are fluctuating, but improved and the values have ranged from 118 to 192 mg/dL. The latest chemistry showed a BUN of 61, sodium 138, potassium 4.4, chloride 98, CO2 of 26, glucose 211, and creatinine 2.6. ASSESSMENT AND PLAN: So at this time, we will continue the same basal and bolus insulin regimen to allow her dose calibration and keep her on the Humalog given as 6 units subcu t.i.d. before meals as ordered. We will continue Levemir given as 12 units subcu at bedtime daily as given. We will titrate incrementally as indicated to optimize metabolic control. We will follow with you. Jessica Andujar MD
[2017-08-10] MEDS: Insulin Detemir 100 units/ml Vial (Levemir) SC SCH (21:15)
[2017-08-11] MEDS: Insulin Lispro (humaLOG) LOW Coverage SC SCH ×4 (00:32→17:58)
[2017-08-11 07:17] LABS: BASO # 0.03 K/mm3 (0.0-2.0); BASO % 0.3 % (0.0-3.0); EOS # 0.2 (0.0-0.7); EOS % 1.8 % (1.5-5.0); GRAN # 6.83 (1.4-6.5); GRAN % 77.5 % (50.0-68.0); LYMPH # 1.3 (1.2-3.4); LYMPH % 14.8 % (22.0-35.0); MEAN CELL VOLUME 76.3 fl (80.0-105.0); MEAN CORPUSCULAR HEMOGLOBIN 22.7 pg (25.0-35.0); MEAN CORPUSCULAR HGB CONC 29.7 g/dl (31.0-37.0); MEAN PLATELET VOLUME 10.9 fl (7.0-11.0); MONO # 0.5 (0.1-0.6); MONO % 5.6 % (1.0-6.0); WHITE BLOOD COUNT 8.8 10^3/ul (4.5-11.0)
[2017-08-11 07:56] LABS: ALB/GLOB RATIO 1.1 (1.1-1.8); BILIRUBIN,TOTAL 0.7 mg/dL (0.2-1.3); CALCIUM 9.2 mg/dL (8.4-10.5); PHOSPHOROUS 2.8 mg/dL (2.5-4.5); POTASSIUM 4.3 mmol/L (3.6-5.0); TOTAL PROTEIN 6.5 g/dL (5.8-8.3)
[2017-08-11] MEDS: Levothyroxine 50 MCG TAB PO SCH (08:24)
[2017-08-11] MEDS: Multivitamin Vitamin B Complex (Nephro-Vite) Tab PO SCH (08:24)
[2017-08-11] MEDS: Pantoprazole 40 mg EC Tab PO SCH (08:24)
[2017-08-11] MEDS: Insulin Lispro 1 UNITS/0.01 ML SC SCH ×3 (08:25→17:57)
[2017-08-11] MEDS: Ergocalciferol 50,000 Intl Units Cap PO SCH (11:04)
--- NOTE | 2017-08-11 15:16 | CP.PCM.PN ---
Subjective - Date & Time of Evaluation Date of Evaluation: 08/11/17 Time of Evaluation: 15:14 - Subjective Subjective: Follow up Nephrology Consultation: Assessment: stable Acute Kidney Injury (N17.9) possibly hemodynamic, cardio-renal, likely ATN: improving Fluid overload/dCHF exacerbation, moderate pulmonary HTN Pleural effusion s/p diagnostic and therapeutic thoracocentesis Hypothermia, hypothyroidism Diabetic chronic Kidney Disease (E11.22) Hypertensive Chronic Kidney Disease (I12.9) Chronic Kidney Disease (N18.4 ) Stage 4 with 500 mg proteinuria (R80.9) likely due to DM/HTN Anemia (D64.9), Hyperphosphatemia (E83.39), HTN (I12.9), vit d def with sec hyperparathyroidism respi acidosis Obesity Plan No acute need for renal replacement therapy at this time as good UOP and cr better Hypertension control with meds as ordered. Patient not on ACEI/ARB due to KYLAH. resume home meds Monitor Input/Output, daily weights and renal function with basic metabolic panel started iron supplements, nephrovite and phos binders, Vit D weekly given IV iron and had received sc aransep continue with lasix to 40 mg bid work up for pleural effusion ongoing GN work up all neg pt stable from renal perspective. she was advised to f/up with me in 1 week Dose meds/antibiotics for reduced GFR. Avoid fleets enema/magnesium based laxatives. Avoid nephrotoxins/NSAIDs/ iodinated contrast (unless needed emergently) Glycemic control Further work up/management as per primary team Thanks for allowing me to participate in care of your patient. Please call if any Qs. d/w team Dr Myles Zhong Office: [phone] Chief Complaint; none today HPI: Pt is a 77 F with hx of diabetes Mellitus ( 35 years), hypertension (many years), CHF, CKD presented with complaints of shortness of breath and found to have hypothermia and shock state. renal consulted for CKD management. she was on inotropes, also IV synthroid. Denies chest pain, palpitation, feels better with shortness of breath, no leg swelling. denies nausea or epigastric pain had low BP when came in ER. Physical Examination: General Appearance: Comfortable, in no acute respiratory distress, co-operative . Vitals reviewed and noted as below Head; Atraumatic, normocephalic ENT: no ulcers no thrush. Tongue is midline. Oropharynx: no rash or ulcers. EYES: Pupils are equal, round and reactive to light accommodation. Eye muscles and extraocular movement intact. Sclera is anicteric. Neck; supple no lymphadenopathy, no thyromegaly or bruit Lungs: Normal respiratory rate/effort. Breath sounds bilateral decreased at b/l bases with crackles Heart: Normal rate. s1s2 normal. No rub or gallop. Extremities: 1+ edema. No varicose veins Neurological: Patient is alert, awake and oriented to person, place and time. No focal deficit. Strength bilateral appropriate and equal Skin: Warm and dry. Normal turgor. No rash. Palpitation: Normal elasticity for age Abdomen: Abdomen is soft. Bowel sounds +. There is no epigastric abdominal tenderness, no guarding/rigidity no organomegaly Psych: limited insight and normal affect/mood MSK: no joint tenderness or swelling. Digits and nails normal, no deformity : kidney or bladder not palpable Labs/imaging reviewed. Past medical history, past surgical history, family history, social history, allergy reviewed and noted as below Family hx: no hx of CKD. Rest non-contributory renal sono: unremarkable UA 100 protein and 500 mg/gr cr on spot quantification echo: normal LVEF, moderate pulm HTN Objective - Vital Signs/Intake and Output Vital Signs (last 24 hours): Temp Pulse Resp BP Pulse Ox 98.2 F 66 20 139/67 93 L 08/11/17 08:50 08/11/17 14:31 08/11/17 08:50 08/11/17 14:31 08/11/17 08:50 Intake and Output: 08/11/17 08/11/17 06:59 18:59 Intake Total 180 Balance 180 - Medications Medications: Current Medications Acetaminophen (Tylenol 325mg Tab) 650 mg PO Q6H PRN PRN Reason: Pain, Mild (1-3) Last Admin: 08/09/17 23:08 Dose: 650 mg Carvedilol (Coreg) 12.5 mg PO BID [facility] Last Admin: 08/11/17 11:06 Dose: 12.5 mg Cephalexin Monohydrate (Keflex) 500 mg PO Q8 [facility] PRN Reason: Protocol Last Admin: 08/11/17 14:31 Dose: 500 mg Ergocalciferol (Drisdol 50,000 Intl Units Cap) 1 cap PO WED [facility] Last Admin: 08/11/17 11:04 Dose: 1 cap Ferrous Gluconate (Fergon) 324 mg PO TID [facility] Last Admin: 08/11/17 14:31 Dose: 324 mg Furosemide (Lasix) 40 mg PO BID [facility] Last Admin: 08/11/17 11:06 Dose: 40 mg Heparin Sodium (Porcine) (Heparin) 5,000 units SC Q12 [facility] PRN Reason: Protocol Last Admin: 08/11/17 11:07 Dose: 5,000 units Hydralazine HCl (Apresoline) 25 mg PO QID [facility] Last Admin: 08/11/17 14:31 Dose: 25 mg Insulin Detemir (Levemir) 12 unit SC HS [facility] Last Admin: 08/10/17 21:15 Dose: Not Given Insulin Human Lispro (Humalog Low) 0 units SC ACHS [facility] PRN Reason: Protocol Last Admin: 08/11/17 12:14 Dose: Not Given Insulin Human Lispro (Humalog) 6 units SC AC [facility] Last Admin: 08/11/17 12:01 Dose: 6 units Levothyroxine Sodium (Synthroid) 50 mcg PO ACB [facility] Last Admin: 08/11/17 08:24 Dose: 50 mcg Metronidazole (Flagyl) 500 mg PO Q8 [facility] PRN Reason: Protocol Last Admin: 08/11/17 14:31 Dose: 500 mg Pantoprazole Sodium (Protonix Ec Tab) 40 mg PO ACB [facility] Last Admin: 08/11/17 08:24 Dose: 40 mg Vitamin B Complex/Vit C/Folic Acid (Nephro-David) 1 tab PO 0800 [facility] Last Admin: 08/11/17 08:24 Dose: 1 tab - Labs Labs: 08/11/17 07:10 08/11/17 07:10 PT 13.6 SECONDS (9.4-12.5) H 08/03/17 11:44 INR 1.23 (0.93-1.08) H 08/03/17 11:44 APTT 34.3 Seconds (25.1-36.5) 08/03/17 11:44
--- NOTE | 2017-08-11 19:03 | CP.PCM.PN ---
<Rafita Mckinney - Last Filed: 08/11/17 19:00> Subjective - Date & Time of Evaluation Date of Evaluation: 08/11/17 Time of Evaluation: 07:30 - Subjective Subjective: Rafita Mckinney DO PGY1 - Internal Medicine Progress Note Patient seen and examined at bedside. No events overnight. Patient has no new complaints. She is still weak from deconditioning, requiring assistance, DME, and/or therapy, pending approval for any of the above prior to discharge. She denies any new CP, SOB, N/V/D/C, abdominal pain, fevers, chills, dysuria. Objective - Vital Signs/Intake and Output Vital Signs (last 24 hours): Temp Pulse Resp BP Pulse Ox 97.3 F L 67 20 134/62 89 L 08/11/17 17:19 08/11/17 17:56 08/11/17 17:19 08/11/17 17:56 08/11/17 17:19 - Medications Medications: Current Medications Acetaminophen (Tylenol 325mg Tab) 650 mg PO Q6H PRN PRN Reason: Pain, Mild (1-3) Last Admin: 08/09/17 23:08 Dose: 650 mg Carvedilol (Coreg) 12.5 mg PO BID [facility] Last Admin: 08/11/17 17:56 Dose: 12.5 mg Cephalexin Monohydrate (Keflex) 500 mg PO Q8 [facility] PRN Reason: Protocol Last Admin: 08/11/17 14:31 Dose: 500 mg Ergocalciferol (Drisdol 50,000 Intl Units Cap) 1 cap PO WED [facility] Last Admin: 08/11/17 11:04 Dose: 1 cap Ferrous Gluconate (Fergon) 324 mg PO TID [facility] Last Admin: 08/11/17 17:56 Dose: 324 mg Furosemide (Lasix) 40 mg PO BID [facility] Last Admin: 08/11/17 17:55 Dose: 40 mg Heparin Sodium (Porcine) (Heparin) 5,000 units SC Q12 [facility] PRN Reason: Protocol Last Admin: 08/11/17 11:07 Dose: 5,000 units Hydralazine HCl (Apresoline) 25 mg PO QID [facility] Last Admin: 08/11/17 17:56 Dose: 25 mg Insulin Detemir (Levemir) 12 unit SC HS [facility] Last Admin: 08/10/17 21:15 Dose: Not Given Insulin Human Lispro (Humalog Low) 0 units SC ACHS [facility] PRN Reason: Protocol Last Admin: 08/11/17 17:58 Dose: Not Given Insulin Human Lispro (Humalog) 6 units SC AC [facility] Last Admin: 08/11/17 17:57 Dose: 6 units Levothyroxine Sodium (Synthroid) 50 mcg PO ACB [facility] Last Admin: 08/11/17 08:24 Dose: 50 mcg Metronidazole (Flagyl) 500 mg PO Q8 [facility] PRN Reason: Protocol Last Admin: 08/11/17 14:31 Dose: 500 mg Pantoprazole Sodium (Protonix Ec Tab) 40 mg PO ACB [facility] Last Admin: 08/11/17 08:24 Dose: 40 mg Vitamin B Complex/Vit C/Folic Acid (Nephro-David) 1 tab PO 0800 [facility] Last Admin: 08/11/17 08:24 Dose: 1 tab - Labs Labs: 08/11/17 07:10 08/11/17 07:10 PT 13.6 SECONDS (9.4-12.5) H 08/03/17 11:44 INR 1.23 (0.93-1.08) H 08/03/17 11:44 APTT 34.3 Seconds (25.1-36.5) 08/03/17 11:44 - Constitutional Appears: Non-toxic, No Acute Distress, Chronically Ill - Head Exam Head Exam: ATRAUMATIC, NORMOCEPHALIC - Eye Exam Eye Exam: EOMI, Normal appearance, PERRL - ENT Exam ENT Exam: Mucous Membranes Moist - Neck Exam Neck Exam: Normal Inspection - Respiratory Exam Respiratory Exam: Decreased Breath Sounds (bilaterl lower lung turner, improving ), Rales (Diffuse, worse in bilateral lower lung turner), NORMAL BREATHING PATTERN - Cardiovascular Exam Cardiovascular Exam: REGULAR RHYTHM, +S1, +S2 - GI/Abdominal Exam GI & Abdominal Exam: Soft, Normal Bowel Sounds. absent: Tenderness - Extremities Exam Extremities Exam: Pedal Edema (2-3+ to knees). absent: Calf Tenderness Additional comments: Still has some edema in b/l UE, though decreased since yesterday - Neurological Exam Neurological Exam: Alert, Awake, Oriented x3 - Psychiatric Exam Psychiatric exam: Normal Affect, Normal Mood - Skin Skin Exam: Dry, Intact, Normal Color, Warm Assessment and Plan - Assessment and Plan (Free Text) Assessment: 77 yo F with PMH of HTN, IDDM, CHF, CKD presents to ER with hypoglycemia, lethargy; noted to be hypothermic, bradycardic and in shock. Clinically improving, though with large pleural effusion noted on echo; now diuresing well Plan 1. Pleural effusion s/p thoracentesis - improving clinically - Likely 2/2 CHF vs acute renal failure with proteinura - Patient is s/p thoracentesis of the right chest on 08/06, with 1250 mL drawn off; sent for cytology, total protein, LDH, glucose, and cell count - Patient still with decreased breath sounds and rales on exam, though improving. No orthopnea. - Continue PO lasix - IR on consult; appreciate recs 2. Urinary tract infection - UA significant for trace LE, few bacteria, and yeast; UCx significant for E coli, BCx negative after 2 days; procal low - Hypothermia resolved, leukocytosis resolved - Switched to PO Keflex, continue for 3 more days (total 5) 3. C diff Diarrhea - resolved - Patient no longer having active diarrhea, but on initial diagnosis, did have diarrhea and antigen positive C diff studies - Continue PO flagyl for 5 more days (total 10) 4. Hypothyroidism - Continue PO levothyroxine 50mcg daily - Endocrinology on consult, appreciate recs 5. IDDM - Patient presented with hypoglycemia, now resolved - Insulin regimen adjusted by endocrinology; continue levimir 12u HS and humalog 6u AC - Continue SSI low - Accucheck ACHS - Endocrinology on consult, appreciate recs 6. h/o HTN - BP now well controlled - Continue home coreg and hydralazine; continue Lasix 40 PO BID - Holding home ACEi in setting of KYLAH; consider resuming instead of hydralazine when renal function stabilizes - Continue to monitor 7. h/o CHF - Echo significant for normal LVEF, reversible grade III diastolic dysfunction, and large left pleural effusion - Diuresing well on PO lasix though still fluid overloaded - Continue Lasix 40mg PO BID - Resume BB; continue to hold ACEi in setting of KYLAH on CKD - Daily weight - Strict I&O 8. KYLAH on CKD stage V - improving - No baseline labs to compare; renal function continues to improve - Patient continues to diurese well, likely 2/2 lasix and polyuric phase of ATN - Monitor I&O - Nephro on consult, appreciate recs 9. Anemia - Likely 2/2 CKD vs chronic disease vs iron deficiency vs mixed etiology - H&H improving; continue PO iron - FOBT pending - Continue to monitor 10. Deconditioning - Requested PT evaluation and treatment; recommend EDA vs HWS; patient is from [place] and does not have coverage for either of those services, or for DME. Pending approval prior to discharge. - Patient does not qualify for [facility] oxygen therapy GI/DVT Ppx - Protonix and Heparin Patient seen, discussed, and reviewed with attending <Amanda Harris - Last Filed: 08/13/17 07:42> Objective - Vital Signs/Intake and Output Vital Signs (last 24 hours): Temp Pulse Resp BP Pulse Ox 97.2 F L 68 19 138/65 94 L 08/12/17 16:00 08/12/17 17:12 08/12/17 16:00 08/12/17 17:12 08/12/17 16:00 - Labs Labs: 08/12/17 05:30 08/12/17 05:30 PT 13.6 SECONDS (9.4-12.5) H 08/03/17 11:44 INR 1.23 (0.93-1.08) H 08/03/17 11:44 APTT 34.3 Seconds (25.1-36.5) 08/03/17 11:44 Attending/Attestation - Attestation I have personally seen and examined this patient.: Yes I have fully participated in the care of the patient.: Yes I have reviewed all pertinent clinical information, including history, physical exam and plan: Yes Notes (Text): 08/13/17 07:40 Patient was seen and examined with medical records library professor. 77 year old female with past medical history of hypertension, diabetes and CKD was admitted with with altered mental status. She was found to have s hypoglycemia, hypothermia, bradycardia and hypotension .CXR showed pulmonary vascular congestion consistent with CHF and echocardiogram showed diastolic dysfunction and pleural effusion.She underwent thoracocentesis on Wednesday. Patient is having good good diuresis on oral lasix, renal functions are improving.Creatinin is stable. Diarrhea has improved, on oral Metronidazole for Clostridium dif colitis. Patient hypoxia is improved.Patient is on room air and is ambulatory. Management plan was discussed in detail with patient Education was provided.
--- NOTE | 2017-08-11 21:53 | PN ---
DATE: 08/11/2017 REASON FOR CONSULTATION AND FOLLOWUP: Rule out congestive heart failure, hypoglycemia, admitted with mental status changes, status post thoracentesis. SUBJECTIVE: The patient denies any chest pain or shortness of breath, lying flat in the bed. OBJECTIVE: GENERAL: Not in apparent distress. VITAL SIGNS: As follows, temperature afebrile, heart rate *------*, blood pressure 139/63. HEENT: PERRLA, intact. NECK: Supple. No carotid bruits or thyromegaly. CHEST: Clear to auscultation. HEART: S1 and S2, regular. ABDOMEN: Soft. EXTREMITIES: Clubbing and cyanosis negative. LABORATORY DATA: Blood workup as follows; WBC 8.8, hemoglobin *------*, hematocrit 36, and platelet count 419. Chemistries showed sodium 130, potassium 4.3, chloride 97, carbon dioxide 30, anion gap of 15, BUN 52, and creatinine 1.9. IMPRESSION: Acute kidney injury, chronic renal insufficiency, baseline creatinine around 2.5, kidney function got worse, now is improving, creatinine is 1.5. History of large peripleural effusion status post thoracentesis, preserved left ventricular function, pulmonary hypertension, right-sided failure. Echocardiogram showed preserved left ventricular function. RECOMMENDATIONS: I recommended followup renal function. Avoid nephrotoxic medications. Continue Coreg. Continue hydralazine. Continue DVT prophylaxis. Continue p.o. Lasix. Renal function is improving. We will follow with you. Thank you, Dr. Berry for providing us the opportunity in taking care of the patient, Danielle Renner. We will follow with you. Amanda Matthews MD
[2017-08-11] MEDS: Insulin Detemir 100 units/ml Vial (Levemir) SC SCH ×2 (22:44→22:48)
--- NOTE | 2017-08-12 02:25 | PN ---
DATE: ENDO FOLLOWUP NOTE LOCATION: In the room 569. SUBJECTIVE: This is a 77-year-old female with recent uncontrolled type 2 insulin-requiring diabetes, diabetes now being followed closely for metabolic management. Her glycemic levels are fluctuating, but much improved at this time, and the latest glucose levels have ranged from 175 to 183 and 187 mg/dL. It was 216 as fasting this morning as noted. She also remains clinically euthyroid with early evidence of hypothyroxinemia on admission and has improved also accordingly as noted with a low-dose levothyroxine replacement therapy as given. Her latest chemistry showed a BUN of 52, sodium 138, potassium 4.3, chloride 97, CO2 of 30, glucose 220, and creatinine 1.9. So at this time, we will modify once again her basal and bolus insulin regimen and increase the Levemir to 14 units subcu at bedtime daily to start tomorrow night as noted. We will continue also the low-dose correction scale using Humalog insulin as given. So, we will also continue the low-dose prandial insulin with Humalog given as 6 units subcu t.i.d. before meals as ordered and also because of the variability of her oral intake as noted. We will follow with you. Jessica Andujar MD
[2017-08-12] MEDS: Insulin Lispro (humaLOG) LOW Coverage SC SCH ×4 (03:56→17:12)
[2017-08-12 06:59] LABS: BASO # 0.02 K/mm3 (0.0-2.0); BASO % 0.2 % (0.0-3.0); EOS # 0.2 (0.0-0.7); EOS % 1.9 % (1.5-5.0); GRAN # 6.47 (1.4-6.5); GRAN % 66.9 % (50.0-68.0); HEMATOCRIT 36.1 % (36.0-48.0); LYMPH # 2.4 (1.2-3.4); LYMPH % 24.3 % (22.0-35.0); MEAN CELL VOLUME 76.5 fl (80.0-105.0); MEAN CORPUSCULAR HEMOGLOBIN 22.5 pg (25.0-35.0); MEAN CORPUSCULAR HGB CONC 29.4 g/dl (31.0-37.0); MEAN PLATELET VOLUME 10.7 fl (7.0-11.0); MONO # 0.7 (0.1-0.6); MONO % 6.7 % (1.0-6.0); WHITE BLOOD COUNT 9.7 10^3/ul (4.5-11.0)
[2017-08-12 07:46] LABS: BILIRUBIN,TOTAL 0.5 mg/dL (0.2-1.3); POTASSIUM 4.4 mmol/L (3.6-5.0); TOTAL PROTEIN 6.5 g/dL (5.8-8.3)
[2017-08-12] MEDS: Insulin Lispro 1 UNITS/0.01 ML SC SCH ×2 (08:30→12:30)
[2017-08-12] MEDS: Levothyroxine 50 MCG TAB PO SCH (08:53)
[2017-08-12] MEDS: Pantoprazole 40 mg EC Tab PO SCH (08:53)
[2017-08-12] MEDS: Multivitamin Vitamin B Complex (Nephro-Vite) Tab PO SCH (08:55)
[2017-08-12 09:00] VITALS: O2SAT 94
--- NOTE | 2017-08-12 12:20 | CP.PCM.PN ---
Subjective - Date & Time of Evaluation Date of Evaluation: 08/12/17 Time of Evaluation: 12:19 - Subjective Subjective: Follow up Nephrology Consultation: Assessment: stable Acute Kidney Injury (N17.9) possibly hemodynamic, cardio-renal, likely ATN: improving Fluid overload/dCHF exacerbation, moderate pulmonary HTN Pleural effusion s/p diagnostic and therapeutic thoracocentesis Hypothermia, hypothyroidism Diabetic chronic Kidney Disease (E11.22) Hypertensive Chronic Kidney Disease (I12.9) Chronic Kidney Disease (N18.4 ) Stage 4 with 500 mg proteinuria (R80.9) likely due to DM/HTN Anemia (D64.9), Hyperphosphatemia (E83.39), HTN (I12.9), vit d def with sec hyperparathyroidism respi acidosis Obesity Plan No acute need for renal replacement therapy at this time as good UOP and cr better Hypertension control with meds as ordered. Patient not on ACEI/ARB due to KYLAH. will consider them as outpt once volume status optimized. Monitor Input/Output, daily weights and renal function with basic metabolic panel started iron supplements, nephrovite and phos binders, Vit D weekly given IV iron and had received sc aransep continue with lasix to 40 mg bid work up for pleural effusion ongoing GN work up all neg pt stable from renal perspective. she was advised to f/up with me in 1 week Dose meds/antibiotics for reduced GFR. Avoid fleets enema/magnesium based laxatives. Avoid nephrotoxins/NSAIDs/ iodinated contrast (unless needed emergently) Glycemic control Further work up/management as per primary team Thanks for allowing me to participate in care of your patient. Please call if any Qs. d/w team Dr Myles Zhong Office: [phone] Chief Complaint; none today HPI: Pt is a 77 F with hx of diabetes Mellitus ( 35 years), hypertension (many years), CHF, CKD presented with complaints of shortness of breath and found to have hypothermia and shock state. renal consulted for CKD management. she was on inotropes, also IV synthroid. Denies chest pain, palpitation, feels better with shortness of breath, no leg swelling. denies nausea or epigastric pain had low BP when came in ER. Physical Examination: General Appearance: Comfortable, in no acute respiratory distress, co-operative . Vitals reviewed and noted as below Head; Atraumatic, normocephalic ENT: no ulcers no thrush. Tongue is midline. Oropharynx: no rash or ulcers. EYES: Pupils are equal, round and reactive to light accommodation. Eye muscles and extraocular movement intact. Sclera is anicteric. Neck; supple no lymphadenopathy, no thyromegaly or bruit Lungs: Normal respiratory rate/effort. Breath sounds bilateral decreased at b/l bases with crackles Heart: Normal rate. s1s2 normal. No rub or gallop. Extremities: 1+ edema. No varicose veins Neurological: Patient is alert, awake and oriented to person, place and time. No focal deficit. Strength bilateral appropriate and equal Skin: Warm and dry. Normal turgor. No rash. Palpitation: Normal elasticity for age Abdomen: Abdomen is soft. Bowel sounds +. There is no epigastric abdominal tenderness, no guarding/rigidity no organomegaly Psych: limited insight and normal affect/mood MSK: no joint tenderness or swelling. Digits and nails normal, no deformity : kidney or bladder not palpable Labs/imaging reviewed. Past medical history, past surgical history, family history, social history, allergy reviewed and noted as below Family hx: no hx of CKD. Rest non-contributory renal sono: unremarkable UA 100 protein and 500 mg/gr cr on spot quantification echo: normal LVEF, moderate pulm HTN Objective - Vital Signs/Intake and Output Vital Signs (last 24 hours): Temp Pulse Resp BP Pulse Ox 97.8 F 72 20 126/60 94 L 08/12/17 08:00 08/12/17 10:24 08/12/17 08:00 08/12/17 10:24 08/12/17 08:00 Intake and Output: 08/12/17 08/12/17 06:59 18:59 Intake Total 660 Balance 660 - Medications Medications: Current Medications Acetaminophen (Tylenol 325mg Tab) 650 mg PO Q6H PRN PRN Reason: Pain, Mild (1-3) Last Admin: 08/11/17 22:49 Dose: 650 mg Carvedilol (Coreg) 12.5 mg PO BID [facility] Last Admin: 08/12/17 10:24 Dose: 12.5 mg Cephalexin Monohydrate (Keflex) 500 mg PO Q8 [facility] PRN Reason: Protocol Last Admin: 08/12/17 05:26 Dose: 500 mg Ergocalciferol (Drisdol 50,000 Intl Units Cap) 1 cap PO WED [facility] Last Admin: 08/11/17 11:04 Dose: 1 cap Ferrous Gluconate (Fergon) 324 mg PO TID [facility] Last Admin: 08/12/17 10:24 Dose: 324 mg Furosemide (Lasix) 40 mg PO BID [facility] Last Admin: 08/12/17 10:24 Dose: 40 mg Hydralazine HCl (Apresoline) 25 mg PO QID [facility] Last Admin: 08/12/17 10:24 Dose: 25 mg Insulin Detemir (Levemir) 14 unit SC HS [facility] Insulin Human Lispro (Humalog Low) 0 units SC ACHS [facility] PRN Reason: Protocol Last Admin: 08/12/17 08:53 Dose: Not Given Insulin Human Lispro (Humalog) 6 units SC AC [facility] Last Admin: 08/12/17 08:30 Dose: 6 units Levothyroxine Sodium (Synthroid) 50 mcg PO ACB [facility] Last Admin: 08/12/17 08:53 Dose: 50 mcg Metronidazole (Flagyl) 500 mg PO Q8 [facility] PRN Reason: Protocol Last Admin: 08/12/17 05:26 Dose: 500 mg Pantoprazole Sodium (Protonix Ec Tab) 40 mg PO ACB [facility] Last Admin: 08/12/17 08:53 Dose: 40 mg Vitamin B Complex/Vit C/Folic Acid (Nephro-David) 1 tab PO 0800 [facility] Last Admin: 08/12/17 08:55 Dose: 1 tab - Labs Labs: 08/12/17 05:30 08/12/17 05:30 PT 13.6 SECONDS (9.4-12.5) H 08/03/17 11:44 INR 1.23 (0.93-1.08) H 08/03/17 11:44 APTT 34.3 Seconds (25.1-36.5) 08/03/17 11:44
--- NOTE | 2017-08-12 14:48 | PN ---
DATE: ENDO FOLLOWUP NOTE LOCATION: Room 569. SUBJECTIVE: This is a 77-year-old female with recent uncontrolled type 2 insulin-requiring diabetes now being followed closely for metabolic management. Her glycemic levels are fluctuating as noted and the latest glucose values have ranged from 214 mg/dL to 215 mg/dL. It was 183 last night at bedtime. The latest chemistry showed BUN of 47, sodium of 139, potassium of 4.4, chloride of 98, CO2 25, and creatinine 1.9. So at this time, we will modify once again her basal and bolus insulin regimen and increase the Humalog to 8 units subcu t.i.d. before meals to start at dinner time today as ordered. We will continue the low-dose correction scale using Humalog insulin as given. We will titrate incrementally as indicated to optimize metabolic control. We will also increase the Levemir to 18 units subcu at bedtime daily to start tonight. We will obtain serial chemistries and supplement accordingly as needed. We will follow and advice accordingly. Jessica Andujar MD
[2017-08-12] MEDS ORDERED: Insulin Lispro 1 UNITS/0.01 ML SC SCH (16:30)
[2017-08-12 16:49] VITALS: BP 138/65; PULSE 68; RESP 19; TEMP 97.2
--- NOTE | 2017-08-12 16:50 | CP.PCM.DIS ---
Provider - Provider Date of Admission: 08/03/17 12:41 Attending physician: Amanda Harris MD Consults: Cardio Nephrology Interventional Radiology Time Spent in preparation of Discharge (in minutes): 55 Diagnosis - Discharge Diagnosis (1) Hypothyroidism Status: Acute (2) Anasarca Status: Acute (3) Diabetes Status: Acute (4) Acute kidney injury Status: Acute (5) Bradycardia Status: Acute (6) CHF (congestive heart failure) Status: Acute (7) Hypoglycemia Status: Acute Hospital Course - Lab Results Lab Results: Micro Results 08/07/17 14:50 Stool C. difficile Antigen & Toxin A,B (M - Final 08/06/17 10:00 Stool C. difficile Antigen & Toxin A,B (M - Final 08/04/17 13:00 Urine Urine Culture - Final Escherichia Coli 08/03/17 21:33 Naris MRSA Culture (Admit) - Final MRSA NOT DETECTED 08/05/17 00:39 Stool C. difficile Antigen & Toxin A,B (M - Final Most Recent Lab Values WBC 9.7 10^3/ul (4.5-11.0) 08/12/17 05:30 RBC 4.72 10^6/uL (3.5-6.1) 08/12/17 05:30 Hgb 10.6 g/dL (12.0-16.0) L 08/12/17 05:30 Hct 36.1 % (36.0-48.0) 08/12/17 05:30 MCV 76.5 fl (80.0-105.0) L 08/12/17 05:30 MCH 22.5 pg (25.0-35.0) L 08/12/17 05:30 MCHC 29.4 g/dl (31.0-37.0) L 08/12/17 05:30 RDW 21.0 % (11.5-14.5) H 08/12/17 05:30 Plt Count 425 10^3/uL (120.0-450.0) 08/12/17 05:30 MPV 10.7 fl (7.0-11.0) 08/12/17 05:30 Gran % 66.9 % (50.0-68.0) 08/12/17 05:30 Lymph % (Auto) 24.3 % (22.0-35.0) 08/12/17 05:30 [place] % (Auto) 6.7 % (1.0-6.0) H 08/12/17 05:30 Eos % (Auto) 1.9 % (1.5-5.0) 08/12/17 05:30 Baso % (Auto) 0.2 % (0.0-3.0) 08/12/17 05:30 Gran # 6.47 (1.4-6.5) 08/12/17 05:30 Lymph # 2.4 (1.2-3.4) 08/12/17 05:30 [place] # 0.7 (0.1-0.6) H 08/12/17 05:30 Eos # 0.2 (0.0-0.7) 08/12/17 05:30 Baso # 0.02 K/mm3 (0.0-2.0) 08/12/17 05:30 PT 13.6 SECONDS (9.4-12.5) H 08/03/17 11:44 INR 1.23 (0.93-1.08) H 08/03/17 11:44 APTT 34.3 Seconds (25.1-36.5) 08/03/17 11:44 D-Dimer, Quantitative 491 ng/mL (0-243) H 08/03/17 11:44 pCO2 58 mm/Hg (35-45) H 08/03/17 12:55 pO2 101.0 mm/Hg (80-100) H 08/03/17 12:55 HCO3 30.6 mmol/L (21-28) H 08/03/17 12:55 ABG pH 7.33 (7.35-7.45) L 08/03/17 12:55 ABG Total CO2 32.4 mmol.L (22-28) H 08/03/17 12:55 ABG O2 Saturation 99.1 % (95-98) H 08/03/17 12:55 ABG O2 Content 12.8 ML/dl (15-23) L 08/03/17 12:55 ABG Base Excess 3.8 mmol/L (-2.0-3.0) H 08/03/17 12:55 ABG Hemoglobin 9.3 g/dL (11.7-17.4) L 08/03/17 12:55 ABG Carboxyhemoglobin 1.8 % (0.5-1.5) H 08/03/17 12:55 POC ABG HHb (Measured) 0.9 % (0-5) 08/03/17 12:55 ABG Methemoglobin 0.8 % (0.0-3.0) 08/03/17 12:55 ABG O2 Capacity 12.9 mL/dl (16-24) L 08/03/17 12:55 VBG pH 7.28 (7.32-7.43) L 08/03/17 10:30 VBG pCO2 73.0 (40-60) H* 08/03/17 10:30 VBG HCO3 34.3 mmol/l (21-28) H 08/03/17 10:30 VBG Total CO2 36.5 mmol.L (22-28) H 08/03/17 10:30 VBG O2 Sat (Calc) 96.5 % (40-65) H 08/03/17 10:30 VBG Base Excess 5.1 mmol/L (0.0-2.0) H 08/03/17 10:30 VBG Potassium 4.8 mmol/L (3.6-5.2) 08/03/17 10:30 Hgb O2 Saturation 96.5 % (95.0-98.0) 08/03/17 12:55 Sodium 140.0 mmol/L (132-148) 08/03/17 10:30 Chloride 104.0 mmol/L (98-107) 08/03/17 10:30 Glucose 91 mg/dl (65-105) 08/03/17 10:30 Lactate 1.1 mmol/L (0.7-2.1) 08/03/17 10:30 FiO2 60.0 % 08/03/17 12:55 Sodium 139 mmol/L (132-148) 08/12/17 05:30 Potassium 4.4 mmol/L (3.6-5.0) 08/12/17 05:30 Chloride 98 mmol/L (98-107) 08/12/17 05:30 Carbon Dioxide 30 mmol/L (21-33) 08/12/17 05:30 Anion Gap 16 (10-20) 08/12/17 05:30 BUN 47 mg/dL (7-21) H 08/12/17 05:30 Creatinine 1.9 mg/dl (0.7-1.2) H 08/12/17 05:30 Est GFR ( Amer) 31 08/12/17 05:30 Est GFR (Non-Af Amer) 26 08/12/17 05:30 POC Glucose (mg/dL) 215 mg/dL (65-110) H 08/12/17 12:05 Random Glucose 251 mg/dL (70-110) H 08/12/17 05:30 Hemoglobin A1c 8.4 % (4.2-6.5) H 08/05/17 06:20 Calcium 9.0 mg/dL (8.4-10.5) 08/12/17 05:30 Phosphorus 2.8 mg/dL (2.5-4.5) 08/11/17 07:10 Magnesium 1.8 mg/dL (1.7-2.2) 08/11/17 07:10 Iron 14 ug/dL (45-180) L 08/03/17 13:00 TIBC 314 ug/dL (265-497) 08/03/17 13:00 % Saturation 4 % (20-55) L 08/03/17 13:00 Ferritin 20.9 ng/mL 08/03/17 13:00 Total Bilirubin 0.5 mg/dL (0.2-1.3) 08/12/17 05:30 AST 38 U/L (14-36) H D 08/12/17 05:30 ALT 26 U/L (7-56) 08/12/17 05:30 Alkaline Phosphatase 162 U/L (38-126) H 08/12/17 05:30 Lactate Dehydrogenase 604 U/L (333-699) 08/09/17 05:30 Troponin I < 0.01 ng/mL 08/09/17 15:15 NT-Pro-B Natriuret Pep 4220 pg/mL (0-450) H 08/03/17 10:30 Total Protein 6.5 g/dL (5.8-8.3) 08/12/17 05:30 Total Protein (PEP) 6.2 g/dL (6.1-8.1) 08/05/17 06:20 Albumin 3.3 g/dL (3.0-4.8) 08/12/17 05:30 Albumin (PEP) 3.1 g/dL (3.8-4.8) L 08/05/17 06:20 Globulin 3.2 gm/dL 08/12/17 05:30 Albumin/Globulin Ratio 1.0 (1.1-1.8) L 08/12/17 05:30 Dmilg-6-Bmfxyovot 0.4 g/dL (0.2-0.3) H 08/05/17 06:20 Novuy-8-Xmnlxtxio 0.6 g/dL (0.5-0.9) 08/05/17 06:20 Tivr-4-Mlgppmhx 0.4 g/dL (0.4-0.6) 08/05/17 06:20 Cwqp-8-Gnlycscs 0.4 g/dL (0.2-0.5) 08/05/17 06:20 Gamma Globulins 1.3 g/dL (0.8-1.7) 08/05/17 06:20 Abnorm Protein Band 1 TEST NOT PERFORMED 08/05/17 06:20 Abnorm Protein Band 2 TEST NOT PERFORMED 08/05/17 06:20 Abnorm Protein Band 3 TEST NOT PERFORMED 08/05/17 06:20 Triglycerides 78 mg/dL (35-160) 08/05/17 06:20 Cholesterol 114 mg/dL (130-200) L 08/05/17 06:20 LDL Cholesterol Direct < 30 mg/dL (0-129) 08/05/17 06:20 HDL Cholesterol 65 mg/dL (29-60) H 08/05/17 06:20 Lipase 178 U/L (23-300) 08/08/17 07:00 Vitamin B12 835 pg/mL (239-931) 08/03/17 13:00 25-OH Vitamin D Total < 12.8 NG/ML (30.0-100.0) L 08/05/17 06:20 Folate 16.2 ng/mL 08/03/17 13:00 Procalcitonin 0.06 NG/ML (0.19-0.49) L 08/03/17 13:00 Free T4 1.30 ng/dL (0.78-2.19) 08/04/17 06:00 Thyroxine (T4) 6.4 ug/dL (5.5-11.0) 08/04/17 06:00 Free T3 pg/mL 2.40 pg/mL (2.77-5.27) L 08/03/17 13:00 Reverse T3 20 ng/dL (8-25) 08/03/17 13:00 Total T3 0.67 ng/mL (0.97-1.69) L 08/03/17 13:00 TSH 3rd Generation 8.38 mIU/mL (0.46-4.68) H 08/04/17 06:00 PTH Intact Whole [place] 269 pg/mL (14-64) H 08/04/17 10:50 Venous Blood Potassium 4.8 mmol/L (3.6-5.2) 08/03/17 10:30 Urine Color Yellow (YELLOW) 08/04/17 13:30 Urine Appearance Sl cloudy (CLEAR) 08/04/17 13:30 Urine pH 5.0 (4.7-8.0) 08/04/17 13:30 Ur Specific [place] >= 1.030 (1.005-1.035) 08/04/17 13:30 Urine Protein 100 mg/dL (<30 mg/dL) H 08/04/17 13:30 Urine Glucose (UA) Negative mg/dL (NEGATIVE) 08/04/17 13:30 Urine Ketones Negative mg/dL (NEGATIVE) 08/04/17 13:30 Urine Blood Trace-lysed (NEGATIVE) H 08/04/17 13:30 Urine Nitrate Negative (NEGATIVE) 08/04/17 13:30 Urine Bilirubin Small (NEGATIVE) H 08/04/17 13:30 Urine Urobilinogen 0.2 E.U./dL (<1 E.U./dL) 08/04/17 13:30 Ur Leukocyte Esterase Trace [place]/uL (NEGATIVE) H 08/04/17 13:30 Urine RBC 0 - 2 /hpf (0-2) 08/04/17 13:30 Urine WBC 1 - 3 /hpf (0-6) 08/04/17 13:30 Ur Epithelial Cells 3 - 4 /hpf (0-5) 08/04/17 13:30 Calcium Oxalate Crystal Few /hpf 08/04/17 13:30 Urine Bacteria Few (NEG) 08/04/17 13:30 Urine Other Uyeast 08/04/17 13:30 Ur Random Creatinine 333 mg/dL 08/04/17 13:30 U Random Total Protein 297 mg/g creat (21-161) H 08/04/17 13:10 Urine Microalbumin 452.3 mg/L (0.0-16.6) H 08/04/17 13:30 Fluid Source Pleural 08/06/17 21:11 Fluid Appearance Clear (CLEAR) 08/06/17 21:11 Fluid WBC 103.0 /uL (0.0-300.0) 08/06/17 21:11 Fluid RBC 41.0 /uL (0.0-0.0) H 08/06/17 21:11 Fluid Tot Cell Count 100 (0-0) H 08/06/17 21:11 Fluid Neutrophils 19.8 % (0-0) H 08/06/17 21:11 Fluid Lymphocytes 80.2 % (0-0) H 08/06/17 21:11 Fld Monocyte/Macrophag TEST NOT PERFORMED 08/06/17 21:11 Fluid Comment TEST NOT PERFORMED 08/06/17 21:11 Pleural Total Protein <3.0 g/dL 08/06/17 21:11 Pleural LDH 67 U/L 08/06/17 21:11 Pleural Glucose 146 mg/dL 08/06/17 21:11 JUANITA & SPEP Interp See note 08/05/17 06:20 Serum Immunofixation Not detected (Not Detected) 08/05/17 06:20 ANCA Screen Negative (NEGATIVE) 08/05/17 06:20 c-ANCA Titer TNP 08/05/17 06:20 Proteinase 3 (PR3) <1.0 AI (<1.0) 08/05/17 06:20 p-ANCA Titer TNP 08/05/17 06:20 Atypical p-ANCA Titer TNP 08/05/17 06:20 Myeloperoxidase Ab <1.0 AI (<1.0) 08/05/17 06:20 Thyroperoxidase Ab <1 IU/mL (<9) 08/04/17 06:00 Complement C3 79.0 mg/dL (88.0-165.0) L 08/05/17 09:40 Complement C4 25.4 mg/dL (14.0-44.0) 08/05/17 09:40 Tot [employer]/Lambda Ratio 1.92 (1.29-2.55) 08/05/17 06:20 [employer] Light Chain Anal 313 mg/dL (176-443) 08/05/17 06:20 Lambda Light Chain Anal 163 mg/dL (91-240) 08/05/17 06:20 Influenza Typ A,B (EIA) Negative for flu a/b (NEGATIVE) 08/03/17 11:44 - Hospital Course Hospital Course: 77 yo F with PMH of HTN, IDDM, CHF, CKD who initially presented to the ER with hypoglycemia, lethargy; noted to be hypothermic, bradycardic and in shock. Initially admitted to the ICU, on BIPAP and Donnell hugger, and was given IV Abx and stress dose steroids, and placed on dopamine drip. She was also found to be hypothyroid, and was treated with IV synthroid, followed by PO synthroid. As her clinical status improved, she came off the drip, BIPAP, and donnell hugger, and her stress dose steroids were tapered down. Her hospital course was complicated by acute renal failure, with subsequent fluid retention and anasarca , including a large pleural effusion, which was tapped, and noted to be a transudate. Discharge Exam - Head Exam Head Exam: ATRAUMATIC, NORMOCEPHALIC Discharge Plan - Discharge Medications Prescriptions: Ergocalciferol [Drisdol 50,000 Intl Units Cap] 1 cap PO WED #4 cap Ferrous Gluconate [Fergon] 324 mg PO TID #90 tab Furosemide [Lasix] 40 mg PO BID #60 tab hydrALAZINE [Apresoline] 25 mg PO QID #120 tab Levothyroxine [Synthroid] 50 mcg PO ACB #30 tab metroNIDAZOLE [Flagyl] 500 mg PO Q8 4 Days #12 tab Vitamin B Complex/Vit C/Folic [Nephro-David] 1 tab PO 0800 #30 tab - Follow Up Plan Condition: SERIOUS Disposition: HOME/ ROUTINE Instructions: Heart Failure (GEN), Renal Failure Diet (GEN), Diabetes Mellitus Type 2 in Adults (DC), Fall Prevention for Older Adults (GEN), Hypertension (DC) Additional Instructions: 1. Continue to take all medications as prescribed; new paper prescriptions given for vitamin D, Iron, Nephro-David, Lasix, Hydralazine, synthroid, and flagyl 2. Discontinue home Norvasc, instead, increase Hydralazine to four times daily, as in the new prescription 3. Continue to take Flagyl for 4 more days, even if you feel better 4. Follow up with your primary care doctor within one week; you should have a repeat chest x-ray in two weeks to monitor for resolution/improvement in the fluid in the lungs, you should also have repeat bloodwork to monitor your kidney function, blood sugar, and thyroid levels 5. Maintain a diet low in salt (to avoid fluid overload), low in carbohydrates ( for blood sugar control), and low in cholesterol (to protect your heart) 6. Paper prescription given for walker and outpatient physical therapy 7. For any new or worsening concerns, contact your PCP immediately or return to the ER
[2017-08-12] MEDS ORDERED: Insulin Detemir 100 units/ml Vial (Levemir) SC SCH ×2 (22:00)
--- NOTE | 2017-08-12 22:27 | PN ---
DATE: 08/12/2017 LOCATION: The patient is in room 569, bed 2. REASON FOR CONSULTATION: Followup, rule out congestive heat failure, hypoglycemia, admitted with mental status changes, status post thoracentesis. SUBJECTIVE: The patient is lying comfortably in bed without any cardiac symptoms like chest pain, shortness of breath or palpitations. PHYSICAL EXAMINATION VITAL SIGNS: Blood pressure 138/65, respirations 19, pulse 68, and temperature 97.2. HEENT: Head is normocephalic. Eyes; pupils are normal. Conjunctivae slightly pale. NECK: JVP is low. Carotids are equal. THORAX: AP diameter normal. LUNGS: No significant rales. CARDIOVASCULAR: S1 and S2. ABDOMEN: Soft. No organomegaly. EXTREMITIES: Normal. No clubbing. No cyanosis. DIAGNOSES: Acute kidney injury, chronic renal insufficiency, baseline creatinine of 2.5, kidney function got worse, but now it is improving, today creatinine 1.9, history of large pleural effusion status post thoracentesis, preserved LV function, pulmonary hypertension, right-sided failure. On echo, left ventricular systolic function is normal. PLAN: The patient is on Coreg 12.5 b.i.d., hydralazine 25 mg p.o. four times a day, ferrous gluconate 324 mg p.o. t.i.d., insulin as ordered, Keflex 500 mg q. 8 hours, furosemide 40 b.i.d., Protonix 40 daily, Synthroid 50 mcg p.o. daily. We will continue present therapy and we will follow with you. Amanda Ballard MD
== END 2017-08-12 18:45 | disposition home or self-care (01) | DRG 544 ==
LOC: ED 10:14 → ERH 12:41 → ICU 13:46 → 2RSO 08-04 15:34 → 5RNO 08-10 22:47
PROVIDERS: ADMIT Internal Medicine; ATTEND Internal Medicine
PROC: 5A09357 Assistance with Respiratory Ventilation, Less than 24 Consecutive Hours, Continuous Positive Airway Pressure (ICD-10-PCS; 2017-08-04)
PROC: 0W993ZZ Drainage of Right Pleural Cavity, Percutaneous Approach (ICD-10-PCS; principal; 2017-08-06 15:00)
DX: I13.2 Hypertensive heart and chronic kidney disease with heart failure and with stage 5 chronic kidney disease, or end stage renal disease (principal); I50.33 Acute on chronic diastolic (congestive) heart failure; N17.0 Acute kidney failure with tubular necrosis; R57.9 Shock, unspecified; A04.72 Enterocolitis due to Clostridium difficile, not specified as recurrent; J90 Pleural effusion, not elsewhere classified; I08.1 Rheumatic disorders of both mitral and tricuspid valves; E83.39 Other disorders of phosphorus metabolism; E11.649 Type 2 diabetes mellitus with hypoglycemia without coma; E11.319 Type 2 diabetes mellitus with unspecified diabetic retinopathy without macular edema; E87.2 Acidosis; N39.0 Urinary tract infection, site not specified; R09.02 Hypoxemia; E11.22 Type 2 diabetes mellitus with diabetic chronic kidney disease; N18.5 Chronic kidney disease, stage 5; I27.20 Pulmonary hypertension, unspecified; E03.9 Hypothyroidism, unspecified; R00.1 Bradycardia, unspecified; I25.10 Atherosclerotic heart disease of native coronary artery without angina pectoris; N25.81 Secondary hyperparathyroidism of renal origin; D64.9 Anemia, unspecified; E78.5 Hyperlipidemia, unspecified; Z79.4 Long term (current) use of insulin; E66.9 Obesity, unspecified; Z68.31 Body mass index [BMI] 31.0-31.9, adult

== ENCOUNTER 2017-08-28 01:43 | Emergency (ER) | payer MEDICAID, OTHER ==
[2017-08-28 01:57] VITALS: BMI 26.5
[2017-08-28 03:28] LABS: BASO # 0.03 K/mm3 (0.0-2.0); BASO % 0.4 % (0.0-3.0); EOS # 0.1 (0.0-0.7); GRAN # 3.99 (1.4-6.5); GRAN % 57.5 % (50.0-68.0); HEMOGLOBIN 13.2 g/dL (12.0-16.0); LYMPH # 2.3 (1.2-3.4); LYMPH % 32.9 % (22.0-35.0); MEAN CELL VOLUME 80.7 fl (80.0-105.0); MEAN CORPUSCULAR HEMOGLOBIN 23.6 pg (25.0-35.0); MEAN CORPUSCULAR HGB CONC 29.3 g/dl (31.0-37.0); MONO # 0.5 (0.1-0.6); MONO % 7.2 % (1.0-6.0); PLATELET COUNT 210 10^3/uL (120.0-450.0); RBC 5.59 10^6/uL (3.5-6.1); RED CELL DISTRIBUTION WIDTH 23.6 % (11.5-14.5); WHITE BLOOD COUNT 6.9 10^3/ul (4.5-11.0)
[2017-08-28 03:40] LABS: ALBUMIN 3.5 g/dL (3.0-4.8); CALCIUM 8.8 mg/dL (8.4-10.5)
--- NOTE | 2017-08-28 04:15 | ED PDOC ---
Arrival/HPI - General Chief Complaint: High Blood Sugar Time Seen by Provider: 08/28/17 02:05 Historian: Patient - History of Present Illness Narrative History of Present Illness (Text): 08/28/17 03:50 77 year old female, whose past medical history includes, includes diabetes on insulin, hypertension, Chronic kidney disease, and CHF, presents to the emergency department by EMS with her son who witnessed patient become unresponsive. Patient was given 25g of glucose on the field. As per the son, her sugar checked at home showed to be 36. Patient reports she does no remember anything. She states she had a normal dinner yesterday. Patient reports similar hypoglycemic episode in the past. Patient reports urinary frequency due to diuretic, but denies any fever, chills, chest pain, shortness of breath, nausea , vomiting, diarrhea, urinary symptoms, back pain, neck pain, headache, dizziness, or any other complaints. Time/Duration: 1/2 hour Symptom Onset: Sudden Symptom Course: Unchanged Activities at Onset: Light Context: Home Past Medical History - Provider Review Nursing Documentation Reviewed: Yes - Infectious Disease Hx of Infectious Diseases: None - Cardiac Hx Cardiac Disorders: Yes Hx Hypertension: Yes - Pulmonary Hx Respiratory Disorders: No - Neurological Hx Neurological Disorder: No - HEENT Hx HEENT Disorder: No - Renal Hx Renal Failure: Yes - Endocrine/Metabolic Hx Diabetes Mellitus Type 2: Yes - Hematological/Oncological Hx Blood Disorders: No - Integumentary Hx Dermatological Disorder: No - Musculoskeletal/Rheumatological Hx Musculoskeletal Disorders: Yes Hx Arthritis: Yes - Gastrointestinal Hx Gastrointestinal Disorders: No - Genitourinary/Gynecological Hx Genitourinary Disorders: No - Psychiatric Hx Psychophysiologic Disorder: No Hx Substance Use: No - Surgical History Hx Musculoskeletal Surgery: Yes (R ankle) - Anesthesia Hx Anesthesia: Yes Hx Anesthesia Reactions: No Family/Social History - Physician Review Nursing Documentation Reviewed: Yes Family/Social History: No Known Family HX Smoking Status: Never Smoked Hx Alcohol Use: Yes Hx Substance Use: No Allergies/Home Meds Allergies/Adverse Reactions: Allergies No Known Allergies Allergy (Verified 08/03/17 15:33) Home Medications: Home Meds Medication Instructions Recorded Confirmed Carvedilol [Coreg] 12.5 mg PO BID 08/03/17 08/28/17 Insulin Detemir [Levemir] 10 units SQ HS 08/03/17 08/28/17 Insulin Lispro [humALOG] 4 units SQ TID 08/03/17 08/28/17 Pravastatin Sodium [Pravachol] 20 mg PO DAILY 08/03/17 08/28/17 Review of Systems - Physician Review All systems were reviewed & negative as marked: Yes - Review of Systems Constitutional: absent: Fevers, Other (Chills) Respiratory: absent: SOB Cardiovascular: absent: Chest Pain Gastrointestinal: absent: Abdominal Pain, Diarrhea, Nausea, Vomiting Genitourinary Female: Other (frequent urination ). absent: Dysuria, Frequency, Hematuria Musculoskeletal: absent: Back Pain, Neck Pain Neurological: absent: Headache, Dizziness Physical Exam Vital Signs Reviewed: Yes Vital Signs Temp Pulse Resp BP Pulse Ox 08/28/17 09:24 72 18 188/86 H 97 08/28/17 01:44 98.2 F 84 18 146/84 99 Temperature: Afebrile Blood Pressure: Normal Pulse: Regular Respiratory Rate: Normal Appearance: Positive for: Well-Appearing, Non-Toxic, Comfortable Pain Distress: None Mental Status: Positive for: Alert and Oriented X 3 - Systems Exam Head: Present: Atraumatic, Normocephalic Pupils: Present: PERRL Extroacular Muscles: Present: EOMI Conjunctiva: Present: Normal Mouth: Present: Moist Mucous Membranes Neck: Present: Normal Range of Motion Respiratory/Chest: Present: Clear to Auscultation, Good Air Exchange. No: Respiratory Distress, Accessory Muscle Use Cardiovascular: Present: Regular Rate and Rhythm, Normal S1, S2. No: Murmurs Abdomen: Present: Normal Bowel Sounds. No: Tenderness, Distention, Peritoneal Signs Back: Present: Normal Inspection Upper Extremity: Present: Normal Inspection. No: Cyanosis, Edema Lower Extremity: Present: Normal Inspection. No: Edema Neurological: Present: GCS=15, CN II-XII Intact, Speech Normal Skin: Present: Dry, Normal Color, Other (Slightly cool to touch). No: Rashes, Diaphoretic Psychiatric: Present: Alert, Oriented x 3, Normal Insight, Normal Concentration Medical Decision Making ED Course and Treatment: 08/28/17 03:50 Impression: 77 year old female presents for becoming unresponsive s/p hypoglycemic episode Plan: -- Labs -- Urinalysis -- Reassess and disposition Prior Visits: Notes and results from previous visits were reviewed. Patient was last seen in the emergency department on 08/03/17 presents for becoming unresponsive s/p low blood sugar. Patient was admitted. Progress Notes: 08/28/17 07:00 EKG shows NSR at 66 BPM with T-wave changes in V2, lead III, avl and avf, no ST- segment elevations or depression, nonspecific changes. Interpreted by me. 08/28/17 07:02 pt mild renal insufficiency. BG is relatively stable after PO. no signs of infection. if urinalysis neg will d/c advised to adjust insulin dosage. - Lab Interpretations Lab Results: 08/28/17 03:18 08/28/17 03:18 Lab Results 08/28/17 10:28: POC Glucose (mg/dL) 73 08/28/17 09:22: Urine Color Light yellow, Urine Appearance Sl cloudy, Urine pH 7.5, Ur Specific [place] 1.015, Urine Protein 30 H, Urine Glucose (UA) Negative , Urine Ketones Negative, Urine Blood Negative, Urine Nitrate Negative, Urine Bilirubin Negative, Urine Urobilinogen 0.2, Ur Leukocyte Esterase Negative, Urine RBC 0 - 2, Urine WBC 0 - 2, Ur Epithelial Cells 0 - 2, Urine Bacteria Few , Hyaline Casts 0 - 2, Urine Other Uyeast 08/28/17 08:50: POC Glucose (mg/dL) 87 08/28/17 06:35: POC Glucose (mg/dL) 87 08/28/17 05:40: POC Glucose (mg/dL) 61 L 08/28/17 03:18: Sodium 142, Potassium 3.8, Chloride 104, Carbon Dioxide 29, Anion Gap 13, BUN 19, Creatinine 1.5 H, Est GFR ( Amer) 41, Est GFR (Non- Af Amer) 34, Random Glucose 96, Calcium 8.8, Total Bilirubin 0.7, AST 26, ALT 22 , Alkaline Phosphatase 116, Total Protein 7.0, Albumin 3.5, Globulin 3.5, Albumin/Globulin Ratio 1.0 L 08/28/17 03:18: WBC 6.9 D, RBC 5.59, Hgb 13.2 D, Hct 45.1, MCV 80.7 D, MCH 23.6 L, MCHC 29.3 L, RDW 23.6 H, Plt Count 210, Gran % 57.5, Lymph % (Auto) 32.9 , [place] % (Auto) 7.2 H, Eos % (Auto) 2.0, Baso % (Auto) 0.4, Gran # 3.99, Lymph # 2.3, [place] # 0.5, Eos # 0.1, Baso # 0.03 I have reviewed the lab results: Yes - Scribe Statement The provider has reviewed the documentation as recorded by the Scribe Case Trotter Provider Scribe Attestation: All medical record entries made by the Scribe were at my direction and personally dictated by me. I have reviewed the chart and agree that the record accurately reflects my personal performance of the history, physical exam, medical decision making, and the department course for this patient. I have also personally directed, reviewed, and agree with the discharge instructions and disposition. Disposition/Present on Arrival - Present on Arrival Any Indicators Present on Arrival: Yes History of DVT/PE: No History of Uncontrolled Diabetes: Yes Urinary Catheter: No History of Decub. Ulcer: No History Surgical Site Infection Following: None - Disposition Have Diagnosis and Disposition been Completed?: Yes Diagnosis: Hypoglycemia Disposition: HOME/ ROUTINE Disposition Time: 02:00 Patient Plan: Discharge Condition: IMPROVED Discharge Instructions (ExitCare): Diabetic Hypoglycemia (ED) Additional Instructions: hablas con ti medico para dimunuir cantidad de insulina que estas tomando. Referrals: PCP,NO [Primary Care Provider] - Follow up with primary Forms: [employer] (Vietnamese)
[2017-08-28 05:11] VITALS: RESP 18; TEMP 98.2
--- NOTE | 2017-08-28 08:09 | ED PDOC ---
Physical Exam Vital Signs Reviewed: Yes Vital Signs Temp Pulse Resp BP Pulse Ox 08/28/17 09:24 72 18 188/86 H 97 08/28/17 01:44 98.2 F 84 18 146/84 99 Temperature: Afebrile Blood Pressure: Normal Pulse: Regular Respiratory Rate: Normal Finger Stick Blood Glucose: 87 Medical Decision Making ED Course and Treatment: 08/28/17 08:08 Patient endorsed to me by Dr. Anguiano at 07:00, with plan to discharge patient home after urinalysis results. 08/28/17 10:02 Scribe present as clinical research coordinator. On re-evaluation, patient appears well and resting comfortably in no acute distress. Patient admits to no eating dinner last night. Repeat accu-cheks have been normal. I have discussed the results and plan with the patient, who expresses understanding. Patient in agreement with plan to be discharged home. Patient is stable for discharge. Patient was instructed to follow up with physician or return if symptoms worsen or new concerning symptoms arise. - Lab Interpretations Lab Results: 08/28/17 03:18 08/28/17 03:18 Lab Results 08/28/17 09:22: Urine Color Light yellow, Urine Appearance Sl cloudy, Urine pH 7.5, Ur Specific [place] 1.015, Urine Protein 30 H, Urine Glucose (UA) Negative , Urine Ketones Negative, Urine Blood Negative, Urine Nitrate Negative, Urine Bilirubin Negative, Urine Urobilinogen 0.2, Ur Leukocyte Esterase Negative, Urine RBC 0 - 2, Urine WBC 0 - 2, Ur Epithelial Cells 0 - 2, Urine Bacteria Few , Hyaline Casts 0 - 2, Urine Other Uyeast 08/28/17 08:50: POC Glucose (mg/dL) 87 08/28/17 06:35: POC Glucose (mg/dL) 87 08/28/17 05:40: POC Glucose (mg/dL) 61 L 08/28/17 03:18: Sodium 142, Potassium 3.8, Chloride 104, Carbon Dioxide 29, Anion Gap 13, BUN 19, Creatinine 1.5 H, Est GFR ( Amer) 41, Est GFR (Non- Af Amer) 34, Random Glucose 96, Calcium 8.8, Total Bilirubin 0.7, AST 26, ALT 22 , Alkaline Phosphatase 116, Total Protein 7.0, Albumin 3.5, Globulin 3.5, Albumin/Globulin Ratio 1.0 L 08/28/17 03:18: WBC 6.9 D, RBC 5.59, Hgb 13.2 D, Hct 45.1, MCV 80.7 D, MCH 23.6 L, MCHC 29.3 L, RDW 23.6 H, Plt Count 210, Gran % 57.5, Lymph % (Auto) 32.9 , [place] % (Auto) 7.2 H, Eos % (Auto) 2.0, Baso % (Auto) 0.4, Gran # 3.99, Lymph # 2.3, [place] # 0.5, Eos # 0.1, Baso # 0.03 Disposition/Present on Arrival - Present on Arrival Any Indicators Present on Arrival: Yes History of DVT/PE: No History of Uncontrolled Diabetes: Yes Urinary Catheter: No History of Decub. Ulcer: No History Surgical Site Infection Following: None - Disposition Have Diagnosis and Disposition been Completed?: Yes Diagnosis: Hypoglycemia Disposition: HOME/ ROUTINE Disposition Time: 10:02 Patient Problems: Current Active Problems Problem Status Onset Hypoglycemia Acute Condition: IMPROVED Discharge Instructions (ExitCare): Diabetic Hypoglycemia (ED) Additional Instructions: hablas con ti medico para dimunuir cantidad de insulina que estas tomando. Referrals: PCP,NO [Primary Care Provider] - Follow up with primary Forms: [place] ([place])
[2017-08-28 09:24] VITALS: BP 188/86; PULSE 72; O2SAT 97
[2017-08-28 09:28] LABS: PH,URINE 7.5 (4.7-8.0); URINE BILIRUBIN NEGATIVE (NEGATIVE); URINE BLOOD NEGATIVE (NEGATIVE); URINE GLUCOSE (UA) NEGATIVE (NEGATIVE); URINE LEUKOCYTE ESTERASE NEGATIVE Leu/uL (NEGATIVE); URINE NITRATE NEGATIVE (NEGATIVE); URINE PROTEIN 30 mg/dL (<30 mg/dL); URINE UROBILINOGEN 0.2 E.U./dL (<1 E.U./dL)
[2017-08-28 09:31] LABS: URINE APPEARANCE SL CLOUDY (CLEAR); URINE COLOR LIGHT YELLOW (YELLOW)
[2017-08-28 09:40] LABS: URINE BACTERIA FEW (NEG); URINE EPITHELIAL CELLS 0 - 2 /hpf (0-5); URINE HYALINE CAST 0 - 2 /hpf; URINE RBC 0 - 2 /hpf (0-2); URINE WBC 0 - 2 /hpf (0-6)
--- NOTE | 2017-08-28 14:47 | CARD ---
APPROVED REPORT EKG Measurement Heart [id number] <Conclusion> Normal sinus rhythm Possible Left atrial enlargement Rightward axis Septal infarct, age undetermined Abnormal ECG
== END 2017-08-28 13:16 | disposition home or self-care (01) ==
LOC: ED 01:43
DX: E11.649 Type 2 diabetes mellitus with hypoglycemia without coma (principal); Z79.4 Long term (current) use of insulin